=== PATIENT | male | born 1935 | race Caucasian/White ===

== ENCOUNTER 2016-12-15 20:34 | Inpatient (IN) | payer OTHER, BC ==
[~2016-12-15] VITALS: Ht 170.2 cm; Wt 97.0 kg
[~2016-12-15 20:34] MED LIST: BICA50TA6 PO; HYDR1OIN11 TOP; LISI-725 PO; LPR25 PO; NVLNI SC; SIMV20TA5 PO; [UNRECOGNIZED DRUG - CODE] TOP
--- NOTE | 2016-12-15 21:33 | DIAGNOSTIC IMAGING REPORT ---
CHEST ONE VIEW PORTABLE HISTORY: Atypical chest pain. Short of breath. COMPARISON: None. FINDINGS: The heart is mildly enlarged. No pleural effusions. No pneumothorax. Perihilar and bibasilar interstitial and vascular thickening. This favors mild pulmonary edema. Calcified granuloma within the right midlung zone. Poststernotomy changes. Multiple electronic devices are overlying the chest. IMPRESSION: Cardiomegaly with mild delayed interstitial pulmonary edema. Electronically signed by: Zoltan Hdz M.D. 12/15/2016 9:32 PM Dictated Date/Time: 12/15/2016 9:31 PM
[2016-12-15 21:45] LABS: BASO % 0.3 %; BASO ABS # 0.03 K/uL (0-0.2); EOS % 3.5 %; IG% 0.4 %; LYMPH ABS # 1.97 K/uL (1.2-3.4); MEAN CORPUSCULAR HEMOGLOBIN 28.4 pg (25-34); MEAN CORPUSCULAR HGB CONC 30.9 g/dl (32-36); MEAN PLATELET VOLUME 8.7 fL (7.4-10.4); MONO % 7.2 %; NEUT % 66.6 %; PLATELET COUNT 310 K/uL (130-400); WHITE BLOOD COUNT 8.95 K/uL (4.8-10.8)
[2016-12-15 22:01] LABS: PARTIAL THROMBOPLASTIN RATIO 1.5; PROTHROMBIN TIME (PATIENT) 70.8 SECONDS (9.0-12.0)
[2016-12-15 22:03] LABS: ALT/SGPT 29 U/L (12-78); BLOOD UREA NITROGEN 64 mg/dl (7-18); BUN/CREATININE RATIO 30.5 (10-20); CALCIUM 7.8 mg/dl (8.5-10.1); CARBON DIOXIDE 24 mmol/L (21-32); CHLORIDE 109 mmol/L (98-107); GLUCOSE 177 mg/dl (70-99); INR 6.1 (0.9-1.1); SODIUM 144 mmol/L (136-145)
[2016-12-15 22:08] LABS: ALB/GLOB RATIO 0.8 (0.9-2); ALKALINE PHOSPHATASE 72 U/L (45-117); AST/SGOT 20 U/L (15-37); CKMB/CK RATIO 4.9 (0-3.0)
[2016-12-15 22:10] LABS: COMPLETE YES; OVALOCYTES 1+; POLYCHROMASIA 1+; SCHISTOCYTES 1+
[2016-12-15] MEDS ORDERED: ASPI81TA28 PO (22:11)
[2016-12-15] MEDS ORDERED: ACET325T96 PO (22:11)
[2016-12-15] MEDS ORDERED: INSU3INJ3 SC (22:11)
[2016-12-15] MEDS ORDERED: FERR325T5 PO (22:11)
[2016-12-15] MEDS ORDERED: WARF6TAB PO (22:11)
[2016-12-15] MEDS ORDERED: ATOR10TA88 PO (22:11)
[2016-12-15] MEDS ORDERED: FRS/40 PO (22:11)
[2016-12-15] MEDS ORDERED: NVLGI/PEN SC (22:11)
[2016-12-15] MEDS ORDERED: MULT-506 PO (22:11)
[2016-12-15] MEDS ORDERED: CLOP1TAB15 PO (22:11)
[2016-12-15] MEDS ORDERED: IPRASOL4 INH (22:11)
[2016-12-15] MEDS ORDERED: CARV6.252 PO (22:11)
[2016-12-16] VITALS (22 sets, daily range): BP systolic 98–152; BP diastolic 50–82; PULSE 61–88; TEMP 36.2–36.9; O2SAT 83–99; Ht 170.2 cm; Wt 97.0 kg
[2016-12-16] MEDS ORDERED: ACETAMINOPHEN IV 100 ML IV PRN
[2016-12-16] MEDS ORDERED: DEXTROSE 50% 50 ML SYR IV PRN
[2016-12-16] MEDS ORDERED: GLUCOSE 40% GEL 15 GM TUBE PO PRN
[2016-12-16] MEDS ORDERED: GLUCOSE 10 TABS/TUBE PO PRN
[2016-12-16] MEDS ORDERED: ONDANSETRON INJ 2 MG/ML 2 ML VIAL IV PRN
[2016-12-16] MEDS ORDERED: GLUCAGON FOR INJ 1 MG VIAL SQ PRN
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
[2016-12-16 00:36] LABS: HEMATOCRIT 25.4 % (42-52)
[2016-12-16] MEDS ORDERED: PHYTONADIONE INJ 10 MG in SODIUM CHLORIDE 0.9% 50ML 50 ML IV ONE (01:00)
[2016-12-16] MEDS ORDERED: PANTOprazole INJ 80 MG in DEXTROSE 5% 100ML IV SCH (01:00)
[2016-12-16] MEDS: PANTOprazole INJ 40 MG in DEXTROSE 5% 100ML IV SCH ×5 (01:08→19:57)
[2016-12-16 01:10] LABS: CKMB/CK RATIO 4.2 (0-3.0)
[2016-12-16] MEDS: INSULIN DETEMIR FLEXPEN/FLEX TOUCH 100 UNITS/ML 3ML SC SCH ×2 (01:15→21:22)
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
[2016-12-16] MEDS: INSULIN ASPART 100 UNITS/ML 3 ML PEN SC SCH ×4 (07:00→21:21)
[2016-12-16 09:15] LABS: PARTIAL THROMBOPLASTIN RATIO 1.2; PROTHROMBIN TIME (PATIENT) 22.5 SECONDS (9.0-12.0)
[2016-12-16 09:22] LABS: HEMATOCRIT 26.8 % (42-52); MEAN CELL VOLUME 88.7 fL (80-100); MEAN CORPUSCULAR HEMOGLOBIN 28.1 pg (25-34); MEAN CORPUSCULAR HGB CONC 31.7 g/dl (32-36); MEAN PLATELET VOLUME 8.4 fL (7.4-10.4); PLATELET COUNT 253 K/uL (130-400); RED BLOOD COUNT 3.02 M/uL (4.7-6.1); WHITE BLOOD COUNT 9.45 K/uL (4.8-10.8)
[2016-12-16 09:31] LABS: BASO % 0.5 %; BASO ABS # 0.05 K/uL (0-0.2); COMPLETE YES; EOS % 4.4 %; IG% 0.3 %; LYMPH % 21.2 %; MONO % 6.2 %; NEUT % 67.4 %; POLYCHROMASIA 1+
[2016-12-16 09:36] LABS: BUN/CREATININE RATIO 28.2 (10-20); CREATININE 2.1 mg/dl (0.60-1.40); MAGNESIUM 2.2 mg/dl (1.8-2.4); POTASSIUM 4.8 mmol/L (3.5-5.1)
[2016-12-16 09:45] LABS: CKMB/CK RATIO 5.4 (0-3.0)
[2016-12-16] MEDS ORDERED: CARVEDILOL 3.125 MG TAB PO STA (09:58)
--- NOTE | 2016-12-16 10:51 | Nephrology Consultation ---
Nephrology Consultation Date & Providers Date of Consultation: Dec 16, 2016. Primary Care Provider: Callum Roblero D.O. Referring Provider: Reason for Consultation Evaluation management for chronic kidney disease and anemia. History of Present Illness Jonnie Is a 81-year-old gentlemen with past medical history significant for stage 4 chronic kidney disease, hypertension, diabetes, coronary artery disease , congestive heart failure with low ejection fraction admitted to the hospital with chest pain. nephrologic consult was requested to manage at chronic kidney disease and anemia. Electronic medical records including labs and imaging are reviewed in detail during patient's visit. Jonnie has history of coronary artery disease and previously had a CABG 20 years ago, recently had acute [place] and stent in left main and circumflex at almost 2 weeks ago. yesterday he was admitted to the hospital after he experienced sudden chest pain and shortness of breath. On admission EKG showed T inversion laterally ED and mild elevation in troponin. was given nitroglycerin and his chest pain resolved. Chest x-ray showed mild pulmonary condition. Currently he is otherwise asymptomatic and denies any further episode of shortness of breath, palpitation or chest pain. His ejection fraction is 15-20 percent, chronically on Lasix 40 twice a day which has been on hold. On admission he was also found to be significantly anemic his hemoglobin was 7.1, he was given 2 units of blood transfusion and hemoglobin now improved to 8.5. During his recent hospitalization in [facility] he had an episode of GI bleeding requiring blood transfusion. He has them AFib, has been on Coumadin, INR on admission was above 6 and Coumadin has been on hold, was given vitamin K. Has history of via chronic kidney disease size, he follows with a senior asp net developer in [facility], baseline creatinine reported to be 2.2-2.3, on admission creatinine was 2.1. No urinalysis or renal ultrasound available. Current estimated GFR around 29.. He denies any voiding symptoms, dysuria, hematuria or flank pain. Has history of prostate cancer currently on Casodex. His a ex- smoker, quit smoking more than 35 years ago, no family history of chronic kidney disease or end-stage renal disease. Allergies Coded Allergies: Iodine (Verified Allergy, Intermediate, "I GET HOT.", 01/14/15) Inpatient Medications Current Inpatient Medications Medications (Trade) Dose Ordered Sig/Rick Route Start Time Stop Time Status Last Admin Dose Admin Insulin Detemir (Levemir Flexpen/ FlexTouch) 10 unit HS SC 12/16/16 01:15 01/15/17 01:14 Albuterol/ Ipratropium (Duoneb) 3 ml QID PRN INH 12/16/16 00:00 01/15/17 00:00 Ondansetron HCl (Zofran Inj) 4 mg Q6H PRN IV 12/16/16 00:00 01/15/17 00:00 Insulin Aspart (novoLOG ASPART) SLIDING SCALE If C... ACHS SC 12/16/16 07:00 01/15/17 06:59 Glucose (Glucose 40% Gel) UD PRN PO 12/16/16 00:00 01/15/17 00:00 Glucose (Glucose Chew Tab) 1 tabs UD PRN PO 12/16/16 00:00 01/15/17 00:00 Dextrose (Dextrose 50% 50ML Syringe) 50 ml UD PRN IV 12/16/16 00:00 01/15/17 00:00 Glucagon (Glucagon Inj) 1 mg UD PRN SQ 12/16/16 00:00 01/15/17 00:00 Acetaminophen 100 ml @ 400 mls/hr Q8H PRN IV 12/16/16 00:00 01/15/17 00:00 Pantoprazole Sodium 40 mg/ Dextrose 100 ml @ 20 mls/hr Q5H IV 12/16/16 01:15 01/15/17 01:14 12/16/16 05:36 20 MLS/HR Carvedilol (Coreg Tab) 6.25 mg BID PO 12/16/16 21:00 01/15/17 20:59 Atorvastatin Calcium (Lipitor Tab) 80 mg QAM PO 12/17/16 09:00 01/16/17 08:59 Clopidogrel Bisulfate (plAVix TAB) 75 mg QAM PO 12/17/16 09:00 01/16/17 08:59 Family History Patient reports no known family medical history. Social History Smoking Status: Former Smoker Smokeless Tobacco Use: No Drug Use: none Marital Status: Housing Status: lives with family Occupation: retired Review of Systems A complete review of systems was performed. Pertinent positives are noted above. All other systems are negative. Physical Exam Date Time Temp Pulse Resp B/P (MAP) Pulse Ox O2 Delivery O2 Flow Rate FiO2 12/16/16 08:00 Room Air 12/16/16 07:53 36.8 75 18 120/64 (82) 96 12/16/16 05:30 36.2 62 20 106/50 95 2.0 12/16/16 04:30 36.3 70 18 127/60 98 2.0 12/16/16 04:00 99 Nasal Cannula 2.0 12/16/16 04:00 36.3 67 18 127/56 98 2.0 12/16/16 03:44 36.3 68 18 127/56 99 2.0 12/16/16 02:30 36.6 72 18 119/68 99 2.0 12/16/16 01:30 36.6 68 18 110/63 98 2.0 12/16/16 01:00 36.6 70 16 110/63 95 2.0 12/16/16 00:46 36.5 72 16 108/50 99 2.0 12/16/16 00:13 36.5 74 18 133/68 93 Nasal Cannula 2.0 12/15/16 23:42 36.5 72 18 108/50 99 12/15/16 23:15 72 18 108/50 99 Nasal Cannula 2.0 12/15/16 22:00 63 20 110/56 98 Room Air 12/15/16 21:19 97 Nasal Cannula 2.0 12/15/16 21:19 97 Nasal Cannula 2.0 12/15/16 20:48 77 12/15/16 20:41 88 Room Air 12/15/16 20:41 96 Nasal Cannula 2.0 12/15/16 20:41 36.5 79 20 118/49 88 Room Air GENERAL: Elderly male, AAA x 3, pleasant, healthy-appearing, in mild distress. HEENT: Atraumatic, normocephalic. NECK: Supple, no JVD, no carotid bruit appreciated. ENT: No sinus tenderness MOUTH and THROAT: Moist oral mucosa, no oral ulcer or pharyngeal erythema RESPIRATORY: Normal breathing efforts, rales and occasional wheezes bilaterally. CARDIOVASCULAR: S1, S2 normal, rate rhythm regular. ABDOMEN: Soft, nontender, positive bowel sound. MUSCULOSKELETAL: No CVA tenderness. No joint swelling, erythema or tenderness. Normal range of motion. SKIN: No skin rash EXTREMITY: No lower extremity edema NEURO: No gross focal neurological deficit, speech fluent. PSYCHIATRY: Normal mood and judgment Laboratory Results Last 24 Hours Test 12/15/16 21:20 12/16/16 00:29 12/16/16 01:10 12/16/16 06:46 White Blood Count 8.95 K/uL Red Blood Count 2.50 M/uL Hemoglobin 7.1 g/dL 7.4 g/dL Hematocrit 23.0 % 25.4 % Mean Corpuscular Volume 92.0 fL Mean Corpuscular Hemoglobin 28.4 pg Mean Corpuscular Hemoglobin Concent 30.9 g/dl Platelet Count 310 K/uL Mean Platelet Volume 8.7 fL Neutrophils (%) (Auto) 66.6 % Lymphocytes (%) (Auto) 22.0 % Monocytes (%) (Auto) 7.2 % Eosinophils (%) (Auto) 3.5 % Basophils (%) (Auto) 0.3 % Neutrophils # (Auto) 5.96 K/uL Lymphocytes # (Auto) 1.97 K/uL Monocytes # (Auto) 0.64 K/uL Eosinophils # (Auto) 0.31 K/uL Basophils # (Auto) 0.03 K/uL RDW Standard Deviation 52.9 fL RDW Coefficient of Variation 16.1 % Immature Granulocyte % (Auto) 0.4 % Immature Granulocyte # (Auto) 0.04 K/uL Polychromasia 1+ Ovalocytes 1+ Schistocytes 1+ Prothrombin Time 70.8 SECONDS Prothromb Time International Ratio 6.1 Activated Partial Thromboplast Time 38.7 SECONDS Partial Thromboplastin Ratio 1.5 Sodium Level 144 mmol/L Potassium Level 4.0 mmol/L Chloride Level 109 mmol/L Carbon Dioxide Level 24 mmol/L Anion Gap 11.0 mmol/L Blood Urea Nitrogen 64 mg/dl Creatinine 2.10 mg/dl Est Creatinine Clear Calc Drug Dose 32.5 ml/min Estimated GFR () 33.7 Estimated GFR (Non- 29.1 BUN/Creatinine Ratio 30.5 Random Glucose 177 mg/dl Calcium Level 7.8 mg/dl Total Bilirubin 0.3 mg/dl Direct Bilirubin < 0.1 mg/dl Aspartate Amino Transf (AST/SGOT) 20 U/L Alanine Aminotransferase (ALT/SGPT) 29 U/L Alkaline Phosphatase 72 U/L Total Creatine Kinase 35 U/L 38 U/L Creatine Kinase MB 1.7 ng/ml 1.6 ng/ml Creatine Kinase MB Ratio 4.9 4.2 Troponin I 0.042 ng/ml 0.136 ng/ml Total Protein 6.5 gm/dl Albumin 2.9 gm/dl Globulin 3.6 gm/dl Albumin/Globulin Ratio 0.8 Lipase 226 U/L Bedside Glucose 125 mg/dl 152 mg/dl Test 12/16/16 08:52 White Blood Count 9.45 K/uL Red Blood Count 3.02 M/uL Hemoglobin 8.5 g/dL Hematocrit 26.8 % Mean Corpuscular Volume 88.7 fL Mean Corpuscular Hemoglobin 28.1 pg Mean Corpuscular Hemoglobin Concent 31.7 g/dl Platelet Count 253 K/uL Mean Platelet Volume 8.4 fL Neutrophils (%) (Auto) 67.4 % Lymphocytes (%) (Auto) 21.2 % Monocytes (%) (Auto) 6.2 % Eosinophils (%) (Auto) 4.4 % Basophils (%) (Auto) 0.5 % Neutrophils # (Auto) 6.36 K/uL Lymphocytes # (Auto) 2.00 K/uL Monocytes # (Auto) 0.59 K/uL Eosinophils # (Auto) 0.42 K/uL Basophils # (Auto) 0.05 K/uL RDW Standard Deviation 54.9 fL RDW Coefficient of Variation 17.1 % Immature Granulocyte % (Auto) 0.3 % Immature Granulocyte # (Auto) 0.03 K/uL Polychromasia 1+ Prothrombin Time 22.5 SECONDS Prothromb Time International Ratio 2.0 Activated Partial Thromboplast Time 32.2 SECONDS Partial Thromboplastin Ratio 1.2 Sodium Level 145 mmol/L Potassium Level 4.8 mmol/L Chloride Level 111 mmol/L Carbon Dioxide Level 29 mmol/L Anion Gap 5.0 mmol/L Blood Urea Nitrogen 59 mg/dl Creatinine 2.10 mg/dl Est Creatinine Clear Calc Drug Dose 31.4 ml/min Estimated GFR () 33.7 Estimated GFR (Non- 29.1 BUN/Creatinine Ratio 28.2 Random Glucose 163 mg/dl Magnesium Level 2.2 mg/dl Total Bilirubin 0.6 mg/dl Direct Bilirubin 0.2 mg/dl Aspartate Amino Transf (AST/SGOT) 19 U/L Alanine Aminotransferase (ALT/SGPT) 29 U/L Alkaline Phosphatase 71 U/L Total Creatine Kinase 37 U/L Creatine Kinase MB 2.0 ng/ml Creatine Kinase MB Ratio 5.4 Troponin I 0.184 ng/ml Total Protein 6.2 gm/dl Albumin 2.9 gm/dl Impression (1) Chronic renal disease, stage IV (2) Anemia (3) Elevated INR (4) CHF (congestive heart failure) (5) Hypertension Jonnie Is a 81-year-old gentlemen with them history of stage 4 chronic kidney disease, hypertension, coronary artery disease, congestive heart failure with systolic dysfunction admitted to the hospital with chest pain. Was recently found to have anemia with GI bleeding requiring blood transfusion. On admission hemoglobin was 7.1, received 2 units of blood transfusion and hemoglobin improved to 8.5. His INR was elevated at 6, Coumadin on hold and received vitamin K. troponin was just mildly elevated probably secondary to demand ischemia in the setting of anemia. chest pain currently totally resolved and patient is otherwise feeling fine as hemoglobin improved to 8.5 Has stage 4 chronic kidney disease, baseline creatinine seems to be some at 2.2- 2.3, unclear etiology but could be secondary to have microvascular disease or cardiorenal syndrome type 2. he follows with senior asp net developer in [place]. His renal functions currently at baseline, 2.1 and estimated GFR 29. Recommendations --considering patient's significant history of coronary artery disease, CHF, low ejection fraction, suggest keeping hemoglobin above 9 --will give 1 dose of Epogen 73744 units --resume Lasix 40 milligram twice a day --Avoid nephrotoxins medications, avoid IV fluid --may need GI workup if no recent EGD or colonoscopy --monitor renal function with daily renal panel however, patient's renal function seems to be at his baseline --After discharge he will follow with his senior asp net developer for further need for Epogen or Venofer. Thank you for allowing me to participate in your patient's care. It was a pleasure to see Jonnie. This chart was completed utilizing [employer] Speech and voice recognition software. Grammatical errors, random word insertions, pronoun errors and incomplete sentences are occasional consequences of this system. Any questions or concerns about the content, text or information contained within the body of this dictation should be addressed directly to the physician for clarification.
[2016-12-16] MEDS ORDERED: EPOETIN ALFA 10,000 UNITS/ML VIAL SQ SCH (11:00)
[2016-12-16 13:10] LABS: CALCIUM 8.3 mg/dl (8.5-10.1)
[2016-12-16 13:48] LABS: FERRITIN 50.9 ng/ml (8.0-388.0)
--- NOTE | 2016-12-16 14:08 | Gastrointestinal Consultation ---
Gastrointestinal Consultation Date of Consultation: Dec 16, 2016 Attending Physician: Dr. Sharma Consulting Physician: Dr. Painter Reason for Consultation: Anemia History of Present Illness Patient is a 81 year old male who presented to the [facility] on 12/15 with complaints of CP and SOB. He was recently admitted to [facility], and underwent cardiac cath with stents x2. Post-cath he developed A-fib, and was placed on Coumadin therapy, in addition to ASA and Plavix therapy. Prior to his discharge he reportedly was anemic, and had a "GI Bleed". The patient states that he underwent an EGD and Colonoscopy while hospitalized, however, when records were requested, there was no report of these tests having been performed at that time. Upon arrival to our ER he was noted to have an H/H of 7.1/23 and his INR >6. He was admitted to the [address] [place] [address] ICU and was transfused 2u PRBC. He was started on a Protonix gtt, and had his INR reversed with Vitamin K. He has not had any overt GI bleeding since his arrival. He does admit to black stools, however, he attributes this to his Iron therapy. At the time that I saw him, he denied any chest pain, abdominal pain, hematemesis, melena or hematochezia. He states that he feels better following his blood transfusion. He does continue to have some SOB and JEAN-BAPTISTE. He denies any further complaints. Past Medical/Surgical History Medical Problems: (1) Anemia Status: Acute (2) Chest pain Status: Acute (3) Elevated INR Status: Acute (4) GI bleed Status: Acute (5) Renal insufficiency Status: Acute (6) SOB (shortness of breath) Status: Acute Past Medical History: 1) CAD 2) Chronic Kidney Disease (Stage IV) 3) HTN 4) DM 5) LVEF 15-20% 6) Left sided heart failure 7) Anemia 8) Prostate CA Past Surgical History: 1) CABG 2) Cardiac Cath with stents x2 3) EGD 4) Colonoscopy Family History Patient reports no known family medical history. Social History Smoking Status: Former Smoker Drug Use: none Marital Status: Housing Status: lives with family Occupation Status: retired Allergies Coded Allergies: Iodine (Verified Allergy, Intermediate, "I GET HOT.", 01/14/15) Current Medications Home Meds and Scripts Medications Dose Route/Sig Max Daily Dose Days Date Category Dose Instructions Tylenol (Acetaminophen) 325 Mg Tab 650 Mg PO Q6H PRN 12/15/16 Reported Duoneb (Ipratropium-Albuterol) 3 Ml Nebu 1 Treatment INH QID PRN 12/15/16 Reported Lipitor (Atorvastatin Calcium) 10 Mg Tab 10 Mg PO QPM 12/15/16 Reported Coumadin (Warfarin Sodium) 6 Mg Tab 6 Mg PO QPM 12/15/16 Reported TAKE 6 MG EVERY DAY OR OTHERWISE DIRECTED TO TAKE BY ANTICOAGULATION CLINIC/MD Multivitamin (Multivitamins) Tab 1 Tab PO QAM 12/15/16 Reported Levemir Flextouch (Insulin Detemir) 100 Unit/Ml Inj 50 Units SC HS 12/15/16 Reported Novolog Flexpen (Insulin Aspart) 100 Units/Ml Inj 10 Units SC TIDM 12/15/16 Reported Lasix (Furosemide) 40 Mg Tab 40 Mg PO BID 12/15/16 Reported Ferrous Sulfate 325 Mg Tab 325 Mg PO BID 12/15/16 Reported Plavix (Clopidogrel Bisulfate) 75 Mg Tab 75 Mg PO QAM 12/15/16 Reported Coreg (Carvedilol) 6.25 Mg Tab 6.25 Mg PO BID 12/15/16 Reported Aspirin Ec (Aspirin) 81 Mg Tab 81 Mg PO QAM 12/15/16 Reported Casodex (Bicalutamide) 50 Mg Tab 50 Mg PO QAM 01/14/15 Reported Review of Systems Constitutional: No fever, No chills, No weight loss ENT: No sore throat Respiratory: + shortness of breath, + dyspnea on exertion, No cough, No wheezing Cardiac: No chest pain, No edema Abdomen: No nausea, No vomiting, No diarrhea, No constipation, No dysphagia, No odynophagia, No jaundice Male : No dysuria, No hematuria Psych: No depression symptoms Heme: No abnormal bleeding/bruising Endo: + fatigue Skin: No rash, No itch Physical Exam Date Time Temp Pulse Resp B/P (MAP) Pulse Ox O2 Delivery O2 Flow Rate FiO2 12/16/16 12:00 Room Air 12/16/16 11:44 36.5 88 16 128/63 (84) 97 12/16/16 08:00 Room Air 12/16/16 07:53 36.8 75 18 120/64 (82) 96 12/16/16 05:30 36.2 62 20 106/50 95 2.0 12/16/16 04:30 36.3 70 18 127/60 98 2.0 12/16/16 04:00 99 Nasal Cannula 2.0 12/16/16 04:00 36.3 67 18 127/56 98 2.0 12/16/16 03:44 36.3 68 18 127/56 99 2.0 12/16/16 02:30 36.6 72 18 119/68 99 2.0 12/16/16 01:30 36.6 68 18 110/63 98 2.0 12/16/16 01:00 36.6 70 16 110/63 95 2.0 12/16/16 00:46 36.5 72 16 108/50 99 2.0 12/16/16 00:13 36.5 74 18 133/68 93 Nasal Cannula 2.0 12/15/16 23:42 36.5 72 18 108/50 99 12/15/16 23:15 72 18 108/50 99 Nasal Cannula 2.0 12/15/16 22:00 63 20 110/56 98 Room Air 12/15/16 21:19 97 Nasal Cannula 2.0 12/15/16 21:19 97 Nasal Cannula 2.0 12/15/16 20:48 77 12/15/16 20:41 88 Room Air 12/15/16 20:41 96 Nasal Cannula 2.0 12/15/16 20:41 36.5 79 20 118/49 88 Room Air General Appearance: + pertinent finding (Chronic ill-apperaing, NAD) Eyes: PERRL, EOMI ENT: hearing grossly normal Neck: supple, no adenopathy Respiratory/Chest: + decreased breath sounds (at bilateral bases) Cardiovascular: regular rate, rhythm Abdomen: normal bowel sounds, non tender, soft Extremities: no pedal edema Neurologic/Psych: alert, oriented x 3 Skin: no jaundice Laboratory Results Last 24 Hours Test 12/15/16 21:20 12/16/16 00:29 12/16/16 01:10 12/16/16 06:46 White Blood Count 8.95 K/uL Red Blood Count 2.50 M/uL Hemoglobin 7.1 g/dL 7.4 g/dL Hematocrit 23.0 % 25.4 % Mean Corpuscular Volume 92.0 fL Mean Corpuscular Hemoglobin 28.4 pg Mean Corpuscular Hemoglobin Concent 30.9 g/dl Platelet Count 310 K/uL Mean Platelet Volume 8.7 fL Neutrophils (%) (Auto) 66.6 % Lymphocytes (%) (Auto) 22.0 % Monocytes (%) (Auto) 7.2 % Eosinophils (%) (Auto) 3.5 % Basophils (%) (Auto) 0.3 % Neutrophils # (Auto) 5.96 K/uL Lymphocytes # (Auto) 1.97 K/uL Monocytes # (Auto) 0.64 K/uL Eosinophils # (Auto) 0.31 K/uL Basophils # (Auto) 0.03 K/uL RDW Standard Deviation 52.9 fL RDW Coefficient of Variation 16.1 % Immature Granulocyte % (Auto) 0.4 % Immature Granulocyte # (Auto) 0.04 K/uL Polychromasia 1+ Ovalocytes 1+ Schistocytes 1+ Prothrombin Time 70.8 SECONDS Prothromb Time International Ratio 6.1 Activated Partial Thromboplast Time 38.7 SECONDS Partial Thromboplastin Ratio 1.5 Sodium Level 144 mmol/L Potassium Level 4.0 mmol/L Chloride Level 109 mmol/L Carbon Dioxide Level 24 mmol/L Anion Gap 11.0 mmol/L Blood Urea Nitrogen 64 mg/dl Creatinine 2.10 mg/dl Est Creatinine Clear Calc Drug Dose 32.5 ml/min Estimated GFR () 33.7 Estimated GFR (Non- 29.1 BUN/Creatinine Ratio 30.5 Random Glucose 177 mg/dl Calcium Level 7.8 mg/dl Total Bilirubin 0.3 mg/dl Direct Bilirubin < 0.1 mg/dl Aspartate Amino Transf (AST/SGOT) 20 U/L Alanine Aminotransferase (ALT/SGPT) 29 U/L Alkaline Phosphatase 72 U/L Total Creatine Kinase 35 U/L 38 U/L Creatine Kinase MB 1.7 ng/ml 1.6 ng/ml Creatine Kinase MB Ratio 4.9 4.2 Troponin I 0.042 ng/ml 0.136 ng/ml Total Protein 6.5 gm/dl Albumin 2.9 gm/dl Globulin 3.6 gm/dl Albumin/Globulin Ratio 0.8 Lipase 226 U/L Bedside Glucose 125 mg/dl 152 mg/dl Test 12/16/16 08:52 12/16/16 11:44 White Blood Count 9.45 K/uL Red Blood Count 3.02 M/uL Hemoglobin 8.5 g/dL Hematocrit 26.8 % Mean Corpuscular Volume 88.7 fL Mean Corpuscular Hemoglobin 28.1 pg Mean Corpuscular Hemoglobin Concent 31.7 g/dl Platelet Count 253 K/uL Mean Platelet Volume 8.4 fL Neutrophils (%) (Auto) 67.4 % Lymphocytes (%) (Auto) 21.2 % Monocytes (%) (Auto) 6.2 % Eosinophils (%) (Auto) 4.4 % Basophils (%) (Auto) 0.5 % Neutrophils # (Auto) 6.36 K/uL Lymphocytes # (Auto) 2.00 K/uL Monocytes # (Auto) 0.59 K/uL Eosinophils # (Auto) 0.42 K/uL Basophils # (Auto) 0.05 K/uL RDW Standard Deviation 54.9 fL RDW Coefficient of Variation 17.1 % Immature Granulocyte % (Auto) 0.3 % Immature Granulocyte # (Auto) 0.03 K/uL Polychromasia 1+ Prothrombin Time 22.5 SECONDS Prothromb Time International Ratio 2.0 Activated Partial Thromboplast Time 32.2 SECONDS Partial Thromboplastin Ratio 1.2 Sodium Level 145 mmol/L Potassium Level 4.8 mmol/L Chloride Level 111 mmol/L Carbon Dioxide Level 29 mmol/L Anion Gap 5.0 mmol/L Blood Urea Nitrogen 59 mg/dl Creatinine 2.10 mg/dl Est Creatinine Clear Calc Drug Dose 31.4 ml/min Estimated GFR () 33.7 Estimated GFR (Non- 29.1 BUN/Creatinine Ratio 28.2 Random Glucose 163 mg/dl Calcium Level 8.3 mg/dl Magnesium Level 2.2 mg/dl Iron Level 50 mcg/dl Total Iron Binding Capacity 286 mcg/dl Transferrin 229 mg/dl Transferrin % Saturation 16 % Ferritin 50.9 ng/ml Total Bilirubin 0.6 mg/dl Direct Bilirubin 0.2 mg/dl Aspartate Amino Transf (AST/SGOT) 19 U/L Alanine Aminotransferase (ALT/SGPT) 29 U/L Alkaline Phosphatase 71 U/L Total Creatine Kinase 37 U/L Creatine Kinase MB 2.0 ng/ml Creatine Kinase MB Ratio 5.4 Troponin I 0.184 ng/ml Total Protein 6.2 gm/dl Albumin 2.9 gm/dl Bedside Glucose 229 mg/dl Impression Patient is a 81 year old male with multiple medical comorbidities who presented to the ER with CP, SOB and was noted to be anemic with supratherapeutic INR. Plan 1) Continue Protonix gtt at 8mg/hr 2) Obtain old records from [facility], as patient is adamant that he had EGD and Colonoscopy within the past 2-3 weeks. He does not wish to undergo these tests again at this time. 3) Transfuse as needed to maintain H/H around 10/30 secondary to CAD and recent [place] 4) If no record of recent EGD and Colonoscopy, I would recommend he undergo these tests, as he will need anticoagulation secondary to recent diagnosis of A- fib and Antiplatelet therapy secondary to recent cardiac cath with stent placement.
[2016-12-16 16:58] LABS: CKMB/CK RATIO 3.8 (0-3.0)
--- NOTE | 2016-12-16 18:50 | Family Medicine Progress Note ---
Progress Note Date of Service Dec 16, 2016. Subjective Pt evaluation today including: conversation w/ patient, physical exam, chart review, lab review Voiding: no voiding problems Patient was seen at the bedside. He was comfortably lying down on his bed. He denies any chest pain or SOB. He states that he is better than yesterday. Denies any complaints today. No acute event overnight. On tele he was sinus rhythm with heart rate mostly on 70s and 80s. Denies any GI bleeding. Constitutional: No fever Respiratory: + cough, + dyspnea on exertion, No shortness of breath, No dyspnea at rest Cardiovascular: No chest pain, No edema Abdomen: No pain, No nausea, No vomiting, No diarrhea, No GI bleeding Musculoskeletal: No muscle pain Skin: No rash, No bleeding Medications Current Inpatient Medications Medications (Trade) Dose Ordered Sig/Rick Route Start Time Stop Time Status Last Admin Dose Admin Insulin Detemir (Levemir Flexpen/ FlexTouch) 10 unit HS SC 12/16/16 01:15 01/15/17 01:14 Albuterol/ Ipratropium (Duoneb) 3 ml QID PRN INH 12/16/16 00:00 01/15/17 00:00 Ondansetron HCl (Zofran Inj) 4 mg Q6H PRN IV 12/16/16 00:00 01/15/17 00:00 Insulin Aspart (novoLOG ASPART) SLIDING SCALE If C... ACHS SC 12/16/16 07:00 01/15/17 06:59 12/16/16 17:00 8 UNITS Glucose (Glucose 40% Gel) UD PRN PO 12/16/16 00:00 01/15/17 00:00 Glucose (Glucose Chew Tab) 1 tabs UD PRN PO 12/16/16 00:00 01/15/17 00:00 Dextrose (Dextrose 50% 50ML Syringe) 50 ml UD PRN IV 12/16/16 00:00 01/15/17 00:00 Glucagon (Glucagon Inj) 1 mg UD PRN SQ 12/16/16 00:00 01/15/17 00:00 Acetaminophen 100 ml @ 400 mls/hr Q8H PRN IV 12/16/16 00:00 01/15/17 00:00 Pantoprazole Sodium 40 mg/ Dextrose 100 ml @ 20 mls/hr Q5H IV 12/16/16 01:15 01/15/17 01:14 12/16/16 16:03 20 MLS/HR Carvedilol (Coreg Tab) 6.25 mg BID PO 12/16/16 21:00 01/15/17 20:59 Atorvastatin Calcium (Lipitor Tab) 80 mg QAM PO 12/17/16 09:00 01/16/17 08:59 Clopidogrel Bisulfate (plAVix TAB) 75 mg QAM PO 12/17/16 09:00 01/16/17 08:59 Furosemide (Lasix Tab) 40 mg BID17 PO 12/16/16 21:00 01/15/17 20:59 Objective Vital Signs Date Time Temp Pulse Resp B/P (MAP) Pulse Ox O2 Delivery O2 Flow Rate FiO2 12/16/16 16:03 36.5 61 22 121/61 (81) 96 Nasal Cannula 3.0 12/16/16 16:00 Room Air 12/16/16 12:00 Room Air 12/16/16 11:44 36.5 88 16 128/63 (84) 97 12/16/16 08:00 Room Air 12/16/16 07:53 36.8 75 18 120/64 (82) 96 12/16/16 05:30 36.2 62 20 106/50 95 2.0 12/16/16 04:30 36.3 70 18 127/60 98 2.0 12/16/16 04:00 99 Nasal Cannula 2.0 12/16/16 04:00 36.3 67 18 127/56 98 2.0 12/16/16 03:44 36.3 68 18 127/56 99 2.0 12/16/16 02:30 36.6 72 18 119/68 99 2.0 12/16/16 01:30 36.6 68 18 110/63 98 2.0 12/16/16 01:00 36.6 70 16 110/63 95 2.0 12/16/16 00:46 36.5 72 16 108/50 99 2.0 12/16/16 00:13 36.5 74 18 133/68 93 Nasal Cannula 2.0 12/15/16 23:42 36.5 72 18 108/50 99 12/15/16 23:15 72 18 108/50 99 Nasal Cannula 2.0 12/15/16 22:00 63 20 110/56 98 Room Air 12/15/16 21:19 97 Nasal Cannula 2.0 12/15/16 21:19 97 Nasal Cannula 2.0 12/15/16 20:48 77 12/15/16 20:41 88 Room Air 12/15/16 20:41 96 Nasal Cannula 2.0 12/15/16 20:41 36.5 79 20 118/49 88 Room Air Physical Exam General Appearance: WD/WN, no apparent distress Neck: supple, trachea midline Respiratory/Chest: chest non-tender, no accessory muscle use, + decreased breath sounds, + rales, + wheezing Cardiovascular: regular rate, rhythm, no edema Abdomen: normal bowel sounds, non tender, soft Extremities: non-tender, no pedal edema Neurologic/Psychiatric: alert, normal mood/affect, oriented x 3 Skin: normal color, warm/dry, no rash Laboratory Results Results Past 24 Hours Test 12/15/16 21:20 12/16/16 00:29 12/16/16 01:10 12/16/16 06:46 Range/Units White Blood Count 8.95 4.8-10.8 K/uL Red Blood Count 2.50 4.7-6.1 M/uL Hemoglobin 7.1 7.4 14.0-18.0 g/dL Hematocrit 23.0 25.4 42-52 % Mean Corpuscular Volume 92.0 80-100 fL Mean Corpuscular Hemoglobin 28.4 25-34 pg Mean Corpuscular Hemoglobin Concent 30.9 32-36 g/dl Platelet Count 310 130-400 K/uL Mean Platelet Volume 8.7 7.4-10.4 fL Neutrophils (%) (Auto) 66.6 % Lymphocytes (%) (Auto) 22.0 % Monocytes (%) (Auto) 7.2 % Eosinophils (%) (Auto) 3.5 % Basophils (%) (Auto) 0.3 % Neutrophils # (Auto) 5.96 1.4-6.5 K/uL Lymphocytes # (Auto) 1.97 1.2-3.4 K/uL Monocytes # (Auto) 0.64 0.11-0.59 K/uL Eosinophils # (Auto) 0.31 0-0.5 K/uL Basophils # (Auto) 0.03 0-0.2 K/uL RDW Standard Deviation 52.9 36.4-46.3 fL RDW Coefficient of Variation 16.1 11.5-14.5 % Immature Granulocyte % (Auto) 0.4 % Immature Granulocyte # (Auto) 0.04 0.00-0.02 K/uL Polychromasia 1+ Ovalocytes 1+ Schistocytes 1+ Prothrombin Time 70.8 9.0-12.0 SECONDS Prothromb Time International Ratio 6.1 0.9-1.1 Activated Partial Thromboplast Time 38.7 21.0-31.0 SECONDS Partial Thromboplastin Ratio 1.5 Sodium Level 144 136-145 mmol/L Potassium Level 4.0 3.5-5.1 mmol/L Chloride Level 109 98-107 mmol/L Carbon Dioxide Level 24 21-32 mmol/L Anion Gap 11.0 3-11 mmol/L Blood Urea Nitrogen 64 7-18 mg/dl Creatinine 2.10 0.60-1.40 mg/dl Est Creatinine Clear Calc Drug Dose 32.5 ml/min Estimated GFR () 33.7 Estimated GFR (Non- 29.1 BUN/Creatinine Ratio 30.5 10-20 Random Glucose 177 70-99 mg/dl Calcium Level 7.8 8.5-10.1 mg/dl Total Bilirubin 0.3 0.2-1 mg/dl Direct Bilirubin < 0.1 0-0.2 mg/dl Aspartate Amino Transf (AST/SGOT) 20 15-37 U/L Alanine Aminotransferase (ALT/SGPT) 29 12-78 U/L Alkaline Phosphatase 72 45-117 U/L Total Creatine Kinase 35 38 39-308 U/L Creatine Kinase MB 1.7 1.6 0.5-3.6 ng/ml Creatine Kinase MB Ratio 4.9 4.2 0-3.0 Troponin I 0.042 0.136 0-0.045 ng/ml Total Protein 6.5 6.4-8.2 gm/dl Albumin 2.9 3.4-5.0 gm/dl Globulin 3.6 2.5-4.0 gm/dl Albumin/Globulin Ratio 0.8 0.9-2 Lipase 226 73-393 U/L Bedside Glucose 125 152 70-99 mg/dl Test 12/16/16 08:52 12/16/16 11:44 12/16/16 16:10 12/16/16 16:15 Range/Units White Blood Count 9.45 4.8-10.8 K/uL Red Blood Count 3.02 4.7-6.1 M/uL Hemoglobin 8.5 14.0-18.0 g/dL Hematocrit 26.8 42-52 % Mean Corpuscular Volume 88.7 80-100 fL Mean Corpuscular Hemoglobin 28.1 25-34 pg Mean Corpuscular Hemoglobin Concent 31.7 32-36 g/dl Platelet Count 253 130-400 K/uL Mean Platelet Volume 8.4 7.4-10.4 fL Neutrophils (%) (Auto) 67.4 % Lymphocytes (%) (Auto) 21.2 % Monocytes (%) (Auto) 6.2 % Eosinophils (%) (Auto) 4.4 % Basophils (%) (Auto) 0.5 % Neutrophils # (Auto) 6.36 1.4-6.5 K/uL Lymphocytes # (Auto) 2.00 1.2-3.4 K/uL Monocytes # (Auto) 0.59 0.11-0.59 K/uL Eosinophils # (Auto) 0.42 0-0.5 K/uL Basophils # (Auto) 0.05 0-0.2 K/uL RDW Standard Deviation 54.9 36.4-46.3 fL RDW Coefficient of Variation 17.1 11.5-14.5 % Immature Granulocyte % (Auto) 0.3 % Immature Granulocyte # (Auto) 0.03 0.00-0.02 K/uL Polychromasia 1+ Prothrombin Time 22.5 9.0-12.0 SECONDS Prothromb Time International Ratio 2.0 0.9-1.1 Activated Partial Thromboplast Time 32.2 21.0-31.0 SECONDS Partial Thromboplastin Ratio 1.2 Sodium Level 145 136-145 mmol/L Potassium Level 4.8 3.5-5.1 mmol/L Chloride Level 111 98-107 mmol/L Carbon Dioxide Level 29 21-32 mmol/L Anion Gap 5.0 3-11 mmol/L Blood Urea Nitrogen 59 7-18 mg/dl Creatinine 2.10 0.60-1.40 mg/dl Est Creatinine Clear Calc Drug Dose 31.4 ml/min Estimated GFR () 33.7 Estimated GFR (Non- 29.1 BUN/Creatinine Ratio 28.2 10-20 Random Glucose 163 70-99 mg/dl Calcium Level 8.3 8.5-10.1 mg/dl Magnesium Level 2.2 1.8-2.4 mg/dl Iron Level 50 35-175 mcg/dl Total Iron Binding Capacity 286 250-450 mcg/dl Transferrin 229 200-360 mg/dl Transferrin % Saturation 16 20-50 % Ferritin 50.9 8.0-388.0 ng/ml Total Bilirubin 0.6 0.2-1 mg/dl Direct Bilirubin 0.2 0-0.2 mg/dl Aspartate Amino Transf (AST/SGOT) 19 15-37 U/L Alanine Aminotransferase (ALT/SGPT) 29 12-78 U/L Alkaline Phosphatase 71 45-117 U/L Total Creatine Kinase 37 34 39-308 U/L Creatine Kinase MB 2.0 1.3 0.5-3.6 ng/ml Creatine Kinase MB Ratio 5.4 3.8 0-3.0 Troponin I 0.184 0.172 0-0.045 ng/ml Total Protein 6.2 6.4-8.2 gm/dl Albumin 2.9 3.4-5.0 gm/dl Bedside Glucose 229 189 70-99 mg/dl Test 12/16/16 18:31 Range/Units Assessment and Plan This is a 81-year-old male with PMHx CAD s/p CABG and 2 stent placed about 2 wks ago (left main and circumflex), HTN, DMII, systolic CHF with low EF, , PAF , COPD (on 3L oxygen at home) and stage 4 chronic kidney disease admitted to the hospital with chest pain. In ED patient was found to have low hemoglobin ( 7.1) and also required oxygen supplement. Patient was admitted to the hospital for further evaluation. Currently on 3L NC maintaining O2 sat. * Anemia (low H&H) - Could be 2/2 GI bleeding (no source is identified) vs medication (warfarin ) induced vs CKD vs anemia of chronic disease - In ED patient had supratherapeutic INR (6.1). Patient was given vitamin K and his INR improved to 2.0. This is most likely 2/2 Warfarin induced. - H&H q6h, Hgb 7.1-->7.4-->8.5 - C/w to hold Coumadin - C/w Protonix ip - Target H&H is 10/30 recommended by GI - GI is consulted and he recommended to continue with Protonix drip. Recommended to obtain record of EGD and colonoscopy that patient claims was done recently [facility]. If it was not done, Dr. Painter recommends EGD and colonoscopy. - Transfuse 1 unit of PRBC, s/p 2 unit of PRBC - Iron panel; Iron 50, TIBC 286, transferrin 229, ferritin 50.9; FOBT is pending - Given Epoetin 10,000unit per Nephrology * Coronary artery disease - s/p CABG about 20 yrs ago. 2 drug eluting stents was placed about 2 wks ago in [facility]. - Troponin was elevated most likely 2/2 demand ischemia in the setting of anemia. - Resume Plavix 75 mg per Cardiology recommendation - C/w to hold ASA and Coumadin. If his blood counts are stable will resume ASA tomorrow. - C/w carvedilol 6.25mg BID. - Continue Atorvastatin 80mg daily - Cardiology was consulted and I discussed the case with Dr. Florez. Will continue to appreciate his recommendations. * Systolic HF with low EF (15-20%) - C/w Lasix 40mg BID - Continue to monitor his I/O and weight - Monitor him in Tele * Paroxysmal Atrial fibrillation - Patient is currently on sinus rhythm - Will continue to hold Coumadin per Dr. Florez recommendation - C/w Coreg 6.25mg - Continue to monitor INR * Chronic Kidney disease (Stage 4) - His Cr is at his baseline (2.2-2.3) - Nephrology was consult and patient was seen by Dr. Dodd. She recommended resume Lasix, avoid nephrotoxins, avoid IVF, and f/u with improvement rn after d/c * Diabetics Mellitus type 2 - Levemir 10 units at bedtime but hold if sugar is less than 200. - Place on Accu-Cheks before meals and at bedtime with NovoLog coverage per scale * HLD - Continue Atorvastatin 80mg daily * Prostate Cancer - C/w to hold Casodex 50 mg * COPD - Patient is on 3L O2 at home, continue with Oxygen supplement - Continue with duoneb QID prn for wheezing/SOB * DVT prophylaxis - Chemical prophylaxis is contraindicated given low H&H and possible GI bleeding - SCDs * Code Status - Full code Reviewed: Pt Seen/Exam by Me History no rectal bleeding since being here. no chest pain. has felt short of breath Constitutional: denies: fever Gastrointestinal/Abdominal: negative: abdominal pain General Appearance: mild distress (conversational) Respiratory: lungs clear, no respiratory distress Cardiovascular: regular rate, rhythm, systolic murmur Neurologic/Psychiatric: alert, oriented x 3 Skin Characteristics: warm/dry, pallor Assessment/Plan Resident Physician Supervision Note: I was present with Dr. Griffiths in bedside. I verified the cates history and physical , reviewed labs and image studies, discussed the case with the resident and agree with the findings and care plan.
[2016-12-16] MEDS: FUROSEMIDE 40 MG TAB PO SCH (19:59)
[2016-12-16] MEDS: CARVEDILOL 6.25 MG TAB PO SCH (19:59)
--- NOTE | 2016-12-16 19:59 | Consultant Recommendations ---
Medical Laboratory Specialist Recommendations Date of Service Dec 16, 2016. Medical Laboratory Specialist Recommendations Cardiology consultation: The patient was seen and examined by me on the morning of December 16, 2016. The dictation system was not working. The full dictated consult is pending at this time. Assessment: 1. Longstanding history of coronary artery disease. Status post CABG surgery by his account in 1994. Medical records state that the surgery was performed in 2002. This is based on cardiology consultation during his November admission at [facility]. 2. Admission to [facility] November 26 - with non ST elevation myocardial infarction and pulmonary edema. Subsequent cardiac catheterization revealed patent bypass grafts. Patent left internal mammary artery graft to the distal LAD. Saphenous vein graft to LAD diagonal patent. Saphenous vein graft to 2nd obtuse marginal artery patent. Patent mid LAD stent. Proximal to mid RCA with stent with 30 percent in stent restenosis. Left main with 99 percent mid segment stenosis. First left circumflex marginal with 70 percent stenosis. Synergy ABENA 2.5 x 12 millimeter stent deployed in left circumflex marginal. Synergy ABENA 3.5 x 8 millimeter stent deployed in left main. 0 percent residual stenoses reported post intervention. TYLER 3 flow. 3. Severe left ventricular systolic dysfunction. Reported LV ejection fraction on cardiac catheterization 15-20 percent. Global hypokinesis of left ventricle. 4. Severe aortic stenosis by report. Transaortic valve gradient 38 millimeters of mercury on recent catheterization. Elevated left ventricular end diastolic pressure of 36 millimeters of mercury. Pulmonary wedge pressure 36 millimeters of mercury. Pulmonary artery pressure 70 [birth year]/1950 1 millimeters of mercury. Cardiac index 3.8 liters/minute per meter squared. 5. Reports of paroxysmal atrial fibrillation during hospitalization at [facility]. For this he was started on anticoagulation therapy with warfarin. 6. COPD and sleep apnea. Severe pulmonary hypertension as documented above. 7. History of hypertension, dyslipidemia, diabetes mellitus, cigarette smoking, and family history of premature coronary artery disease. History of chronic renal failure, sleep apnea, renal artery stenosis, renal artery stent, and prostate cancer. 8. Anemia. During his November [facility] admission received transfusion of blood. Discharge hemoglobin 9.0. 9. Chronic renal failure. Discharge creatinine 2.42. following his cardiac catheterization interventional procedure he required temporary hemodialysis. This was performed November 27-November 29. 10. Intubation and mechanical ventilation prior to undergoing cardiac catheterization at [facility]. The procedure was performed on November 27, 2016. 11. Physical debilitation following his [facility] admission. Improvement in physical status at a rehabilitation institution following discharge. Was able to go home. Steadily improving stamina and exercise tolerance since being home. 12. Severe anemia noted on this admission. Subsequent transfusion of blood given. No evidence of active GI bleeding. He does have black stools. However , he is on iron supplementation. His INR was markedly elevated on admission at 6.1. He is also on dual antiplatelet therapy with aspirin and clopidogrel. This triple antithrombotic therapy would certainly increased risk of GI bleeding. The patient states he underwent EGD and colonoscopy during his [facility] admission. He states that no bleeding source was documented. Patient' s with aortic stenosis have increased incidence of AV malformations in the colon. Suspect the patient is having bleeding from AV malformations in the small bowel or colon. 13. Prolonged episode of chest pain last evening.Resolution with supplemental oxygen given by EMS. No chest pain since then. Troponin I mildly elevated. Electrocardiogram without evidence of ST segment elevations. Lateral T inversions consistent with ischemia. Anteroseptal myocardial infarction. Suspect demand myocardial ischemia secondary to his aortic stenosis, LVH, and severe anemia. Additionally, based on his diastolic pressure and history of elevated left ventricular end diastolic pressure he would have a low coronary perfusion pressure. All of this is in the presence of underlying coronary artery disease. Do not suspect any acute issues with his stents or bypass grafts. 14. Severe COPD. He has diffuse expiratory wheezing on exam today. Decreased breath sounds in all lung jha. He is on chronic oxygen therapy. 15. Severe pulmonary hypertension. Secondary to COPD, sleep apnea, and left heart failure. Recommendations: 1. Would restart clopidogrel. This is in light of his coronary artery stents. If his hemoglobin remains stable on clopidogrel and there is no evidence of active GI bleeding would then restart aspirin. With his drug-eluting stents should be on dual antiplatelet therapy for minimum of 6 months. Ideally for 1 year. The patient is currently in sinus rhythm. His atrial fibrillation is paroxysmal. Suspect that he would be at increased risk for recurrent GI bleeding if triple antithrombotic therapy with aspirin, clopidogrel, and warfarin were reinstituted. At this time would recommend not restarting the warfarin. 2. Restart carvedilol. 3. The patient previously had been on afterload reduction therapy with an JUAN J- inhibitor. This was stopped during his recent [place] admission. 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 From a cardiac standpoint he would be beneficial for him to be on Juan J inhibitor or angiotensin receptor emily therapy. 4. Maximal atorvastatin dose for his dyslipidemia. This is indicated in light of his coronary artery disease. 5. Continue LifeVest. This was placed on the patient at [place]. 6. When he is discharged follow-up with his primary acid tank cleaner in [place]. 7. Obtain reports of echocardiogram, EGD, and colonoscopy performed at [facility] earlier this month. 8. Physical therapy consultation. The patient is at increased risk for debilitation with prolonged bed rest. 9. Resume diet.
[2016-12-16] MEDS ORDERED: NURSING DECISION MEDICATION ORDER SCH (21:00)
[2016-12-16] MEDS ORDERED: FUROSEMIDE INJ 40 MG in SYRINGE 0 ML IV SCH (21:00)
[2016-12-16] MEDS: ALBUT/IPRATROP 3MG/0.5MG NEB 3 ML VIAL INH PRN (21:42)
[2016-12-17] VITALS (8 sets, daily range): BP systolic 95–147; BP diastolic 57–76; PULSE 55–121; TEMP 36.6–37; O2SAT 91–97
[2016-12-17] MEDS: PANTOprazole INJ 40 MG in DEXTROSE 5% 100ML IV SCH ×3 (01:06→11:00)
[2016-12-17 01:17] LABS: HEMATOCRIT 27.5 % (42-52)
[2016-12-17 06:01] LABS: BASO % 0.4 %; BASO ABS # 0.05 K/uL (0-0.2); COMPLETE YES; EOS % 4.8 %; HEMATOCRIT 29.3 % (42-52); IG% 0.4 %; LYMPH % 14.2 %; LYMPH ABS # 1.58 K/uL (1.2-3.4); MEAN CELL VOLUME 89.3 fL (80-100); MEAN CORPUSCULAR HGB CONC 31.4 g/dl (32-36); MEAN PLATELET VOLUME 8.3 fL (7.4-10.4); MONO % 7.4 %; NEUT % 72.8 %; PLATELET COUNT 228 K/uL (130-400); RED BLOOD COUNT 3.28 M/uL (4.7-6.1); WHITE BLOOD COUNT 11.15 K/uL (4.8-10.8)
[2016-12-17] MEDS ORDERED: NURSING VERBAL MED ORDER ONE (06:15)
[2016-12-17] MEDS: ALBUT/IPRATROP 3MG/0.5MG NEB 3 ML VIAL INH PRN (06:17)
[2016-12-17 06:19] LABS: INR 1.3 (0.9-1.1); PARTIAL THROMBOPLASTIN RATIO 1.1; PROTHROMBIN TIME (PATIENT) 13.6 SECONDS (9.0-12.0)
[2016-12-17] MEDS ORDERED: FUROSEMIDE 40 MG/4 ML VIAL IV SCH (06:30)
[2016-12-17 06:38] LABS: BUN/CREATININE RATIO 23.8 (10-20); CALCIUM 8.3 mg/dl (8.5-10.1); CREATININE 2.2 mg/dl (0.60-1.40); MAGNESIUM 2.2 mg/dl (1.8-2.4); POTASSIUM 4.4 mmol/L (3.5-5.1)
--- NOTE | 2016-12-17 06:39 | Clinical Documentation Query ---
CLINICAL DOCUMENTATION QUERY Query #1/3 81 year old male who presents to the Emergency Room via EMS with complaints of mid-sternal chest pain and significant anemia with supratheraputic INR. In your clinical opinion is this patient being managed for: ( X ) Warfarin therapy related GI bleed treated with Vitamin K and PRBCs. ( ) Other explanation of clinical findings (Please Explain) ( ) Unable to determine (Please Define) ( ) Need to Discuss ( ) Not Agree The medical record reflects the following clinical findings, treatment, and risk factors. Clinical Indicators: As above. Hgb 7.1, Hct 23.0, INR 6.1. Reports of dark stools per patient. Treatment: 3 units of PRBC's, IV Vitamin K, Procrit, GI consult, Warfarin on hold, Risk Factors: Age, Warfarin therapy, Plavix therapy, stress of recent [place]. Query #2/3 Progress note 12/16/16 comments that this patient has + decreased breath sounds, + rales, + wheezing on lung exam. In your clinical opinion is this patient being managed for: ( ) Acute on chronic systolic (reduced EF) heart failure treated with PO and IV Lasix ( ) Other explanation of clinical findings (Please Explain) ( ) Unable to determine (Please Define) ( ) Need to Discuss ( ) Not Agree The medical record reflects the following clinical findings, treatment, and risk factors. Clinical Indicators: As above. Treatment: IV and PO Lasix, Cardiology consult, telemetry, I/O's, daily weights Risk Factors: Age, chronic systolic CHF, multiple blood transfusions. Query #3/3 In your clinical opinion is this patient being managed for: ( ) Chronic respiratory failure treated with continued O2 therapy and Nebs. ( ) Other explanation of clinical findings (Please Explain) ( ) Unable to determine (Please Define) ( ) Need to Discuss ( ) Not Agree The medical record reflects the following clinical findings, treatment, and risk factors. Clinical Indicators: RA hypoxia 88%, use of home O2 at 3L ATC. Treatment: O2, Nebs, Risk Factors: Age, COPD, CHF Please clarify and document your clinical opinion in the progress notes and discharge summary. Terms such as "probable", "suspected", "likely", "questionable", "possible", or "still to be ruled out" are acceptable. IF IN AGREEMENT, YOU MUST DOCUMENT ABOVE DIAGNOSTIC STATEMENT IN DAILY PROGRESS NOTES AND DISCHARGE SUMMARY. This document is not part of the patient's record. Thank You, Ferdinand Britt, RN [phone]
[2016-12-17] MEDS: INSULIN ASPART 100 UNITS/ML 3 ML PEN SC SCH ×2 (08:16→11:36)
[2016-12-17] MEDS: CARVEDILOL 6.25 MG TAB PO SCH (08:17)
[2016-12-17] MEDS: FUROSEMIDE 40 MG TAB PO SCH (08:18)
[2016-12-17] MEDS ORDERED: CLOPIDOGREL BISULFATE 75 MG TAB PO SCH ×2 (09:00)
[2016-12-17] MEDS ORDERED: ATORVASTATIN 40 MG TAB PO SCH (09:00)
[2016-12-17] MEDS ORDERED: IRON SUCROSE INJ 200 MG in SODIUM CHLORIDE 0.9% 100ML 100 ML IV SCH (10:00)
--- NOTE | 2016-12-17 11:16 | Discharge Instructions ---
Discharge Instructions Date of Service Dec 17, 2016. Admission Reason for Admission: Symptomatic Anemia Discharge Discharge Diagnosis / Problem: Anemia Discharge Goals Goal(s): Decrease discomfort, Increase independence, Improve disease control Activity Recommendations Activity Limitations: resume your previous activity . Instructions / Follow-Up Instructions / Follow-Up Follow up with your family physician within one week You will hold warfarin for now since you had severe anemia and your INR was high at 6. Please follow up with family doctor and heart doctor to decide on resuming warfarin. Continue taking rest of your medication as instructed. No sign of active bleeding was noted during hospitalization. You were evaluated by spooler operator automatic Dr. Florez who recommended to hold warfarin. [place] Mechanic Dr. Painter also saw you. Your blood counts stayed stable after transfusing 3 units of packed red cells and so no procedures were done to look for any source of bleeding. You did also receive IV iron infusion as ordered by repair table operator Dr. Dodd. Current Hospital Diet Patient's current hospital diet: AHA Diet (Heart Healthy), Diabetes Type 2 Diet Discharge Diet Recommended Diet: Regular Diet Pending Studies Studies pending at discharge: no Medical Emergencies . Who to Call and When: Medical Emergencies: If at any time you feel your situation is an emergency, please call 911 immediately. . Non-Emergent Contact Non-Emergency issues call your: Primary Care Provider . . "Provider Documentation" section prepared by Anjel Griffiths. . VTE Core Measure Inpt VTE Proph given/why not?: SCD's
--- NOTE | 2016-12-17 11:44 | Nephrology Progress Note ---
Nephrology Progress Note Date of Service Dec 17, 2016. Chief Complaint Evaluation management for chronic kidney disease and anemia. Subjective Jonnie was seen and examined in his room this am. Had SOB last night, now improved. Denies CP. UO decent, net slightly negative. Cr stable. BP acceptable. Review of Systems A complete review of systems was performed. Pertinent positives are noted above. All other systems are negative. Vital Signs Last 8 Hrs Date Time Temp Pulse Resp B/P (MAP) Pulse Ox O2 Delivery O2 Flow Rate FiO2 12/17/16 08:03 36.9 76 16 147/76 (99) 97 12/17/16 08:00 Room Air 12/17/16 06:17 65 24 91 Nasal Cannula 6.0 12/17/16 04:00 93 Nasal Cannula 2.0 12/17/16 03:53 36.6 79 19 113/59 (77) 94 Nasal Cannula 4.0 Last Recorded Weight Weight (Kilograms): 97.000 Physical Exam GENERAL: elderly male, AAA x 3, pleasant, healthy-appearing, not in any distress. NECK: Supple, no JVD. RESPIRATORY: Normal breathing efforts, no accessory muscle use, rales bilaterally. CARDIOVASCULAR: S1, S2 normal, rate rhythm regular. EXTREMITY: trace bilateral lower extremity edema NEURO: speech fluent. PSYCHIATRY: Normal mood and judgment Family History Patient reports no known family medical history. Social History Smokeless Tobacco Use: No Drug Use: none Marital Status: Housing Status: lives with family Occupation: retired Laboratory Results Past 24 Hours 12/16/16 18:31 12/17/16 01:05 12/17/16 05:45 Red Blood Count 3.28, Mean Corpuscular Volume 89.3, Mean Corpuscular Hemoglobin 28.0, Mean Corpuscular Hemoglobin Concent 31.4, Mean Platelet Volume 8.3, Neutrophils (%) (Auto) 72.8, Lymphocytes (%) (Auto) 14.2, Monocytes (%) (Auto) 7.4, Eosinophils (%) (Auto) 4.8, Basophils (%) (Auto) 0.4, Neutrophils # (Auto) 8.12, Lymphocytes # (Auto) 1.58, Monocytes # (Auto) 0.82, Eosinophils # (Auto) 0.54, Basophils # (Auto) 0.05 12/17/16 05:45 Test 12/16/16 11:44 12/16/16 16:10 12/16/16 16:15 12/16/16 20:36 Bedside Glucose 229 mg/dl (70-99) 189 mg/dl (70-99) 169 mg/dl (70-99) Total Creatine Kinase 34 U/L (39-308) Creatine Kinase MB 1.3 ng/ml (0.5-3.6) Creatine Kinase MB Ratio 3.8 (0-3.0) Troponin I 0.172 ng/ml (0-0.045) Test 12/17/16 05:45 12/17/16 06:51 12/17/16 11:20 White Blood Count 11.15 K/uL (4.8-10.8) Red Blood Count 3.28 M/uL (4.7-6.1) Hemoglobin 9.2 g/dL (14.0-18.0) Hematocrit 29.3 % (42-52) Mean Corpuscular Volume 89.3 fL (80-100) Mean Corpuscular Hemoglobin 28.0 pg (25-34) Mean Corpuscular Hemoglobin Concent 31.4 g/dl (32-36) Platelet Count 228 K/uL (130-400) Mean Platelet Volume 8.3 fL (7.4-10.4) Neutrophils (%) (Auto) 72.8 % Lymphocytes (%) (Auto) 14.2 % Monocytes (%) (Auto) 7.4 % Eosinophils (%) (Auto) 4.8 % Basophils (%) (Auto) 0.4 % Neutrophils # (Auto) 8.12 K/uL (1.4-6.5) Lymphocytes # (Auto) 1.58 K/uL (1.2-3.4) Monocytes # (Auto) 0.82 K/uL (0.11-0.59) Eosinophils # (Auto) 0.54 K/uL (0-0.5) Basophils # (Auto) 0.05 K/uL (0-0.2) RDW Standard Deviation 55.9 fL (36.4-46.3) RDW Coefficient of Variation 17.3 % (11.5-14.5) Immature Granulocyte % (Auto) 0.4 % Immature Granulocyte # (Auto) 0.04 K/uL (0.00-0.02) Prothrombin Time 13.6 SECONDS (9.0-12.0) Prothromb Time International Ratio 1.3 (0.9-1.1) Activated Partial Thromboplast Time 27.9 SECONDS (21.0-31.0) Partial Thromboplastin Ratio 1.1 Anion Gap 8.0 mmol/L (3-11) Est Creatinine Clear Calc Drug Dose 30.2 ml/min Estimated GFR () 31.8 Estimated GFR (Non- 27.5 BUN/Creatinine Ratio 23.8 (10-20) Calcium Level 8.3 mg/dl (8.5-10.1) Magnesium Level 2.2 mg/dl (1.8-2.4) Total Bilirubin 0.7 mg/dl (0.2-1) Direct Bilirubin 0.2 mg/dl (0-0.2) Aspartate Amino Transf (AST/SGOT) 14 U/L (15-37) Alanine Aminotransferase (ALT/SGPT) 23 U/L (12-78) Alkaline Phosphatase 66 U/L (45-117) Total Protein 6.5 gm/dl (6.4-8.2) Albumin 3.0 gm/dl (3.4-5.0) Bedside Glucose 165 mg/dl (70-99) 268 mg/dl (70-99) Allergies Coded Allergies: Iodine (Verified Allergy, Intermediate, "I GET HOT.", 01/14/15) Medications Current Inpatient Medications Medications (Trade) Dose Ordered Sig/Rick Route Start Time Stop Time Status Last Admin Dose Admin Insulin Detemir (Levemir Flexpen/ FlexTouch) 10 unit HS SC 12/16/16 01:15 01/15/17 01:14 12/16/16 21:22 10 UNIT Albuterol/ Ipratropium (Duoneb) 3 ml QID PRN INH 12/16/16 00:00 01/15/17 00:00 12/17/16 06:17 3 ML Ondansetron HCl (Zofran Inj) 4 mg Q6H PRN IV 12/16/16 00:00 01/15/17 00:00 Insulin Aspart (novoLOG ASPART) SLIDING SCALE If C... ACHS SC 12/16/16 07:00 01/15/17 06:59 12/17/16 08:16 8 UNITS Glucose (Glucose 40% Gel) UD PRN PO 12/16/16 00:00 01/15/17 00:00 Glucose (Glucose Chew Tab) 1 tabs UD PRN PO 12/16/16 00:00 01/15/17 00:00 Dextrose (Dextrose 50% 50ML Syringe) 50 ml UD PRN IV 12/16/16 00:00 01/15/17 00:00 Glucagon (Glucagon Inj) 1 mg UD PRN SQ 12/16/16 00:00 01/15/17 00:00 Acetaminophen 100 ml @ 400 mls/hr Q8H PRN IV 12/16/16 00:00 01/15/17 00:00 Pantoprazole Sodium 40 mg/ Dextrose 100 ml @ 20 mls/hr Q5H IV 12/16/16 01:15 01/15/17 01:14 12/17/16 11:00 20 MLS/HR Carvedilol (Coreg Tab) 6.25 mg BID PO 12/16/16 21:00 01/15/17 20:59 12/17/16 08:17 6.25 MG Atorvastatin Calcium (Lipitor Tab) 80 mg QAM PO 12/17/16 09:00 01/16/17 08:59 12/17/16 08:17 80 MG Clopidogrel Bisulfate (plAVix TAB) 75 mg QAM PO 12/17/16 09:00 01/16/17 08:59 12/17/16 08:16 75 MG Furosemide (Lasix Tab) 40 mg BID17 PO 12/16/16 21:00 01/15/17 20:59 12/17/16 08:18 40 MG Iron Sucrose 200 mg/Sodium Chloride 110 ml @ 420 mls/hr Q48H IV 12/17/16 10:00 12/25/16 10:16 12/17/16 10:21 420 MLS/HR Impression (1) Chronic renal disease, stage IV (2) Anemia (3) Elevated INR (4) CHF (congestive heart failure) (5) Hypertension Jonnie Is a 81-year-old gentlemen with them history of stage 4 chronic kidney disease, hypertension, coronary artery disease, congestive heart failure with systolic dysfunction admitted to the hospital with chest pain. Was recently found to have anemia with GI bleeding requiring blood transfusion. On admission hemoglobin was 7.1, received 2 units of blood transfusion and hemoglobin improved to 8.5. His INR was elevated at 6, Coumadin on hold and received vitamin K. troponin was just mildly elevated probably secondary to demand ischemia in the setting of anemia. chest pain currently totally resolved and patient is otherwise feeling fine as hemoglobin improved to 8.5 Has stage 4 chronic kidney disease, baseline creatinine seems to be some at 2.2- 2.3, unclear etiology but could be secondary to have microvascular disease or cardiorenal syndrome type 2. he follows with elevator serviceman in [place]. His renal functions currently at baseline, 2.1 and estimated GFR 29. Recommendations --start on lisinopril 10 mg /d --continue Lasix 40 milligram twice a day, aim for slight net negative, if needed increase lasix to 60 mg BID --Avoid nephrotoxins medications, avoid IV fluid --start on venofer --monitor renal function with daily renal panel however, patient's renal function seems to be at his baseline --received Epogen [id number] on 12/16/16 will follow.
--- NOTE | 2016-12-17 11:57 | Cardiology Progress Note ---
Cardiology Progress Note Date of Service Dec 17, 2016. Cardiology Progress Note Cardiology progress note December 17, 2016 the patient was seen by me this morning in his telemetry unit room. Overnight he had dyspnea. It was felt that he had had acute systolic congestive heart failure. Was treated with intravenous diuretics. Since then he has had a good diuresis. He currently denies any dyspnea. He has had no further episodes of chest pain since admission. He denies any palpitations, lightheadedness, or syncope. Good appetite. No abdominal pain or nausea. No leg pain. No cerebrovascular or peripheral vascular complaints. No fevers or chills. He has had no bowel movement since admission. Current medications; iron sucrose 200 milligrams IV Q 48 hours, atorvastatin 80 milligrams daily, clopidogrel 75 milligrams daily, carvedilol 6.25 milligrams b.i.d., furosemide 40 milligrams p.o. b.i.d., insulin, pantoprazole 40 milligrams IV q.5 hours, DuoNeb q.i.d. p.r.n.. Several p.r.n. medications. Allergies adverse drug reactions: No definite or significant adverse reactions or allergies. History of feeling hot when receiving intravenous contrast. Family history: His father of an NC at age 57. Social history: The patient is lives with his . Stopped smoking cigarettes 1999. He smoked up to 3 packs a day. Monitor history over the past 24 hours with episode sinus arrhythmia and sinus bradycardia yesterday afternoon. Rates in the upper 20s. This was transient lasting only a few seconds. Brief episode of atrial tachycardia versus atrial fibrillation overnight. This also lasted only a few seconds. Currently monitor reveals sinus rhythm. Physical exam: General appearance normal. No distress. Oral temperature this morning 36.9. Pulse 76. Blood pressure 147/76. Pulse oximetry 97 percent on supplemental nasal cannula oxygen. Head: Normal. Eyes: Pupils equal and round. Anicteric. Conjunctiva normal. No xanthelasma. Neck: No jugular venous distention. Carotids 1/2 bilaterally. Delayed upstroke. Transmitted murmur bilaterally. Lungs: Normal respiratory effort. Decreased breath sounds at the bases. Bibasilar rales. Heart: PMI not palpable. Lifts or heaves. Regular rate and rhythm. Diminished aortic valvular closing sound. 2/6 crescendo decrescendo murmur 2nd right intercostal space. 2/6 systolic murmur left lower sternal border and apex. No Diastolic murmur, rub, or gallop heard. Extremities: No cyanosis or clubbing. Trace pretibial edema bilaterally. No calf tenderness. Neurologic: Alert and oriented x3. Motor grossly intact. Psychiatric: Affect is normal. -Data today with electrocardiogram showing sinus rhythm with premature atrial beat, anterior septal NC, T-wave inversions in lead 1 and aVL. Labs with hemoglobin 9.2, hematocrit 29.3, platelet count 228. INR 1.3. Metabolic profile was sodium 143, potassium 4.4, chloride 107, carbon dioxide 28, BUN 52, creatinine 2.2, random glucose 141. Magnesium 2.2. Albumin 3.0. Peak troponin I was 0.184. Colonoscopy report from [place] from October 01, 2016 with internal hemorrhoids, diverticula, descending colonic polyps. Assessment: 1. Severe anemia on admission. Probable acute GI bleed. His INR was markedly elevated. With transfusion of packed red blood cells his hemoglobin has increased. No current signs or symptoms of GI bleeding. He is currently on clopidogrel. Warfarin and aspirin are being held. 2. Development of acute systolic congestive heart failure overnight. Received large volumes yesterday for blood transfusions. at the time of admission he was on maintenance diuretics. Currently on exam evidence of mild residual heart failure. He has bibasilar rales. His oxygen saturation is good. He complains of no dyspnea at this time. 3. Severe left ventricular systolic dysfunction. 4. Severe aortic stenosis. 5. Coronary artery disease. Status post CABG surgery. Status post recent left main and left circumflex coronary artery stents. Bypass grafts were patent. 6. Chronic kidney disease. 7. COPD. No wheezing on exam today. He had diffuse expiratory wheezing on exam yesterday. 8. Elevated troponin I on this admission. Suspect secondary to demand ischemia. Do not suspect acute graft or stent closure. The troponin elevation only mild. 9. Probable sick sinus syndrome. History of paroxysmal atrial fibrillation. Recommendations: 1. Consider restarting FAVIOLA inhibitor. This would be with the consent of Nephrology consult. 2. Continue carvedilol at current dose. 3. Continue oral diuretic. 4. If his hemoglobin remains stable and no evidence of GI bleeding restart aspirin. 5. Would be hesitant to restart warfarin. 6. Increase activity. 7. When he is discharged, follow-up with his primary feather separator in [place].
--- NOTE | 2016-12-17 12:25 | Gastroenterology Progress Note ---
Progress Note Date of Service: Dec 17, 2016 Subjective Pt evaluation today including: conversation w/ patient, physical exam, chart review, lab review Doing well today. Denies any hematemesis, melena or hematochezia. States he is not having any abdominal pain. No BM in the past 24 hours. Tolerating PO intake. Review of Systems Constitutional: No fever, No chills ENT: No sore throat Respiratory: + dyspnea on exertion, No cough, No sputum, No shortness of breath Cardiac: No chest pain, No palpitations Abdomen: No nausea, No vomiting, No diarrhea, No constipation, No dysphagia, No odynophagia Male : No dysuria, No hematuria Medications Current Inpatient Medications Medications (Trade) Dose Ordered Sig/Rick Route Start Time Stop Time Status Last Admin Dose Admin Insulin Detemir (Levemir Flexpen/ FlexTouch) 10 unit HS SC 12/16/16 01:15 01/15/17 01:14 12/16/16 21:22 10 UNIT Albuterol/ Ipratropium (Duoneb) 3 ml QID PRN INH 12/16/16 00:00 01/15/17 00:00 12/17/16 06:17 3 ML Ondansetron HCl (Zofran Inj) 4 mg Q6H PRN IV 12/16/16 00:00 01/15/17 00:00 Insulin Aspart (novoLOG ASPART) SLIDING SCALE If C... ACHS SC 12/16/16 07:00 01/15/17 06:59 12/17/16 11:36 8 UNITS Glucose (Glucose 40% Gel) UD PRN PO 12/16/16 00:00 01/15/17 00:00 Glucose (Glucose Chew Tab) 1 tabs UD PRN PO 12/16/16 00:00 01/15/17 00:00 Dextrose (Dextrose 50% 50ML Syringe) 50 ml UD PRN IV 12/16/16 00:00 01/15/17 00:00 Glucagon (Glucagon Inj) 1 mg UD PRN SQ 12/16/16 00:00 01/15/17 00:00 Acetaminophen 100 ml @ 400 mls/hr Q8H PRN IV 12/16/16 00:00 01/15/17 00:00 Pantoprazole Sodium 40 mg/ Dextrose 100 ml @ 20 mls/hr Q5H IV 12/16/16 01:15 01/15/17 01:14 12/17/16 11:00 20 MLS/HR Carvedilol (Coreg Tab) 6.25 mg BID PO 12/16/16 21:00 01/15/17 20:59 12/17/16 08:17 6.25 MG Atorvastatin Calcium (Lipitor Tab) 80 mg QAM PO 12/17/16 09:00 01/16/17 08:59 12/17/16 08:17 80 MG Clopidogrel Bisulfate (plAVix TAB) 75 mg QAM PO 12/17/16 09:00 01/16/17 08:59 12/17/16 08:16 75 MG Furosemide (Lasix Tab) 40 mg BID17 PO 12/16/16 21:00 01/15/17 20:59 12/17/16 08:18 40 MG Iron Sucrose 200 mg/Sodium Chloride 110 ml @ 420 mls/hr Q48H IV 12/17/16 10:00 12/25/16 10:16 12/17/16 10:21 420 MLS/HR Lisinopril (Zestril Tab) 10 mg QAM PO 12/17/16 12:30 01/16/17 12:29 Objective Vital Signs Date Time Temp Pulse Resp B/P (MAP) Pulse Ox O2 Delivery O2 Flow Rate FiO2 12/17/16 12:14 37.0 121 18 132/74 (93) 97 12/17/16 12:00 Room Air 12/17/16 08:03 36.9 76 16 147/76 (99) 97 12/17/16 08:00 Room Air 12/17/16 06:17 65 24 91 Nasal Cannula 6.0 12/17/16 04:00 93 Nasal Cannula 2.0 12/17/16 03:53 36.6 79 19 113/59 (77) 94 Nasal Cannula 4.0 12/16/16 23:59 93 Nasal Cannula 2.0 12/16/16 23:56 36.4 62 20 152/68 (96) 94 Nasal Cannula 4.0 12/16/16 23:05 36.4 62 20 152/68 94 4.0 12/16/16 22:15 36.3 64 22 111/66 93 5.0 12/16/16 21:43 77 22 92 Nasal Cannula 5.0 12/16/16 21:15 36.9 71 22 140/60 93 6.0 12/16/16 20:45 36.9 83 30 141/75 83 2.0 12/16/16 20:00 36.9 82 18 98/59 93 2.0 12/16/16 20:00 93 Nasal Cannula 2.0 12/16/16 19:55 36.9 69 20 119/62 (81) 97 Nasal Cannula 3.0 12/16/16 19:46 36.9 78 18 119/82 97 2.0 12/16/16 16:03 36.5 61 22 121/61 (81) 96 Nasal Cannula 3.0 12/16/16 16:00 Room Air Physical Exam General Appearance: + pertinent finding (Chronic ill appearing, NAD) Eyes: PERRL, EOMI Neck: supple, no adenopathy Respiratory/Chest: + decreased breath sounds (at bilateral bases) Cardiovascular: regular rate, rhythm Abdomen: normal bowel sounds, non tender, soft Laboratory Results Last 24 Hours Test 12/16/16 16:10 12/16/16 16:15 12/16/16 18:31 12/16/16 20:36 Total Creatine Kinase 34 U/L Creatine Kinase MB 1.3 ng/ml Creatine Kinase MB Ratio 3.8 Troponin I 0.172 ng/ml Bedside Glucose 189 mg/dl 169 mg/dl Hemoglobin 8.5 g/dL Hematocrit 28.0 % Test 12/17/16 01:05 12/17/16 05:45 12/17/16 06:51 12/17/16 11:20 Hemoglobin 8.9 g/dL 9.2 g/dL Hematocrit 27.5 % 29.3 % White Blood Count 11.15 K/uL Red Blood Count 3.28 M/uL Mean Corpuscular Volume 89.3 fL Mean Corpuscular Hemoglobin 28.0 pg Mean Corpuscular Hemoglobin Concent 31.4 g/dl Platelet Count 228 K/uL Mean Platelet Volume 8.3 fL Neutrophils (%) (Auto) 72.8 % Lymphocytes (%) (Auto) 14.2 % Monocytes (%) (Auto) 7.4 % Eosinophils (%) (Auto) 4.8 % Basophils (%) (Auto) 0.4 % Neutrophils # (Auto) 8.12 K/uL Lymphocytes # (Auto) 1.58 K/uL Monocytes # (Auto) 0.82 K/uL Eosinophils # (Auto) 0.54 K/uL Basophils # (Auto) 0.05 K/uL RDW Standard Deviation 55.9 fL RDW Coefficient of Variation 17.3 % Immature Granulocyte % (Auto) 0.4 % Immature Granulocyte # (Auto) 0.04 K/uL Prothrombin Time 13.6 SECONDS Prothromb Time International Ratio 1.3 Activated Partial Thromboplast Time 27.9 SECONDS Partial Thromboplastin Ratio 1.1 Sodium Level 143 mmol/L Potassium Level 4.4 mmol/L Chloride Level 107 mmol/L Carbon Dioxide Level 28 mmol/L Anion Gap 8.0 mmol/L Blood Urea Nitrogen 52 mg/dl Creatinine 2.20 mg/dl Est Creatinine Clear Calc Drug Dose 30.2 ml/min Estimated GFR () 31.8 Estimated GFR (Non- 27.5 BUN/Creatinine Ratio 23.8 Random Glucose 141 mg/dl Calcium Level 8.3 mg/dl Magnesium Level 2.2 mg/dl Total Bilirubin 0.7 mg/dl Direct Bilirubin 0.2 mg/dl Aspartate Amino Transf (AST/SGOT) 14 U/L Alanine Aminotransferase (ALT/SGPT) 23 U/L Alkaline Phosphatase 66 U/L Total Protein 6.5 gm/dl Albumin 3.0 gm/dl Bedside Glucose 165 mg/dl 268 mg/dl Test 12/17/16 12:00 Assessment and Plan Assessment: 81 yo CM with recent Cardiac cath with stents x2 and A-Fib on ASA, Plavix and Supratherapeutic INR on admission with anemia without overt GI bleeding. Plan: No records of EGD/Colonoscopy from recent hospitalization. Review of old records from [facility] did show acute drop in Hgb, however, no evidence of GI bleeding at that time. Off Coumadin now as per Cardiology Will not perform EGD/Colonoscopy unless patient has overt GI bleeding. Agree with continuation of Plavix as per cardiology secondary to recent stents Will follow clinical course and make further recommendations as needed.
[2016-12-17] MEDS ORDERED: LISINOPRIL 10 MG TAB PO SCH (12:30)
[2016-12-17 12:33] LABS: HEMATOCRIT 28.2 % (42-52)
[2016-12-17] MEDS ORDERED: OXGN (17:05)
--- NOTE | 2016-12-17 18:00 | Discharge Summary ---
Discharge Summary Date of Service Dec 17, 2016. (Anjel Griffiths MD) Discharge Summary Admission Date: Dec 15, 2016 at 23:27 Discharge Date: Dec 17, 2016 Discharge Disposition: Home Principal Diagnosis: Anemia (Anjel Griffiths MD) Medication Reconciliation New Medications: Home O2 Therapy (Oxygen) Gas 2 LITERS NA PRN for 30 Days, BTL Continued Medications: Acetaminophen Tab (Tylenol) 325 Mg Tab 650 MG PO Q6H PRN for Pain or Fever, TAB Aspirin (Aspirin Ec) 81 Mg Tab 81 MG PO QAM Atorvastatin (Lipitor) 10 Mg Tab 10 MG PO QPM, TAB Bicalutamide (Casodex) 50 Mg Tab 50 MG PO QAM, TAB Carvedilol (Coreg) 6.25 Mg Tab 6.25 MG PO BID, TAB Clopidogrel (Plavix) 75 Mg Tab 75 MG PO QAM, TAB Ferrous Sulfate (Ferrous Sulfate) 325 Mg Tab 325 MG PO BID Furosemide (Lasix) 40 Mg Tab 40 MG PO BID, TAB Insulin Aspart (Novolog Flexpen) 100 Units/Ml Inj 10 UNITS SC TIDM Insulin Detemir (Levemir Flextouch) 100 Unit/Ml Inj 50 UNITS SC HS Ipratropium-Albuterol (Duoneb) 3 Ml Nebu 1 TREATMENT INH QID PRN for SOB/Wheezing, INHA Multivitamin (Multivitamin) Tab 1 TAB PO QAM, TAB Discontinued Medications: Warfarin Sodium (Coumadin) 6 Mg Tab 6 MG PO QPM, TAB TAKE 6 MG EVERY DAY OR OTHERWISE DIRECTED TO TAKE BY ANTICOAGULATION CLINIC/MD Discharge Exam Review of Systems: Constitutional: No fever, No chills Respiratory: + cough, No sputum, No wheezing, No shortness of breath Cardiovascular: No chest pain, No edema Abdomen: No pain, No nausea, No vomiting, No diarrhea, No constipation, No GI bleeding Musculoskeletal: No muscle pain Genitourinary - Male: No dysuria Integumentary: No rash Physical Exam: General Appearance: WD/WN, no apparent distress Neck: supple, trachea midline Respiratory/Chest: chest non-tender, no respiratory distress, no accessory muscle use, + decreased breath sounds Cardiovascular: regular rate, rhythm, no edema Abdomen / GI: normal bowel sounds, non tender, soft Neurologic/Psychiatric: alert, normal mood/affect Skin: normal color, warm/dry, no rash (Anjel Griffiths MD) breathing well since morning no chest pain Review of Systems: Constitutional: No fever Respiratory: No shortness of breath Cardiovascular: No chest pain Abdomen: No pain Physical Exam: General Appearance: no apparent distress Respiratory/Chest: lungs clear, no respiratory distress Cardiovascular: regular rate, rhythm, + pertinent finding (life vest on) Neurologic/Psychiatric: alert, oriented x 3 Skin: warm/dry (Kortney Epperson M.D.) Hospital Course This is a 81-year-old male who presents to the hospital with complaint of midsternal chest pain, shortness of breath and nausea that began about 2 hours prior to arrival. Patient reading reading newspaper when he felt the pain. He usually wears 3 L of nasal cannula oxygen at home. Upon arrival in the ED his oxygen saturation was low, but improved with 3L NC. He was most recently admitted to [facility] from November 26- for acute respiratory failure secondary to acute CHF, was admitted to the ICU where he was intubated to facilitate cardiac catheterization. He received 2 stents ( left main and circumflex). His EF is 15-20% and was discharged on a Lifevest. Just prior to discharge, he did have a GI bleed of unknown source, and received 1 unit of PRBC, which return his hemoglobin to 9.4. It was thought that his drop in hemoglobin may been related to anemia of chronic disease and had been somewhat dilutional. He was also found to have chronic renal insufficiency with a creatinine baseline of 2.2-2.3. He was started on Coumadin for paroxysmal atrial fibrillation, his INR was 1.7 at time of discharge. In ED his INR was 6.1 and Hgb was 7.1. Warfarin, ASA and plavix were hold. He was admitted to the Tele for further workup. Patient was started on Protonix drip. Given total 3 PRBC over the course of his hospital stay. Also given vitamin K which improved his INR to 2.1. Patient's H& H monitored q6h. Cardiology, Nephrology and GI was consulted. Patient was also given Epogen [id number] per Nephrology. Patient stated that he had colonoscopy and EGD done recently in [facility]. However no record was found. GI recommended to continue with current treatment. Given that patient has no overt GI bleeding , colonoscopy and EGD is deferred for now. Cardiology recommended to resume Plavix and continue to hold Warfarin. Nephrology recommended to resume Lasix, avoid nephrotoxic drugs and IVF. Patient was observed 2 nights and there was no acute events on Tele. His H&H was stable. His SOB improved. Step 2 was performed prior to discharge. Patient was sent home on oxygen. All of his medications were resumed except Warfarin. Patient was instructed to follow with Clinical Quality Assurance Specialist and PCP in [place] after discharge. Total Time Spent: Less than 30 minutes This includes examination of the patient, discharge planning, medication reconciliation, and communication with other providers. (Anjel Griffiths MD) Resident Physician Supervision Note: I was present with Dr. Joseph in bedside. I verified the cates history and physical, reviewed labs and image studies, discussed the case with the resident and agree with the findings and care plan. Total Time Spent: Greater than 30 minutes (40) (Kortney Epperson M.D.) Discharge Instructions Please refer to the electronic Patient Visit Report (Discharge Instructions) for additional information. (Anjel Griffiths MD) Additional Copies To Pato Llamas M.D.; Franklyn Verdin M.D.
== END 2016-12-17 19:02 | disposition home health service (06) | DRG 811 ==
LOC: EDBD 20:34 → C.EDA 20:35 → C.2T 23:27 → ENRESERV 23:32
PROVIDERS: ADMIT Hospitalist; ATTEND Family Medicine
DX: D64.9 Anemia, unspecified (principal); I50.23 Acute on chronic systolic (congestive) heart failure; K92.2 Gastrointestinal hemorrhage, unspecified; N18.4 Chronic kidney disease, stage 4 (severe); I50.22 Chronic systolic (congestive) heart failure; I13.0 Hypertensive heart and chronic kidney disease with heart failure and stage 1 through stage 4 chronic kidney disease, or unspecified chronic kidney disease; R79.1 Abnormal coagulation profile; J44.9 Chronic obstructive pulmonary disease, unspecified; I25.10 Atherosclerotic heart disease of native coronary artery without angina pectoris; I48.0 Paroxysmal atrial fibrillation; E11.9 Type 2 diabetes mellitus without complications; Z87.891 Personal history of nicotine dependence; Z95.5 Presence of coronary angioplasty implant and graft; Z79.02 Long term (current) use of antithrombotics/antiplatelets; Z79.82 Long term (current) use of aspirin; Z79.4 Long term (current) use of insulin; Z79.01 Long term (current) use of anticoagulants; C61 Malignant neoplasm of prostate; E78.5 Hyperlipidemia, unspecified; I25.2 Old myocardial infarction

== ENCOUNTER 2018-09-07 17:07 | Inpatient (IN) ==
[2018-09-07] MEDS ORDERED: LEVOFLOXACIN/D5W 750 MG/150 ML BAG IV STA (17:47)
[2018-09-07] MEDS ORDERED: methylPREDNISolone 125 MG/2 ML VIAL IV STA (17:48)
[2018-09-07] MEDS ORDERED: ALBUTEROL 0.083% NEBU SOLN 3 ML VIAL NEB STA (17:48)
[2018-09-07] MEDS ORDERED: SODIUM CHLORIDE 0.9% 500 ML IV SCH (18:00)
[2018-09-07 18:19] LABS: Basophils # (auto) 0.05 K/uL (0-0.2); Basophils % (auto) 0.5 %; Eosinophils # (auto) 0.68 K/uL (0-0.5); Eosinophils % (auto) 7.4 %; Hematocrit (blood only) 34.2 % (42-52); Hemoglobin 10.9 g/dL (14.0-18.0); Immature Granulocytes # (auto) 0.06 K/uL (0.00-0.02); Immature Granulocytes % (auto) 0.7 %; Lymphocytes # (auto) 2.17 K/uL (1.2-3.4); Lymphocytes % (auto) 23.7 %; Mean Corpuscular Hgb Conc 31.9 g/dL (32-36); Mean Corpuscular Volume 91.9 fL (80-100); Mean Platelet Volume 8.7 fL (7.4-10.4); Monocytes # (auto) 0.85 K/uL (0.11-0.59); Monocytes % (auto) 9.3 %; Neutrophils # (auto) 5.33 K/uL (1.4-6.5); Neutrophils % (auto) 58.4 %; Nucleated RBC # (auto) 0.02 K/uL (0-0); Nucleated RBC % (auto) 0.2 %; Platelet Count 170 K/uL (130-400); RDW Coefficient of Variation 15.3 % (11.5-14.5); RDW Standard Deviation 51.5 fL (36.4-46.3); Red Blood Count 3.72 M/uL (4.7-6.1); White Blood Count 9.14 K/uL (4.8-10.8)
--- NOTE | 2018-09-07 18:26 | XRay Report ---
XR chest 1V portable CLINICAL HISTORY: Dyspnea COMPARISON STUDY: Chest radiograph December 15, 2016. FINDINGS: There are median sternotomy wires and mediastinal surgical clips. Mild cardiomegaly is note d. Calcified right midlung nodule is noted. There is no pneumothorax or pleural effusion. There is no evidence for pulmonary edema. Mild right lower lung opacity favors atelectasis. IMPRESSION: 1. Mild cardiomegaly. No evidence for pulmonary edema. 2. Mild right lower lung opacity which favors atelectasis. Electronically signed by: Zach Allred M.D. 09/07/2018 6:25 PM
[2018-09-07 18:30] LABS: Alanine Aminotransferase 21 U/L (12-78); Albumin Level 3.5 gm/dl (3.4-5.0); Aspartate Aminotransferase 24 U/L (15-37); BUN Creatinine Ratio 18.1 (10-20); Blood Urea Nitrogen 41 mg/dl (7-18); Calcium 8.4 mg/dl (8.5-10.1); Carbon Dioxide 26 mmol/L (21-32); Chloride 108 mmol/L (98-107); Creatinine Clr Calc Pharmacy 29.4 ml/min; Est GFR (African American) 30.1; Est GFR (Non-African American) 25.9; Glucose 314 mg/dl (70-99); Potassium 5.1 mmol/L (3.5-5.1); Sodium 140 mmol/L (136-145)
[2018-09-07 18:32] LABS: Albumin Globulin Ratio 0.9 (0.9-2); Bilirubin,Total 0.3 mg/dl (0.2-1); Total Protein 7.5 gm/dl (6.4-8.2)
[2018-09-07 18:40] LABS: Alkaline Phosphatase 236 U/L (45-117); Beta-Hydroxybutyrate 0.62 mg/dl (0.2-2.81); INR 1.1 (0.9-1.1); Prothrombin Time 10.9 Seconds (9.0-12.0); Troponin I < 0.015 ng/ml (0-0.045)
[2018-09-07 18:52] LABS: Influenza A virus by PCR Neg for Influ A (Neg); Influenza B virus by PCR Neg for Influ B (Neg)
[2018-09-07] MEDS ORDERED: ALUMINUM/MAGNESIUM SUSP 30 ML UDC PO PRN (21:16)
[2018-09-07] MEDS ORDERED: ONDANSETRON INJ 2 MG/ML 2 ML VIAL IV PRN (21:16)
[2018-09-07] MEDS ORDERED: NITROGLYCERIN SL 0.4 MG/TAB TAB SL PRN (21:16)
[2018-09-07] MEDS ORDERED: ALBUT/IPRATROP 3MG/0.5MG NEB 3 ML VIAL INH PRN (21:16)
[2018-09-07] MEDS ORDERED: ACETAMINOPHEN 325 MG TAB PO PRN (21:16)
[2018-09-07] MEDS ORDERED: PHARMACY GLYCEMIC MGMT CONSULT PRN (21:35)
[2018-09-07] MEDS ORDERED: GLUCAGON FOR INJ 1 MG VIAL SQ PRN (22:00)
[2018-09-07] MEDS ORDERED: GLUCOSE 10 TABS/TUBE PO PRN (22:00)
[2018-09-07] MEDS ORDERED: GLUCOSE 40% GEL 15 GM TUBE PO PRN (22:00)
[2018-09-07] MEDS ORDERED: DEXTROSE 50% 50 ML SYRINGE IV PRN (22:00)
[2018-09-07] MEDS ORDERED: CARBOHYDRATES FOR HYPOGLYCEMIA PO PRN (22:00)
[2018-09-07] MEDS ORDERED: INSULIN GLARGINE SOLOSTAR 100 UNITS/ML 3 ML PEN SC SCH (22:00)
[2018-09-07] MEDS: cefTRIAXone SODIUM 1,000 MG in DEXTROSE 5% 50 ML IV SCH (22:02)
[2018-09-07] MEDS: FUROSEMIDE 40 MG TAB PO SCH (22:03)
[2018-09-07] MEDS: CARVEDILOL 6.25 MG TAB PO SCH (22:03)
[2018-09-07] MEDS: APIXABAN 2.5 MG TAB PO SCH (22:04)
[2018-09-07] MEDS: INSULIN ASPART 100 UNITS/ML 3 ML PEN SC SCH (22:24)
--- NOTE | 2018-09-07 22:25 | Emergency Department Note ---
Entered by Red Dixon acting as a scribe for History of Present Illness General Chief complaint: Respiratory Problems Stated complaint: POSSIBLY HAS PNEUMONIA Source: patient Limitations: no limitations History of Present Illness Provider complaint: SOB/COUGH Onset (ago): day(s) (3) Location: chest (COUGH/SOB) Pain Consistency: + other (persistent) Maximum Pain Intensity: 0 Quality: + other (Cough/SOB) Associated symptoms: no chest pain Treatments prior to arrival: none The patient is an 83 year old male who presents to the Emergency Room with complaints of persistent cough and shortness of breath for the past 3 days. The patient states that his symptoms began Thursday morning, 3 days ago, when he lost his appetite. Later Thursday evening he developed a significant cough. The cough is producing a yellow mucous. The patient does feel unusually short of breath as well. He denies any chest pain, nausea, vomiting, diarrhea, or fevers. He has a history of COPD and asthma and wears oxygen at night. The patient also has a history of myocardial infarction. No other exacerbating or remitting factors. Home Medications Home Medications Medication Instructions Recorded Confirmed Type apixaban [Eliquis] 2.5 mg PO BID 09/07/18 09/07/18 History bicalutamide [Casodex] 50 mg PO DAILY 09/07/18 09/07/18 History carvedilol [Coreg] 6.25 mg PO BID 09/07/18 09/07/18 History clopidogrel [Plavix] 75 mg PO DAILY 09/07/18 09/07/18 History ferrous sulfate 325 mg PO DAILY 09/07/18 09/07/18 History furosemide [Lasix] 40 mg PO BID 09/07/18 09/07/18 History insulin aspart U-100 [Novolog 14 unit SUBCUT DAILYBD 09/07/18 09/07/18 History Flexpen U-100 Insulin] insulin aspart U-100 [Novolog 16 unit SUBCUT QAM 09/07/18 09/07/18 History Flexpen U-100 Insulin] insulin aspart U-100 [Novolog 21 units SUBCUT DAILYBL 09/07/18 09/07/18 History Flexpen U-100 Insulin] insulin degludec [Tresiba 54 unit SUBCUT QPM 09/07/18 09/07/18 History FlexTouch U-100] ipratropium-albuterol 3 ml INHALATION Q6 PRN 09/07/18 09/07/18 History lisinopril [Zestril] 5 mg PO DAILY 09/07/18 09/07/18 History multivitamin 1 tab PO QAM 09/07/18 09/07/18 History rosuvastatin [Crestor] 5 mg PO DAILY 09/07/18 09/07/18 History testosterone [AndroGel] 0 packet TRANSDERMAL UD 09/07/18 09/07/18 History Allergies Allergy/AdvReac Type Severity Reaction Status Date / Time iodine Allergy Intermediate "I GET Verified 09/07/18 19:46 HOT." Past Med/Surg History Medical History COPD (chronic obstructive pulmonary disease) (Chronic) CHF (congestive heart failure) Chronic renal disease, stage IV Hypertension Social History Preferred Language: Maltese Communication Ability: Impaired 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 and A total of 10 systems reviewed and were otherwise negative Physical Exam Vital Signs Vital Signs - 24 hr 09/07/18 17:16 09/07/18 17:38 09/07/18 19:19 Temperature 36.7 C Temperature Source Oral Sepsis Recent Fever Within 48 Hours No Sepsis New/Unexplained Change in Mental Status No Sepsis Action Taken by Nursing No Action Required Pulse Rate 73 Pulse Rate [Apical] 68 Respiratory Rate 18 26 H Respiratory Effort / Characteristics Labored Respiratory Depth Normal Respiratory Pattern Regular Blood Pressure 106/72 Blood Pressure [Left Arm] 186/63 H Blood Pressure Mean 83 Blood Pressure Mean [Left Arm] 104 Blood Pressure Position Sitting Pulse Oximetry 92 93 88 L Oxygen Delivery Method Room Air Room Air Room Air 09/07/18 19:22 09/07/18 20:35 09/07/18 22:16 Temperature Temperature Source Sepsis Recent Fever Within 48 Hours Sepsis New/Unexplained Change in Mental Status Sepsis Action Taken by Nursing Pulse Rate 68 Pulse Rate [Apical] Respiratory Rate Respiratory Effort / Characteristics Spontaneous Accessory Muscle Use Short of Breath SOB on Exertion Respiratory Depth Normal Respiratory Pattern Blood Pressure Blood Pressure [Left Arm] Blood Pressure Mean Blood Pressure Mean [Left Arm] Blood Pressure Position Pulse Oximetry 88 L Oxygen Delivery Method Room Air Nasal Cannula GENERAL: Sitting up in bed, alert, disheveled appearing with a persistent cough, non-toxic EYE EXAM: normal conjunctiva. OROPHARYNX: no exudate, no erythema, lips, buccal mucosa, and tongue normal and mucous membranes are moist NECK: supple, no nuchal rigidity, no adenopathy, non-tender LUNGS: Diffuse wheezing bilaterally. Normal chest wall mechanics HEART: no murmurs, S1 normal and S2 normal ABDOMEN: abdomen soft, non-tender, normo-active bowel, sounds, no masses, no rebound or guarding. BACK: Back is symmetrical on inspection and there is no deformity, no midline tenderness, no CVA tenderness. SKIN: no rashes and no bruising UPPER EXTREMITIES: upper extremities are grossly normal. LOWER EXTREMITIES: No pitting edema. Calves equal bilaterally. NEURO EXAM: Normal sensorium, cranial nerves II-XII grossly intact, normal speech, no gross weakness of arms, no gross weakness of legs. Course ED COURSE: Vital signs were reviewed and showed hypertension and hypoxia. The patients medical record was reviewed The above diagnostic studies were performed and reviewed. ED treatments and interventions as stated above. 1739: The patient was evaluated in room D3A. A complete history and physical examination was performed. 1958: I reviewed the patient's [facility] He will evaluate the patient for further management. 2010: Upon reevaluation, the patient is resting in bed. I discussed my findings with the patient and he understands and agrees with the treatment plan. Based on the patients age, coexisting illnesses, exam and lab findings the decision to treat as an inpatient was made. The patient remained stable while under my care. The patient will be evaluated for further management. Administered Medications Albuterol (Duoneb) 3 ml INH Q6 PRN PRN Reason: Shortness Of Breath Or Wheezing Stop: 10/07/18 21:15 Last Admin: 09/07/18 22:19 Dose: 3 ml Documented by: [id number] Apixaban (Eliquis) 2.5 mg PO BID ROWENA Stop: 10/07/18 21:15 Last Admin: 09/07/18 22:04 Dose: 2.5 mg Documented by: [id number] Carvedilol (Coreg) 6.25 mg PO BID ROWENA Stop: 10/07/18 21:15 Last Admin: 09/07/18 22:03 Dose: 6.25 mg Documented by: [id number] Furosemide (Lasix) 40 mg PO BID17 ROWENA Stop: 10/07/18 21:15 Last Admin: 09/07/18 22:03 Dose: 40 mg Documented by: [id number] Ceftriaxone Sodium 1,000 mg/ (Dextrose) 50 mls @ 100 mls/hr IV Q24H [facility]; Protocol Stop: 09/14/18 21:59 Last Admin: 09/07/18 22:02 Dose: 100 mls/hr Documented by: [id number] Discontinued Medications Albuterol (Ventolin 0.083% 2.5mg/3ml) 2.5 mg NEB NOW STA Stop: 09/07/18 17:49 Last Admin: 09/07/18 18:09 Dose: 2.5 mg Documented by: [id number] Levofloxacin/Dextrose (Levaquin/D5w) 750 mg in 150 mls @ 100 mls/hr IV NOW STA Stop: 09/07/18 19:16 Last Infusion: 09/07/18 19:51 Dose: 0 mls/hr Documented by: [id number] Admin: 09/07/18 18:09 Dose: 100 mls/hr Documented by: [id number] Sodium Chloride (Nss) 500 mls @ 999 mls/hr IV .Q31M ROWENA Stop: 09/07/18 18:30 Last Infusion: 09/07/18 18:48 Dose: 0 mls/hr Documented by: [id number] Admin: 09/07/18 18:17 Dose: 999 mls/hr Documented by: [id number] Methylprednisolone (Solumedrol) 125 mg IV NOW STA Stop: 09/07/18 17:49 Last Admin: 09/07/18 18:09 Dose: 125 mg Documented by: [id number] Medical Decision Making Differential Diagnosis Differential diagnosis: Etiologies such as infections, reactive airway disease, COPD, pneumonia, pleural effusion, pulmonary edema, ARDS, pneumothorax, CHF, cardiac ischemia, cardiac tamponade, dysrhythmia, anemia, pulmonary embolism, musculoskeletal, gastrointestinal process, as well as others were entertained. Medical Records Attestation: I reviewed the patient's medical records. Home Medications Current Medication List: was personally reviewed by me Laboratory Data Attestation: I reviewed the patient's lab results. Result diagrams: 09/07/18 18:00 09/07/18 18:00 Lab Results 09/07/18 09/07/18 09/07/18 Range/Units 18:00 18:00 18:00 WBC 9.14 (4.8-10.8) K/uL RBC 3.72 L (4.7-6.1) M/uL Hgb 10.9 L (14.0-18.0) g/dL Hct 34.2 L (42-52) % MCV 91.9 (80-100) fL MCH 29.3 (25-34) pg MCHC 31.9 L (32-36) g/dL RDW Std Deviation 51.5 H (36.4-46.3) fL RDW Coeff of Hermelindo 15.3 H (11.5-14.5) % Plt Count 170 (130-400) K/uL MPV 8.7 (7.4-10.4) fL Immature Gran % (Auto) 0.7 % Neut % (Auto) 58.4 % Lymph % (Auto) 23.7 % Billings % (Auto) 9.3 % Eos % (Auto) 7.4 % Baso % (Auto) 0.5 % Immature Gran # (Auto) 0.06 H (0.00-0.02) K/uL Neut # (Auto) 5.33 (1.4-6.5) K/uL Lymph # (Auto) 2.17 (1.2-3.4) K/uL Billings # (Auto) 0.85 H (0.11-0.59) K/uL Eos # (Auto) 0.68 H (0-0.5) K/uL Baso # (Auto) 0.05 (0-0.2) K/uL Absolute Nucleated RBC 0.02 H (0-0) K/uL Nucleated RBC % (auto) 0.2 % PT 10.9 (9.0-12.0) Seconds INR 1.1 (0.9-1.1) APTT 28.0 (21.0-31.0) Seconds PTT Ratio 1.0 Sodium 140 (136-145) mmol/L Potassium 5.1 (3.5-5.1) mmol/L Chloride 108 H (98-107) mmol/L Carbon Dioxide 26 (21-32) mmol/L Anion Gap 6.0 (3-11) BUN 41 H (7-18) mg/dl Creatinine 2.28 H (0.6-1.4) mg/dl Est Cr Clr Drug Dosing 29.4 ml/min Est GFR ( Amer) 30.1 Est GFR (Non-Af Amer) 25.9 BUN/Creatinine Ratio 18.1 (10-20) Glucose 314 H (70-99) mg/dl POC Glucose (70-99) Calcium 8.4 L (8.5-10.1) mg/dl Total Bilirubin 0.3 (0.2-1) mg/dl AST 24 (15-37) U/L ALT 21 (12-78) U/L Alkaline Phosphatase 236 H (45-117) U/L Troponin I < 0.015 (0-0.045) ng/ml Total Protein 7.5 (6.4-8.2) gm/dl Albumin 3.5 (3.4-5.0) gm/dl Globulin 4.0 (2.5-4.0) gm/dl Albumin/Globulin Ratio 0.9 (0.9-2) Beta-Hydroxybutyric Acd 0.62 (0.2-2.81) mg/dl Influenza Type A (PCR) (Neg) Influenza Type B (PCR) (Neg) 09/07/18 09/07/18 Range/Units 18:00 21:09 WBC (4.8-10.8) K/uL RBC (4.7-6.1) M/uL Hgb (14.0-18.0) g/dL Hct (42-52) % MCV (80-100) fL MCH (25-34) pg MCHC (32-36) g/dL RDW Std Deviation (36.4-46.3) fL RDW Coeff of Hermelindo (11.5-14.5) % Plt Count (130-400) K/uL MPV (7.4-10.4) fL Immature Gran % (Auto) % Neut % (Auto) % Lymph % (Auto) % Billings % (Auto) % Eos % (Auto) % Baso % (Auto) % Immature Gran # (Auto) (0.00-0.02) K/uL Neut # (Auto) (1.4-6.5) K/uL Lymph # (Auto) (1.2-3.4) K/uL Billings # (Auto) (0.11-0.59) K/uL Eos # (Auto) (0-0.5) K/uL Baso # (Auto) (0-0.2) K/uL Absolute Nucleated RBC (0-0) K/uL Nucleated RBC % (auto) % PT (9.0-12.0) Seconds INR (0.9-1.1) APTT (21.0-31.0) Seconds PTT Ratio Sodium (136-145) mmol/L Potassium (3.5-5.1) mmol/L Chloride (98-107) mmol/L Carbon Dioxide (21-32) mmol/L Anion Gap (3-11) BUN (7-18) mg/dl Creatinine (0.6-1.4) mg/dl Est Cr Clr Drug Dosing ml/min Est GFR ( Amer) Est GFR (Non-Af Amer) BUN/Creatinine Ratio (10-20) Glucose (70-99) mg/dl POC Glucose 264 H (70-99) Calcium (8.5-10.1) mg/dl Total Bilirubin (0.2-1) mg/dl AST (15-37) U/L ALT (12-78) U/L Alkaline Phosphatase (45-117) U/L Troponin I (0-0.045) ng/ml Total Protein (6.4-8.2) gm/dl Albumin (3.4-5.0) gm/dl Globulin (2.5-4.0) gm/dl Albumin/Globulin Ratio (0.9-2) Beta-Hydroxybutyric Acd (0.2-2.81) mg/dl Influenza Type A (PCR) Neg for Influ A (Neg) Influenza Type B (PCR) Neg for Influ B (Neg) Imaging Data Attestation: I personally reviewed and interpreted this imaging study as follows: Radiologist's Impression: XR chest 1V portable CLINICAL HISTORY: Dyspnea COMPARISON STUDY: Chest radiograph December 15, 2016. FINDINGS: There are median sternotomy wires and mediastinal surgical clips. Mild cardiomegaly is noted. Calcified right midlung nodule is noted. There is no pneumothorax or pleural effusion. There is no evidence for pulmonary edema. Mild right lower lung opacity favors atelectasis. IMPRESSION: 1. Mild cardiomegaly. No evidence for pulmonary edema. 2. Mild right lower lung opacity which favors atelectasis. Electronically signed by: Zach Allred M.D. 09/07/2018 6:25 PM ECG Data Attestation: I personally reviewed and interpreted this ECG as follows: Indication: SOB/dyspnea Rate (beats per minute): 70 Rhythm: other (undetermined - poor baseline) Findings: + other (LAD) and + LBBB; no PVC Blood Pressure Blood Pressure Findings: Elevated blood pressure MDM Narrative Patient is an 83-year-old male who presents the ER for cough with a productive sputum which is been present since this past Thursday. Upon presentation patient was found to be hypertensive tachypneic and slightly hypoxic. Labs show no significant leukocytosis or anemia. The BMP with a creatinine of 2.2 which consistent with previous. LFTs and troponin was unremarkable. Influenza was negative. Chest x-ray was unremarkable. Patient was given a neb treatment along with IV fluids and Levaquin. He was updated bedside. Due to the hypoxia and chest x-ray questioning pneumonia patient was updated bedside and admitted to the hospital. Impression & Plan Pneumonia, Hypoxic Discharge Plan Visit Data *Final* Discharge Date/Time: 09/07/18 20:27 Chief Complaint: Respiratory Problems Stated Complaint: POSSIBLY HAS PNEUMONIA ED Provider: Terry Cruz Discharge Problem: Pneumonia, Hypoxic Patient Disposition: Admitted As Inpatient Discharge Instructions Interventions: ED Discharge Assessment Last Done: 09/07/18 20:27 The scribe's documentation has been prepared under my direction and personally reviewed by me in its entirety. I confirm that the note above accurately reflects all work, treatment, procedures, and medical decision making performed by me.
[2018-09-07] MEDS: DOXYCYCLINE HYCLATE 100 MG CAP PO SCH (22:27)
--- NOTE | 2018-09-07 23:00 | History and Physical Report ---
DATE OF ADMISSION: 09/07/2018 CHIEF COMPLAINT: Shortness of breath. HISTORY OF PRESENT ILLNESS: This is an 83-year-old male with a past medical history significant for uncontrolled diabetes, hyperlipidemia, COPD, obesity, nocturnal hypoxia use oxygen at nighttime, hypertension, chronic kidney disease stage IV, chronic systolic CHF, aortic valve stenosis, CAD, anemia of chronic kidney disease, presents with shortness of breath. The patient says since the last 3 days getting short of breath with cough with yellowish phlegm. No chest pain, no fever or chills. It is getting progressively worse is not getting better, walking a few distance is making him short of breath. Denies orthopnea, says his CHF is under control. Blood sugars are mostly under control as per patient. Denies any headache, no blurred vision, no earache, no runny nose, no sore throat, no difficulty swallowing. Appetite is okay. No nausea, no abdominal pain. Normal bowel and bladder movements. No hematuria, no burning micturition. No melena or hematochezia. Lives with his . The patient was somewhat hypoxic on room air in the ER, requiring oxygen. Currently resting comfortably after receiving steroids, antibiotics and breathing treatments. ALLERGIES: DIPHENHYDRAMINE AND IODINE. PAST MEDICAL HISTORY: As mentioned above. Coronary artery disease status post stents. PAST SURGICAL HISTORY: No surgical history. MEDICATIONS: The patient is on NovoLog Flexpen 6 units prior to breakfast, 25 units prior to lunch and 14 units prior to dinner, insulin degludec 54 units under skin daily, Crestor 5 mg p.o. daily, DuoNebs every 6 hours p.r.n., Lasix 40 mg p.o. b.i.d., Eliquis 2.5 mg p.o. b.i.d., Plavix 75 mg p.o. daily, respiratory, Casodex 50 mg daily, Coreg 6.25 mg b.i.d., lisinopril 5 mg p.o. daily, ferrous sulfate 325 mg p.o. daily, multivitamins with minerals 1 tablet daily, oxygen 2 L as directed. FAMILY HISTORY: No family history on file. SOCIAL HISTORY: . Lives with his . Smokes 3 packs a day. Alcohol rare. No drug use. REVIEW OF SYMPTOMS: As per HPI. Rest of the review of systems negative. PHYSICAL EXAMINATION: GENERAL: The patient is obese, not in acute distress. VITAL SIGNS: Temperature 36.7, pulse 68, respiratory rate 26, blood pressure 186/65, oxygen 80% on room air. HEENT: No pallor, no icterus. Pupils equal, round and react to light. NECK: No JVD, no neck masses, no carotid bruits. CARDIOVASCULAR: S1, S2 heard, regular rate and rhythm, no murmur, no gallop. RESPIRATORY SYSTEM: Normal AP diameter. No accessory muscle use. Mild occasional wheezing, no crackles. ABDOMEN: Soft, bowel sounds present. Nontender. No distention. CENTRAL NERVOUS SYSTEM: Cranial nerves II-XII grossly intact. Nonfocal. EXTREMITIES: Bilateral lower extremity there is edema +1 present. No erythema seen. LABORATORIES: WBC 9.1, hemoglobin 10.9, hematocrit 34.2, platelets 170. PT 10.9, INR 1.1, APTT 28. Sodium 140, potassium 5.1, chloride 108, bicarbonate 26, BUN 41, creatinine 2.2, serum glucose 314, calcium 8.4, total bilirubin 0.3, AST 24, ALT 21, alkaline phosphatase 236. Troponin I less than 0.015 Influenza A and B, PCR negative. Chest x-ray: Mild cardiomegaly, no evidence of pulmonary edema, mild right lower lung opacity, which favors atelectasis. EKG: Shows normal sinus rhythm with rate of 70, left bundle branch block. ASSESSMENT AND PLAN: This is an 83-year-old male who presents with shortness of breath possibly from chronic obstructive pulmonary disease exacerbation. 1. Shortness of breath. Most likely chronic obstructive pulmonary disease exacerbation with possible bronchitis. The patient received IV Solu-Medrol, nebs and IV Levaquin in the Emergency Room. We will continue with nebs around the clock, Rocephin, and doxycycline and oxygen. Monitor the response. May need 2-step prior to discharge. 2. History of systolic congestive heart failure, last admission in 2017 mentioned an ejection fraction around 20%-25%. On Lasix 40 b.i.d. and lisinopril. On chest x-ray, no congestion. The left bundle branch block seems to be new. We will follow with an echocardiogram to see if the patient is candidate for any implantable cardioverter-defibrillator placement. The patient follows with cardiology at [facility]. 3. Diabetes. Continue his home insulin degludec. Placed him on insulin sliding scale.As starting prednisone will consult glycemic pharmacy to help with insulin regimen. Follow hemoglobin A1c levels. 4. History of coronary artery disease status post stent. Continue with Crestor, Plavix, Coreg. 5. History of paroxysmal atrial fibrillation, on Eliquis and coreg. 6. History of anemia of chronic disease on iron supplements. Hemoglobin is 10.9. 7. Obesity. On nocturnal oxygen. 8. Deep venous thrombosis prophylaxis, on Eliquis. DISPOSITION: Closely monitor in the med/tele. Level I full code. PT and OT prior to discharge. Social Service to help with discharge planning. REJI
[2018-09-08 01:45] LABS: Appearance Urine Clear (Clear); Bacteria Urine Automated Negative (Negative); Bilirubin Urine Negative (Negative); Blood Urine Negative (Negative); Color Urine Yellow; Glucose Urine UA 2+ (Negative); Ketones Urine Negative (Negative); Leukocyte Esterase Urine Negative (Negative); Nitrite Urine Negative (Negative); Protein Urine Trace (Negative); RBC Urine Automated 0-4 /hpf (0-4); Specific Gravity Urine 1.018 (1.000-1.030); Urobilinogen Urine Negative (Negative); WBC Urine Automated 0 /hpf (0-5)
[2018-09-08] MEDS ORDERED: INSULIN ASPART 100 UNITS/ML 3 ML PEN SC SCH (02:00)
[2018-09-08 05:57] LABS: Basophils # (auto) 0.03 K/uL (0-0.2); Basophils % (auto) 0.3 %; Eosinophils # (auto) 0.06 K/uL (0-0.5); Eosinophils % (auto) 0.5 %; Hematocrit (blood only) 33.3 % (42-52); Hemoglobin 10.8 g/dL (14.0-18.0); Immature Granulocytes % (auto) 0.9 %; Lymphocytes # (auto) 1.44 K/uL (1.2-3.4); Lymphocytes % (auto) 12.8 %; Mean Corpuscular Hgb Conc 32.4 g/dL (32-36); Mean Platelet Volume 9.2 fL (7.4-10.4); Monocytes # (auto) 0.19 K/uL (0.11-0.59); Monocytes % (auto) 1.7 %; Neutrophils # (auto) 9.39 K/uL (1.4-6.5); Neutrophils % (auto) 83.8 %; Platelet Count 175 K/uL (130-400); RDW Coefficient of Variation 15.1 % (11.5-14.5); RDW Standard Deviation 50.8 fL (36.4-46.3); Red Blood Count 3.66 M/uL (4.7-6.1); White Blood Count 11.21 K/uL (4.8-10.8)
[2018-09-08 06:31] LABS: BUN Creatinine Ratio 20.4 (10-20); Calcium 8.4 mg/dl (8.5-10.1); Creatinine Clr Calc Pharmacy 29.8 ml/min; Est GFR (African American) 30.6; Est GFR (Non-African American) 26.4; Estimated Average Glucose 157 mg/dl; Hemoglobin A1C 7.1 % (4.5-5.6); Magnesium 2.3 mg/dl (1.8-2.4); Potassium 5.1 mmol/L (3.5-5.1)
[2018-09-08] MEDS: ALBUT/IPRATROP 3MG/0.5MG NEB 3 ML VIAL NEB SCH ×4 (07:09→18:54)
[2018-09-08] MEDS ORDERED: PERFLUTREN LIPID MICROSPHERE (DEFINITY) IV ONE (07:40)
[2018-09-08] MEDS: ROSUVASTATIN CALCIUM 5 MG TAB PO SCH (08:15)
[2018-09-08] MEDS: CLOPIDOGREL BISULFATE 75 MG TAB PO SCH (08:15)
[2018-09-08] MEDS: LISINOPRIL 5 MG TAB PO SCH (08:15)
[2018-09-08] MEDS: BICALUTAMIDE 50 MG TAB PO SCH (08:15)
[2018-09-08] MEDS: APIXABAN 2.5 MG TAB PO SCH ×2 (08:15→20:40)
[2018-09-08] MEDS: CARVEDILOL 6.25 MG TAB PO SCH ×2 (08:15→20:40)
[2018-09-08] MEDS: MULTIVITAMIN TAB PO SCH (08:16)
[2018-09-08] MEDS: predniSONE 20 MG TAB PO SCH (08:16)
[2018-09-08] MEDS: FUROSEMIDE 40 MG TAB PO SCH ×2 (08:16→16:56)
[2018-09-08] MEDS: DOXYCYCLINE HYCLATE 100 MG CAP PO SCH ×2 (08:16→20:39)
[2018-09-08] MEDS: INSULIN ASPART 100 UNITS/ML 3 ML PEN SC SCH ×6 (08:24→23:55)
[2018-09-08] MEDS ORDERED: INSULIN GLARGINE SOLOSTAR 100 UNITS/ML 3 ML PEN SC SCH ×2 (09:00→21:00)
[2018-09-08] MEDS: FERROUS SULFATE 325 MG TAB PO SCH (12:17)
--- NOTE | 2018-09-08 14:24 | Pharmacy Report ---
Glycemic Control Consultation - Date of Service September 08, 2018 - Scope Scope: Glycemic Pharmacist consulted by Dr Lynn on 09/07/18 for glycemic control and to write orders per [facility] inpatient glycemic control protocol - Objective Weight: 104.1 kg Accuchecks BSG (last 24hrs): 09/07/18 09/07/18 09/08/18 18:00 21:09 02:04 Glucose 314 H POC Glucose 264 H 307 H 09/08/18 09/08/18 09/08/18 05:18 07:48 11:17 Glucose 244 H POC Glucose 222 H 302 H Laboratory Data (last 24hrs): 09/07/18 09/08/18 18:00 05:18 Potassium 5.1 5.1 Carbon Dioxide 26 21 Anion Gap 6.0 8.0 Creatinine 2.28 H 2.25 H Est Cr Clr Drug Dosing 29.4 29.8 Beta-Hydroxybutyric Acd 0.62 HbA1c: Hemoglobin A1c 7.1 % (4.5-5.6) H 09/08/18 05:18 - Recent Pertinent Medications Outpatient Anti-diabetic Regimen: * Tresiba 54 units SC qPM, * Novolog 16 units qAM, 21 units at lunch, 14 units at dinner * A1c = 7.1 % on 09/08/18 The patient is currently receiving: * Basal insulin: Lantus 40 units x 1 given last night. * Correctional Insulin: Novolog Correction per scale ACHS Goal Range: Low 120 mg/dL - High 150 mg/dL Correction Factor: 15 mg/dL/unit * Prandial insulin: Per carb ratio of 1 unit per 5 grams CHO consumed Risk Factors for Insulin Resistance: * Steroids: Prednisone 40 mg daily * Infection: Bronchitis * Diet: Type 2 Diabetes - Assessment & Plan Assessment & Plan: ASSESSMENT: * 83 y/o M with diabetes managed with long acting Tresiba insulin and Novolog. He is currently admitted with COPD exacerbation with bronchitis treated with IV antibiotic. * Pharmacy is consulted to manage insulin for in-patient glycemic control. * Patient received one dose of Lantus 40 units last night and was put on Novolog with CF = 20 and CR = 7. BSG check overnight = 307 then fasting BSG = 244 this AM. * CF and CR was tightened this morning to 15 and 5 respectively, but BSG continued to be high at 302 at lunch. Therefore they were further tightened to 10 and 4 respectively at dinner today. * Patient is ordered Prenisone 40 mg daily and received a dose of Solu-medrol 125 mg IV x 1 dose yesterday in the ED which can elevate BSGs. * Renal function remains poor with Scr = 2.25 and Crcl = 29.8, which means he is probably also not clearing the insulin doses very well. * Lantus dose for tonight is ordered based on a scale. PLAN FOR INPATIENT GLYCEMIC CONTROL * Basal insulin: Lantus based on scale * For BSG less than 140= Lantus 35 units, BSG 140-180= Lantus 40 units, BSG greater than 180= Lantus 45 units * Bolus insulin * NovoLog per scale ACHS or Q6hrs while NPO * Goal Range: Low 120 mg/dL - High 150 mg/dL * Correction Factor: 10 mg/dL/unit * Nutritional / Prandial insulin per carb ratio of 1 unit per 4 grams CHO consumed * Please note that the plan above was derived based on current level of insulin resistance and hospital stress. These recommendations are appropriate for inpatient admission only. Plan of care upon discharge will need to be reassessed to avoid potential outpatient hypo/hyperglycemia. Thank you.
--- NOTE | 2018-09-08 18:45 | Hospitalist Progress Note ---
Date of Service September 08, 2018 Assessment & Plan (1) COPD (chronic obstructive pulmonary disease): This is an 83-year-old male who presents with shortness of breath secondary to chronic obstructive pulmonary disease exacerbation. Admission There are median sternotomy wires and mediastinal surgical clips. Mild cardiomegaly is noted. Calcified right midlung nodule is noted. There is no pneumothorax or pleural effusion. There is no evidence for pulmonary edema. Mild right lower lung opacity favors atelectasis. IMPRESSION: 1. Mild cardiomegaly. No evidence for pulmonary edema. 2. Mild right lower lung opacity which favors atelectasis. chronic obstructive pulmonary disease exacerbation -Shortness of breath is improved with scheduled nebulizer treatments, continue nebulizers -reports oxygen supplementation at baseline -continue prednisone -continue respiratory antibiotics of ceftriaxone and doxycycline for now History of coronary artery disease status with stent Chronic systolic congestive heart failure -not in CHF exacerbation -as per a November 2016 [facility] records patient was documented in the past for a [facility] Hospital stay in Nov 2016 when he had cardiac catheterization with 2 stents (left main and circumflex) and His EF is 20 to 25% -Echocardiogram on this admission with EF 45 to 50%; akinesis of the mid to distal inferoseptum and distal inferior wall and apical segments -no chest pain -continue home dose Lasix 40 b.i.d. and lisinopril. -Continue with Crestor, Plavix, Coreg. -The patient follows with cardiology at [place] History of paroxysmal atrial fibrillation on Eliquis and coreg. heart rate is controlled Diabetes Mellitus Type 2 on intermediate use of insulin on long acting insulin and insulin sliding scale active consult with pharmacy glycemic control History of anemia of chronic disease on iron supplements. Hemoglobin stable Deep venous thrombosis prophylaxis, on Eliquis Subjective Patient does not appear to be in respiratory distress. He is breathing on nasal cannula oxygen. He reports using oxygen at home. reports his breathing has improved while in the hospital. denied chest pain or abdominal pain Physical Exam Vital Signs (Past 24 Hours): Last Vital Signs Temp 36.5 C 09/08/18 16:21 Pulse 61 09/08/18 16:21 Resp 20 09/08/18 16:21 BP 128/64 09/08/18 16:21 Pulse Ox 92 09/08/18 16:21 Constitutional: WD/WN, vitals as above Eyes: PERRL, conjunctivae normal, anicteric sclerae EOM intact bilaterally ENMT: external ear and nose normal, oropharynx normal Neck: trachea midline, no thyromegaly Respiratory: normal respiratory effort, lungs clear to auscultation Cardiovascular: Rate/Rhythm: regular rhythm and + bradycardic Gastrointestinal (Abdomen): normal bowel sounds, soft, nontender, no hepatosplenomegaly Musculoskeletal: Head/Neck/Chest: normocephalic and head atraumatic Neurologic: PERRL, EOMI, accommodation nl, no face palsy, no dysarthria CN's II-XI intact bilaterally Psychiatric: A+Ox3, euthymic affect
[2018-09-08] MEDS: cefTRIAXone SODIUM 1,000 MG in DEXTROSE 5% 50 ML IV SCH (21:26)
[2018-09-09] MEDS: INSULIN ASPART 100 UNITS/ML 3 ML PEN SC SCH ×3 (04:15→13:11)
[2018-09-09 06:43] LABS: Basophils # (auto) 0.01 K/uL (0-0.2); Basophils % (auto) 0.1 %; Eosinophils # (auto) 0.02 K/uL (0-0.5); Eosinophils % (auto) 0.1 %; Hematocrit (blood only) 32.9 % (42-52); Hemoglobin 10.6 g/dL (14.0-18.0); Immature Granulocytes # (auto) 0.22 K/uL (0.00-0.02); Immature Granulocytes % (auto) 1.3 %; Lymphocytes # (auto) 2.03 K/uL (1.2-3.4); Lymphocytes % (auto) 11.7 %; Mean Corpuscular Hgb Conc 32.2 g/dL (32-36); Mean Corpuscular Volume 90.4 fL (80-100); Mean Platelet Volume 8.9 fL (7.4-10.4); Monocytes # (auto) 1.13 K/uL (0.11-0.59); Monocytes % (auto) 6.5 %; Neutrophils # (auto) 13.93 K/uL (1.4-6.5); Neutrophils % (auto) 80.3 %; Platelet Count 159 K/uL (130-400); RDW Coefficient of Variation 15.4 % (11.5-14.5); RDW Standard Deviation 50.5 fL (36.4-46.3); Red Blood Count 3.64 M/uL (4.7-6.1); White Blood Count 17.34 K/uL (4.8-10.8)
[2018-09-09 07:18] LABS: BUN Creatinine Ratio 25.4 (10-20); Calcium 8.5 mg/dl (8.5-10.1); Creatinine Clr Calc Pharmacy 27.5 ml/min; Est GFR (Non-African American) 24.1; Potassium 4.9 mmol/L (3.5-5.1)
[2018-09-09] MEDS: ALBUT/IPRATROP 3MG/0.5MG NEB 3 ML VIAL NEB SCH ×3 (07:18→15:13)
[2018-09-09] MEDS: LISINOPRIL 5 MG TAB PO SCH (08:17)
[2018-09-09] MEDS: CLOPIDOGREL BISULFATE 75 MG TAB PO SCH (08:20)
[2018-09-09] MEDS: DOXYCYCLINE HYCLATE 100 MG CAP PO SCH (08:20)
[2018-09-09] MEDS: predniSONE 20 MG TAB PO SCH (08:20)
[2018-09-09] MEDS: BICALUTAMIDE 50 MG TAB PO SCH (08:21)
[2018-09-09] MEDS: ROSUVASTATIN CALCIUM 5 MG TAB PO SCH (08:21)
[2018-09-09] MEDS: FUROSEMIDE 40 MG TAB PO SCH (08:21)
[2018-09-09] MEDS: MULTIVITAMIN TAB PO SCH (08:22)
[2018-09-09] MEDS: CARVEDILOL 6.25 MG TAB PO SCH (08:22)
[2018-09-09] MEDS: APIXABAN 2.5 MG TAB PO SCH (08:23)
[2018-09-09] MEDS ORDERED: INSULIN GLARGINE SOLOSTAR 100 UNITS/ML 3 ML PEN SC SCH (09:00)
[2018-09-09] MEDS: FERROUS SULFATE 325 MG TAB PO SCH (13:14)
--- NOTE | 2018-09-09 14:07 | Pharmacy Report ---
Pharmacy Glycemic Short Note 2 - Date of Service September 09, 2018 - Glycemic Short BSG Results (Last 24 hours): 09/08/18 09/08/18 09/08/18 15:54 20:28 23:53 Glucose POC Glucose 218 H 233 H 152 H 09/09/18 09/09/18 09/09/18 04:14 06:30 07:35 Glucose 131 H POC Glucose 122 H 140 H 09/09/18 11:39 Glucose POC Glucose 160 H ASSESSMENT: 3-21: * Patient received total of 161 units of insulin yesterday, of which 75 units was basal insulin * BSGs trending down yesterday after further tightening CF/CR - higher BSGs likely related to solumedrol dose given in ER 09/07 pm * Fasting BSG this am appropriate at 131 mg/dL - will continue with Lantus 35 units this am, patient also continues on prednisone 40 mg daily * Anticipate BSGs to be trending down further today as insulin needs will likely decrease - likely needed more insulin yesterday due to solumedrol dose * Lunchtime BSG much improved today at 160 mg/dL - will continue same CF/CR for now * Will provide a scale for this evening based upon BSG for Lantus dosing / unsure what needs are at this time since transitioning to prednisone * Of note, Scr also trending up today - will monitor 3-: * 83 y/o M with diabetes managed with long acting Tresiba insulin and Novolog. He is currently admitted with COPD exacerbation with bronchitis treated with IV antibiotic. * Pharmacy is consulted to manage insulin for in-patient glycemic control. * Patient received one dose of Lantus 40 units last night and was put on Novolog with CF = 20 and CR = 7. BSG check overnight = 307 then fasting BSG = 244 this AM. * CF and CR was tightened this morning to 15 and 5 respectively, but BSG continued to be high at 302 at lunch. Therefore they were further tightened to 10 and 4 respectively at dinner today. * Patient is ordered Prenisone 40 mg daily and received a dose of Solu-medrol 125 mg IV x 1 dose yesterday in the ED which can elevate BSGs. * Renal function remains poor with Scr = 2.25 and Crcl = 29.8, which means he is probably also not clearing the insulin doses very well. * Lantus dose for tonight is ordered based on a scale. PLAN FOR INPATIENT GLYCEMIC CONTROL: * Hold outpatient oral diabetes medications * Basal insulin * Lantus 35 this am, then scale starting tonight -For BSG less than 100 - give 25 units -For BSG 100-139 - give 30 units -For BSG 140-179 - give 35 units -For BSG 180 or greater - give 40 units * Bolus insulin - no change * NovoLog per scale ACHS or Q6hrs while NPO * Goal Range: Low 120 mg/dL - High 150 mg/dL * Correction Factor: 10 mg/dL/unit * Nutritional / Prandial insulin per carb ratio of 1 unit per 4 grams CHO consumed
--- NOTE | 2018-09-09 15:58 | Hospitalist Progress Note ---
Date of Service September 09, 2018 Assessment & Plan (1) COPD (chronic obstructive pulmonary disease): This is an 83-year-old male who presents with shortness of breath secondary to chronic obstructive pulmonary disease exacerbation. Admission There are median sternotomy wires and mediastinal surgical clips. Mild cardiomegaly is noted. Calcified right midlung nodule is noted. There is no pneumothorax or pleural effusion. There is no evidence for pulmonary edema. Mild right lower lung opacity favors atelectasis. IMPRESSION: 1. Mild cardiomegaly. No evidence for pulmonary edema. 2. Mild right lower lung opacity which favors atelectasis. chronic obstructive pulmonary disease exacerbation during this hospital stay patient received nebulizer treatments and was transitioned from solumedrol to prednisone he had IV ceftriaxone and IV doxycycline from admission to 09/09/18 on 09/09/18 Patient had 2 step test today and respiratory therapist advised 2 liter/min oxygen with ambulation and no supplemental oxygen needed at rest. Patient to be discharged with portable home oxygen to be used as 2 liters/min with ambulation Patient will be discharged on 4 more days of Doxycycline to be taken as 100 mg BID. Patient will be discharged on 4 more days of Prednisone of 40 mg daily History of coronary artery disease status with stent Chronic systolic congestive heart failure -not in CHF exacerbation -as per a November 2016 [facility] records patient was [facility] the [facility] when he had cardiac catheterization with 2 stents (left main and circumflex) and His EF is 20 to 25% -Echocardiogram on this admission with EF 45 to 50%; akinesis of the mid to distal inferoseptum and distal inferior wall and apical segments -no chest pain -continue home dose Lasix 40 b.i.d. and lisinopril. -Continue with Crestor, Plavix, Coreg. -The patient follows with cardiology at [place] History of paroxysmal atrial fibrillation on Eliquis and coreg. heart rate is controlled Diabetes Mellitus Type 2 on fci use of insulin on long acting insulin and insulin sliding scale active consult with pharmacy glycemic control while inpatient patient may resume home dosing of insulin on discharge Chronic Kidney disease stage IV Patient has outpatient follow up with nephrology clinic History of anemia of chronic disease on iron supplements. Hemoglobin stable Deep venous thrombosis prophylaxis, on Eliquis Discharge Diagnosis chronic obstructive pulmonary disease exacerbation, Chronic systolic congestive heart failure, History of coronary artery disease status with stent, History of paroxysmal atrial fibrillation and on anticoagulation with eliquis, Chronic Kidney Disease stage IV, Diabetes Mellitus Type 2 on fci use of insulin Discharge Instructions Patient to be discharged with portable home oxygen to be used as 2 liters/min with ambulation Patient will be discharged on 4 more days of Doxycycline to be taken as 100 mg BID. Patient will be discharged on 4 more days of Prednisone of 40 mg daily 09/13/2018 3:10 PM Provider Grace Skaggs MD Department Nephrology [facility] 09/14/2018 11:20 AM Provider Roberto Mclaughlin [facility] 11/17/2018 9:00 AM Provider [facility], [facility] 11/22/2018 9:00 AM Provider Roberto Mclaughlin [facility] Subjective Patient had 2 step test today and respiratory therapist advised 2 liter/min oxygen with ambulation and no supplemental oxygen needed at rest. Patient breathing on room air while sitting up in chair. Reports breathing much improved. Denies chest pain or pain elsewhere. He appears comfortable. Portable oxygen tank has been delivered at bedside. He is ready to be discharged Physical Exam Vital Signs (Past 24 Hours): Last Vital Signs Temp 36.4 C L 09/09/18 11:29 Pulse 62 09/09/18 15:13 Resp 18 09/09/18 15:13 BP 134/75 09/09/18 11:29 Pulse Ox 91 09/09/18 15:13 Constitutional: WD/WN, vitals as above Eyes: PERRL, conjunctivae normal, anicteric sclerae EOM intact bilaterally ENMT: external ear and nose normal, oropharynx normal Neck: trachea midline, no thyromegaly Respiratory: normal respiratory effort, lungs clear to auscultation Cardiovascular: Rate/Rhythm: regular rhythm and + bradycardic Gastrointestinal (Abdomen): normal bowel sounds, soft, nontender, no hepatosplenomegaly Musculoskeletal: Head/Neck/Chest: normocephalic and head atraumatic Neurologic: PERRL, EOMI, accommodation nl, no face palsy, no dysarthria CN's II-XI intact bilaterally Psychiatric: A+Ox3, euthymic affect
--- NOTE | 2018-09-09 16:03 | Discharge Summary ---
Date of Service September 09, 2018 Admission HPI Per Admitting Provider DATE OF ADMISSION: 09/07/2018 CHIEF COMPLAINT: Shortness of breath. HISTORY OF PRESENT ILLNESS: This is an 83-year-old male with a past medical history significant for uncontrolled diabetes, hyperlipidemia, COPD, obesity, nocturnal hypoxia use oxygen at nighttime, hypertension, chronic kidney disease stage IV, chronic systolic CHF, aortic valve stenosis, CAD, anemia of chronic kidney disease, presents with shortness of breath. The patient says since the last 3 days getting short of breath with cough with yellowish phlegm. No chest pain, no fever or chills. It is getting progressively worse is not getting better, walking a few distance is making him short of breath. Denies orthopnea, says his CHF is under control. Blood sugars are mostly under control as per patient. Denies any headache, no blurred vision, no earache, no runny nose, no sore throat, no difficulty swallowing. Appetite is okay. No nausea, no abdominal pain. Normal bowel and bladder movements. No hematuria, no burning micturition. No melena or hematochezia. Lives with his . The patient was somewhat hypoxic on room air in the ER, requiring oxygen. Currently resting comfortably after receiving steroids, antibiotics and breathing treatments. ALLERGIES: DIPHENHYDRAMINE AND IODINE. PAST MEDICAL HISTORY: As mentioned above. Coronary artery disease status post stents. PAST SURGICAL HISTORY: No surgical history. MEDICATIONS: The patient is on NovoLog Flexpen 6 units prior to breakfast, 25 units prior to lunch and 14 units prior to dinner, insulin degludec 54 units under skin daily, Crestor 5 mg p.o. daily, DuoNebs every 6 hours p.r.n., Lasix 40 mg p.o. b.i.d., Eliquis 2.5 mg p.o. b.i.d., Plavix 75 mg p.o. daily, respiratory, Casodex 50 mg daily, Coreg 6.25 mg b.i.d., lisinopril 5 mg p.o. daily, ferrous sulfate 325 mg p.o. daily, multivitamins with minerals 1 tablet daily, oxygen 2 L as directed. FAMILY HISTORY: No family history on file. SOCIAL HISTORY: . Lives with his . Smokes 3 packs a day. Alcohol rare. No drug use. REVIEW OF SYMPTOMS: As per HPI. Rest of the review of systems negative. Admission Exam Per Admitting Provider PHYSICAL EXAMINATION: GENERAL: The patient is obese, not in acute distress. VITAL SIGNS: Temperature 36.7, pulse 68, respiratory rate 26, blood pressure 186/65, oxygen 80% on room air. HEENT: No pallor, no icterus. Pupils equal, round and react to light. NECK: No JVD, no neck masses, no carotid bruits. CARDIOVASCULAR: S1, S2 heard, regular rate and rhythm, no murmur, no gallop. RESPIRATORY SYSTEM: Normal AP diameter. No accessory muscle use. Mild occasional wheezing, no crackles. ABDOMEN: Soft, bowel sounds present. Nontender. No distention. CENTRAL NERVOUS SYSTEM: Cranial nerves II-XII grossly intact. Nonfocal. EXTREMITIES: Bilateral lower extremity there is edema +1 present. No erythema seen. Principal Diagnosis chronic obstructive pulmonary disease exacerbation, Chronic systolic congestive heart failure, History of coronary artery disease status with stent, History of paroxysmal atrial fibrillation and on anticoagulation with eliquis, Chronic Kidney Disease stage IV, Diabetes Mellitus Type 2 on shelter use of insulin Discharge Exam Constitutional WD/WN, vitals as above Eyes PERRL, conjunctivae normal, anicteric sclerae EOM intact bilaterally ENMT external ear and nose normal, oropharynx normal Neck trachea midline, no thyromegaly Respiratory normal respiratory effort, lungs clear to auscultation Cardiovascular Rate/Rhythm: regular rhythm and + bradycardic Gastrointestinal (Abdomen) normal bowel sounds, soft, nontender, no hepatosplenomegaly Musculoskeletal Head/Neck/Chest: normocephalic and head atraumatic Neurologic PERRL, EOMI, accommodation nl, no face palsy, no dysarthria CN's II-XI intact bilaterally Psychiatric A+Ox3, euthymic affect Discharge Data Allergies Allergy/AdvReac Type Severity Reaction Status Date / Time iodine Allergy Intermediate "I GET Verified 09/07/18 19:46 HOT." Consultations 09/07/18 20:02 ED Decision to Admit Stat 09/07/18 21:16 Consult Case Management - Discharge Planning Routine Hospital Course (1) COPD (chronic obstructive pulmonary disease): This is an 83-year-old male who presents with shortness of breath secondary to chronic obstructive pulmonary disease exacerbation. Admission There are median sternotomy wires and mediastinal surgical clips. Mild cardiomegaly is noted. Calcified right midlung nodule is noted. There is no pneumothorax or pleural effusion. There is no evidence for pulmonary edema. Mild right lower lung opacity favors atelectasis. IMPRESSION: 1. Mild cardiomegaly. No evidence for pulmonary edema. 2. Mild right lower lung opacity which favors atelectasis. chronic obstructive pulmonary disease exacerbation during this hospital stay patient received nebulizer treatments and was transitioned from solumedrol to prednisone he had IV ceftriaxone and IV doxycycline from admission to 09/09/18 on 09/09/18 Patient had 2 step test today and respiratory therapist advised 2 liter/min oxygen with ambulation and no supplemental oxygen needed at rest. Patient to be discharged with portable home oxygen to be used as 2 liters/min with ambulation Patient will be discharged on 4 more days of Doxycycline to be taken as 100 mg BID. Patient will be discharged on 4 more days of Prednisone of 40 mg daily History of coronary artery disease status with stent Chronic systolic congestive heart failure -not in CHF exacerbation -as per a November 2016 [facility] records patient was documented in the past for a [facility] Hospital stay in Nov 2016 when he had cardiac catheterization with 2 stents (left main and circumflex) and His EF is 20 to 25% -Echocardiogram on this admission with EF 45 to 50%; akinesis of the mid to distal inferoseptum and distal inferior wall and apical segments -no chest pain -continue home dose Lasix 40 b.i.d. and lisinopril. -Continue with Crestor, Plavix, Coreg. -The patient follows with cardiology at [place] History of paroxysmal atrial fibrillation on Eliquis and coreg. heart rate is controlled Diabetes Mellitus Type 2 on shelter use of insulin on long acting insulin and insulin sliding scale active consult with pharmacy glycemic control while inpatient patient may resume home dosing of insulin on discharge Chronic Kidney disease stage IV Patient has outpatient follow up with nephrology clinic History of anemia of chronic disease on iron supplements. Hemoglobin stable Deep venous thrombosis prophylaxis, on Eliquis Discharge Diagnosis chronic obstructive pulmonary disease exacerbation, Chronic systolic congestive heart failure, History of coronary artery disease status with stent, History of paroxysmal atrial fibrillation and on anticoagulation with eliquis, Chronic Kidney Disease stage IV, Diabetes Mellitus Type 2 on shelter use of insulin Discharge Instructions Patient to be discharged with portable home oxygen to be used as 2 liters/min with ambulation Patient will be discharged on 4 more days of Doxycycline to be taken as 100 mg BID. Patient will be discharged on 4 more days of Prednisone of 40 mg daily 09/13/2018 3:10 PM Provider Grace Skaggs MD Department Nephrology [facility] 09/14/2018 11:20 AM Provider Roberto Mclaughlin DO [facility] 11/17/2018 9:00 AM Provider [facility], [facility] 11/22/2018 9:00 AM Provider Roberto Mclaughlin [facility] Total Time Total Time Spent Total Time Spent (In Minutes): 40 minutes Total Time Includes: Examination of the Patient, Discharge Planning and Medication Reconciliation Discharge Plan Discharge Items Patient Disposition: Home - Self-Care Reason For Visit: SOB Discharge Diagnosis: chronic obstructive pulmonary disease exacerbation, Chronic systolic congestive heart failure, History of coronary artery disease status with stent, History of paroxysmal atrial fibrillation and on anticoagulation with eliquis, Chronic Kidney Disease stage IV, 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 [Primary Care Provider] - Diet: Carb Consistent or DM2 Addtl Provider Instructions: Patient to be discharged with portable home oxygen to be used as 2 liters/min with ambulation Patient will be discharged on 4 more days of Doxycycline to be taken as 100 mg BID. Patient will be discharged on 4 more days of Prednisone of 40 mg daily 09/13/2018 3:10 PM Provider Grace Skaggs MD Department Nephrology [facility] 09/14/2018 11:20 AM Provider Roberto Mclaughlin [facility] 11/17/2018 9:00 AM Provider [facility], [facility] 11/22/2018 9:00 AM Provider Roberto Mclaughlin [facility] Prescriptions: New doxycycline hyclate 100 mg Capsule 100 mg PO BID 4 Days Qty: 8 RF: 0 prednisone 20 mg Tablet 40 mg PO DAILY 4 Days Qty: 8 RF: 0 Continued furosemide [Lasix] 40 mg tablet 40 mg PO BID RF: 0 bicalutamide [Casodex] 50 mg tablet 50 mg PO DAILY RF: 0 carvedilol [Coreg] 6.25 mg tablet 6.25 mg PO BID RF: 0 ipratropium-albuterol 0.5 mg-3 mg(2.5 mg base)/3 mL Solution For Nebulization 3 ml INHALATION Q6 PRN (Reason: Shortness Of Breath Or Wheezing) RF: 0 clopidogrel [Plavix] 75 mg tablet 75 mg PO DAILY RF: 0 Novolog Flexpen U-100 Insulin 100 unit/mL (3 mL) insulin pen 16 unit subcut QAM RF: 0 Novolog Flexpen U-100 Insulin 100 unit/mL (3 mL) insulin pen 21 units subcut DAILYBL RF: 0 Novolog Flexpen U-100 Insulin 100 unit/mL (3 mL) insulin pen 14 unit subcut DAILYBD RF: 0 rosuvastatin [Crestor] 5 mg tablet 5 mg PO DAILY RF: 0 Eliquis 2.5 mg tablet 2.5 mg PO BID RF: 0 Tresiba FlexTouch U-100 100 unit/mL (3 mL) insulin pen 54 unit subcut QPM RF: 0 lisinopril [Zestril] 5 mg tablet 5 mg PO DAILY RF: 0 multivitamin Tablet 1 tab PO QAM RF: 0 testosterone [AndroGel] 1 % (25 mg/2.5gram) Gel In Packet TRANSDERMAL UD RF: 0 ferrous sulfate 325 mg (65 mg iron) Tablet 325 mg PO DAILY RF: 0 Stand-Alone Forms: [facility] Discharge Orders: Discharge Order (Routine); Ordered 09/09/18 Ordered By: Rey Viveros Admission Data Admit Date/Time: 09/07/18 20:06 Attending Provider: Rey Viveros Admit Provider: Lon Lynn Primary Care Provider: Roberto Mclaughlin Other Providers: Lon Lynn Service: Telemetry Medical Other Interventions: Discharge Summary Assessment (RN) Last Done: 09/09/18 15:54
== END 2018-09-09 17:15 | disposition home or self-care (01) | DRG 191 ==
LOC: ED 17:07 → SUATTDRO 20:06 → 2N 20:06

== ENCOUNTER 2019-03-13 14:07 | Inpatient (IN) ==
[2019-03-13] MEDS ORDERED: POLYETHYLENE (MIRALAX) 17 GM PACK PO PRN (14:27)
[2019-03-13] MEDS ORDERED: ACETAMINOPHEN 325 MG TAB PO PRN (14:27)
[2019-03-13] MEDS ORDERED: GLUCOSE 40% GEL 15 GM TUBE PO PRN (14:39)
[2019-03-13] MEDS ORDERED: GLUCAGON FOR INJ 1 MG VIAL SQ PRN (14:39)
[2019-03-13] MEDS ORDERED: DEXTROSE 50% 50 ML SYRINGE IV PRN (14:39)
[2019-03-13] MEDS ORDERED: GLUCOSE 10 TABS/TUBE PO PRN (14:39)
[2019-03-13] MEDS ORDERED: CARBOHYDRATES FOR HYPOGLYCEMIA PO PRN (14:39)
[2019-03-13] MEDS ORDERED: SODIUM CHLORIDE 0.9% 250 ML IV PRN (18:24)
[2019-03-13 18:36] LABS: Basophils # (auto) 0.02 K/uL (0-0.2); Basophils % (auto) 0.3 %; Eosinophils # (auto) 0.12 K/uL (0-0.5); Eosinophils % (auto) 1.7 %; Hematocrit (blood only) 25.6 % (42-52); Immature Granulocytes # (auto) 0.12 K/uL (0.00-0.02); Immature Granulocytes % (auto) 1.7 %; Lymphocytes # (auto) 1.72 K/uL (1.2-3.4); Lymphocytes % (auto) 23.9 %; Mean Corpuscular Hemoglobin 28.1 pg (25-34); Mean Corpuscular Hgb Conc 31.3 g/dL (32-36); Mean Corpuscular Volume 89.8 fL (80-100); Mean Platelet Volume 8.9 fL (7.4-10.4); Monocytes # (auto) 0.55 K/uL (0.11-0.59); Monocytes % (auto) 7.6 %; Neutrophils # (auto) 4.66 K/uL (1.4-6.5); Neutrophils % (auto) 64.8 %; Nucleated RBC # (auto) 0.16 K/uL (0-0); Nucleated RBC % (auto) 2.2 %; Platelet Count 113 K/uL (130-400); RDW Coefficient of Variation 18.2 % (11.5-14.5); RDW Standard Deviation 58.5 fL (36.4-46.3); Red Blood Count 2.85 M/uL (4.7-6.1); Reticulocyte % 3.6 % (0.5-2.0); White Blood Count 7.19 K/uL (4.8-10.8)
[2019-03-13] MEDS ORDERED: PATIENT'S HEIGHT AND/OR WEIGHT NEEDED SCH (18:45)
--- NOTE | 2019-03-13 18:46 | History & Physical Report ---
Date of Service March 13, 2019 Assessment & Plan (1) Anemia: This is an 83-year-old male who has known significant past medical history of CAD, aortic stenosis status post TAVR, chronic systolic heart failure with EF 40 to 45%, paroxysmal atrial fibrillation history of watchman procedure 11/2018, CKD stage IV, T2DM, HTN, HLD, COPD oxygen dependent, ADALI, anemia of chronic disease who presents to [facility] ED secondary to worsening anemia presenting at OSH. Refer to HPI for extensive history on previous 2 hospitalizations this past month Presented to [facility] due to drop in hemoglobin noted on outpatient lab 03/09 at 7.0 and symptomatic hypoglycemia this morning with blood sugar in the 30s, Hgb noted to be 6.7 received 1 unit PRBC and transferred for continuation of care Initial lab work up significant for hemoglobin and hematocrit 8.0 and 25.6, WBC 7.19, platelet count 113, potassium 5.2, BUN 56, creatinine 2.13, glucose 162, alk phos 498, LDH 465, albumin 2.6, reticulocyte elevated 3.6% Patient had chest x-ray done at outside facility which was within normal limits as well as urinalysis without concern for infection Patient without respiratory or urinary complaints therefore we will not repeat these at this time admit to PCU pt with elevated retic count and LDH order peripheral smear and haptoglobin for a.m. Hemoccult all stools pt recently with EGD/Colonoscopy w/o significant source of anemia He is not iron deficient concern for hemolysis given TAVR If heme + consider re-consulting GI await further hemolysis work up follow H/H (2) CHF (congestive heart failure): Patient is euvolemic on exam Daily standing weight Strict I's and O's Heart healthy, low-sodium diet Continue Coreg, Lasix, Aldactone Monitor renal function Last echocardiogram 02/2019 was unchanged from prior study in 08/2018 with mildly reduced LV systolic EF 45 to 50%, akinesis of the mid to distal inferior septum, distal inferior wall and apical segment. Bioprosthetic aortic valve noted. (3) PAF (paroxysmal atrial fibrillation): Rate and rhythm controlled on Coreg and amiodarone He is S/P watchman device procedure 11/2018 [facility] Previously on Eliquis but has not been discontinued secondary to anemia Continue ASA for now Monitor (4) Presence of Watchman left atrial appendage closure device: (5) Diabetes mellitus, type 2: A1C 6.2 02/20/19 may be a bit aggressive given age and co morbidities Pt insulin dependent would keep A1C above 7 to prevent hypoglycemia pt with hypoglycemic episode this a.m. BSG in 30s Place on Lantus/novolog per protocol, reduce insulin and titrate accordingly (6) Status post transcatheter aortic valve replacement (TAVR) using bioprosthesis: s/p TAVR 2/2 Aortic stenosis 12/01/18 at [facility] [employer] (7) CAD (coronary artery disease): currently denies CP/SOB continue ASA, statin, coreg (8) Chronic renal disease, stage IV: baseline Cr 2.0-2.2 bun/cr 56/2.13 today Monitor BMP K is 5.2 today. He is not on any potassium supplementation or alexander/arb low K diet (9) Hypertension: Blood pressure stable continue Coreg, Aldactone (10) Hyperlipidemia: continue statin (11) ADALI (obstructive sleep apnea): CPAP at bedtime (12) COPD (chronic obstructive pulmonary disease): No acute exacerbation Patient is not on any inhaled steroid Encourage incentive spirometry DuoNeb treatment as needed (13) Prostate cancer: Continue Casodex (14) DVT prophylaxis: SCD/TEDS no chemical prophylaxis given anemia History of Present Illness Chief Complaint: Transfer from OSH due to anemia Primary Care Provider: Roberto Mclaughlin DO This is an 83-year-old male who has known significant past medical history of CAD, aortic stenosis status post TAVR, chronic systolic heart failure with EF 40 to 45%, paroxysmal atrial fibrillation history of watchman procedure 11/2018, CKD stage IV, T2DM, HTN, HLD, COPD oxygen dependent, ADALI, anemia of chronic disease who presents to [facility] ED secondary to worsening anemia presenting at OSH. Of significance patient initially hospitalized 02/19-02/24 secondary to weakness and anemia. Presenting hemoglobin was 5.9 and required transfusion of 4 units PRBC maintaining an hgb around 9. He was seen and evaluated by GI at that time which recommended outpatient EGD and colonoscopy, aspirin was restarted. He further was evaluated by hematology in the peripheral smear. Anemia work-up revealed ferritin 1870, iron 59, TIBC 172. Peripheral smear remarkable for normocytic anemia and thrombocytopenia. Myelodysplasia could not be definitely be excluded. Platelet counts remained between 50 and 80. During hospitalization had episode of A. fib with RVR. Had watchman procedure left atrial appendage closure device in November 2018 at [facility]. Eliquis and Plavix discontinued in light of GI bleeding. ASA was restarted due to watchman device per cardiology (supposed to be on asa and Plavix x 1 yr due to watchman device but in light of GIB Plavix d/c). He was placed in IV amiodarone and transitioned to oral amiodarone for rhythm control. Pt discharged on 02/24 and unfortunately was re-hospitalized 02/25/19 to 03/01/2019 secondary to shortness of breath. Dx with acute on chronic S-CHF. Recent ech ocardiogram 02/2019 unchanged from prior study in 08/2018 with mildly reduced LV systolic EF 45 to 50%., akinesis of the mid to distal inferior septum, distal inferior wall, apical segment. A bio prosthetic aortic valve noted. Received IV diuresis initially; however discontinued due to increased renal fxn. Dx with UTI tx with ceftriaxone and transitioned to Keflex. Hgb remained stable during readmission, 8.5 at discharge. On 03/03 he had outpatient EGD/Colonoscopy. Colonoscopy significant for 4 polyps which were removed, diverticulosis and nonbleeding internal hemorrhoids. EGD revealed normal esophagus, nonbleeding erosive gastropathy. Biopsies pending. Recommendations were for capsule endoscopy. He now presents to OSH due to pt have episode of hypoglycemia this morning with BSG in 30s. Staff also informed patient of hgb drawn 03/09 to be 7.0. Due to decrease in hgb, hypoglycemia and SOB pt recommended to seek ED. At [facility] patient was noted to have H&H of 6.7 and 22.1, platelet count 150 otherwise CBC relatively unremarkable. His glucose was 269 on arrival. BUN and creatinine elevated at 50 and 2.21, calcium 6.8, sodium 141, potassium 5.2, chloride 102, alk phos 475. His troponin was WNL and EKG revealed normal sinus rhythm. Urinalysis unremarkable. He received 1 unit PRBC. It was recommended patient be transferred to [facility] secondary to patient preference as well as worsened anemia requiring transfusion. He was scheduled for capsule endoscopy as outpatient tomorrow. Currently patient is sitting up in bed and states, "I feel really good." He offers no acute concerns or complaints at this time. He denies any fever, chills, sweats, lightheadedness, dizziness, syncope, chest pain, shortness breath at rest, palpitations, hemoptysis, nausea, vomiting, diarrhea, dysuria, increased urgency or frequency with urination, melena, hematochezia. He denies any significant weight gain and/or loss. Denies peripheral edema. His appetite has been normal. States he had significantly low blood sugar this morning in the 30s secondary to being n.p.o. or capsule endoscopy this to be tomorrow. "I need to figure out why my blood counts are so low so my son stopped being so worried." Patient lives at home with his spouse and 2 children. He ambulate without assist device. Allergies Allergy/AdvReac Type Severity Reaction Status Date / Time iodine Allergy Intermediate "I GET Verified 03/01/19 15:03 HOT." Home Medications Home Medications Medication Instructions Recorded Confirmed Type Novolog Flexpen U-100 Insulin 17 unit SUBCUT DAILYBD 09/07/18 03/13/19 History Novolog Flexpen U-100 Insulin 20 unit SUBCUT QDB 09/07/18 03/13/19 History Novolog Flexpen U-100 Insulin 24 units SUBCUT DAILYBL 09/07/18 03/13/19 History bicalutamide [Casodex] 50 mg PO DAILY 09/07/18 03/13/19 History carvedilol [Coreg] 6.25 mg PO BID 09/07/18 03/13/19 History furosemide [Lasix] 80 mg PO DAILYBB 09/07/18 03/13/19 History ipratropium-albuterol 3 ml INHALATION Q6 PRN 09/07/18 03/13/19 History multivitamin 1 tab PO QAM 09/07/18 03/13/19 History rosuvastatin [Crestor] 5 mg PO DAILY 09/07/18 03/13/19 History Tresiba FlexTouch U-100 40 unit SUBCUT HS 02/24/19 03/13/19 History ferrous sulfate 325 mg PO DAILY 02/24/19 03/13/19 History amiodarone 200 mg PO BID 02/25/19 03/13/19 History aspirin [Aspir-Low] 81 mg PO QAM 03/01/19 03/13/19 History spironolactone 12.5 mg PO DAILY 30 Days #15 tab 03/01/19 03/13/19 Rx Past Med/Surg History Medical History CAD (coronary artery disease) (Chronic) On home oxygen therapy (Chronic) WEARS 2L NC CONT. Hyperlipidemia (Chronic) Hx of glaucoma (Chronic) Anemia (Chronic) Prostate cancer (Chronic) Diabetes mellitus, type 2 (Chronic) GI bleed (Chronic) ADALI (obstructive sleep apnea) (Chronic) PAF (paroxysmal atrial fibrillation) (Chronic) Shingles (Resolved) Presence of Watchman left atrial appendage closure device (Chronic) LBBB (left bundle branch block) (Chronic) Ischemic cardiomyopathy (Chronic) NSVT (nonsustained ventricular tachycardia) (Chronic) COPD (chronic obstructive pulmonary disease) (Chronic) CHF (congestive heart failure) (Chronic) Chronic renal disease, stage IV (Chronic) Hypertension (Chronic) Surgical History Status post transcatheter aortic valve replacement (TAVR) using bioprosthesis (Chronic) History of heart artery stent (Chronic) TOTAL 3 STENTS PLACED (LAST STENT PLACED 2 YEARS AGO) History of coronary artery bypass graft (Chronic) FOLLOWED BY DR. SHEA 3 VESSELS ([place])1996 History of tooth extraction (Chronic) History of colonoscopy (Chronic) History of prostatectomy Family History Father Family history of diabetes mellitus Social History Preferred Language: Albanian Communication Ability: Effective Strategic Communications Specialist Required: No Beliefs That Will Affect Care: None Current Living Situation: Spouse and Family Current Living Situation Comment: and 2 sons Other Information That Helps Us Care for You: No Feels Safe at Home: Yes Safety Concerns: Feels Safe At This Time Smoking Status: Former smoker Tobacco Type: cigarettes ; Do You Dip or Chew Tobacco: No ; Second Hand Exposure: No ; Tobacco Cessation Education Requested by Patient: No Hx Alcohol Use: No Hx Substance Use: No Review of Systems Review of Systems: All systems reviewed & are unremarkable except as noted in HPI & below Physical Exam Physical Exam: Constitutional: WD/WN, elderly, obese, M, vitals as above, NAD, sitting up in bed, pleasant, conversing easily but does get dyspenic with conversation Head: Normocephalic, Atraumatic Eyes: PERRL, conjunctivae normal, anicteric sclerae ENMT: external ear and nose normal, oropharynx normal Neck: trachea midline, no thyromegaly normal visual inspection Respiratory: normal respiratory effort, lungs clear to auscultation, no wheeze, rales, rhonchi. Normal insp/exp effort, no accessory muscle use Cardiovascular: RRR, 2/6 LUIS noted RUSB, trace pretibial edema, no erythema, warmth, negative homans sign, Vessels: no JVD or carotid bruit Chest: normal inspection of chest Abdomen: normal bowel sounds, soft, nontender, no hepatosplenomegaly Musculoskeletal: no cyanosis or clubbing, extremities motor strength 5/5 Skin: no rashes, warm normal turgor Neurologic: PERRL, EOMI, accommodation nl, no face palsy, no dysarthria CN's II-XI intact bilaterally and moves all extremities Psychiatric: A+Ox3, euthymic affect Lymphatic: no cervical or axillary lymphadenopathy : deferred Results & Data Vital Signs (Past 12 Hours) BP 169/64, pulse 60, respirations 16, temp 36.4, O2 91% on room air Laboratory Results Short CBC 03/13/19 Range/Units 18:21 WBC 7.19 (4.8-10.8) K/uL Hgb 8.0 L (14.0-18.0) g/dL Hct 25.6 L (42-52) % Plt Count 113 L (130-400) K/uL BMP 03/13/19 18:21 Sodium 140 Potassium 5.2 H Chloride 107 Carbon Dioxide 24 BUN 56 H Creatinine 2.13 H Glucose 162 H Calcium 7.6 L Liver Function 03/13/19 Range/Units 18:21 Total Bilirubin 0.7 (0.2-1) mg/dl AST 40 H (15-37) U/L ALT 65 (12-78) U/L Alkaline Phosphatase 498 H (45-117) U/L Albumin 2.6 L (3.4-5.0) gm/dl Code Status & VTE Plan Code Status Full Code Discussed with patient at bedside VTE Prophylaxis Plan VTE Prophylaxis will be ordered: Yes Reason for no VTE drug order: Contraindicated Supervising Physician Co-Signing Physician Notes HISTORY: Record reviewed. Patient interviewed and examined in his room around 20:00. Care coordinated with Bree Scanlon PA-C. Please refer to her documentation for patient's history. Briefly, 83-year-old male with history of ischemic heart disease, systolic CHF, aortic stenosis status post TAVR, atrial fibrillation status post Watchman procedure, DM, and other problems as noted. Hospitalized on 02/19/2019. Hemoglobin was 5.9 at that time. No overt GI bleeding. Patient received 4 units of packed RBCs. Hemoglobin 8.5 on day of discharge (02/26/2019). EGD performed on 03/03/2019 demonstrated nonbleeding gastropathy. Colonoscopy performed on 03/03/2019 demonstrated for polyps in the ascending colon measuring 6 mm. Patient was scheduled for a small bowel evaluation via capsule endoscopy. He was NPO for the procedure. This morning he had symptomatic hypoglycemia with a blood sugar of 33. He went to the ED at [facility] for evaluation. There he was found to have a hemoglobin of 6.7. Received 2 units of packed RBCs and arrangements were made for transfer to [facility] for further evaluation and treatment. EXAM: General- no distress Lungs- clear to auscultation; no respiratory distress Cardiovascular- RRR; III/ systolic murmur at base; no gallop; no JVD; trace pretibial edema Abdomen- + bowel sounds, soft, nontender Extremities- no cyanosis; no calf tenderness Neuro- alert, oriented Skin- warm & dry DATA: Hemoglobin 8.0, white count 7190, platelet count 113,000. Sodium 140, potassium 5.2, chloride 107, CO2 24, BUN 56, creatinine 2.13, random glucose 162. Total bilirubin 0.7, AST 40, ALT 65, alkaline phosphatase 498, LDH 465. Other lab studies as noted. ASSESSMENT AND PLAN: Severe normocytic anemia. Patient noted dark stools on one occasion in the recent past, but no hematochezia. EGD and colonoscopy on 03/03/2019 did not reveal source of bleeding. Capsule endoscopy pending. Anemia may be secondary to GI blood loss from AVMs or other pathology. Consider hemolytic anemia secondary to TAVR. LDH is elevated. Check haptoglobin and peripheral smear. Serum potassium 5.2. Patient is taking spironolactone 12.5 mg daily. Continue to follow potassium. Please refer to MACEY Scanlon's documentation for discussion of other issues. (1) CHF (congestive heart failure) Heart failure chronicity: unspecified Heart failure type: unspecified Qualified Code(s): I50.9 - Heart failure, unspecified
[2019-03-13 18:52] LABS: Albumin Level 2.6 gm/dl (3.4-5.0); BUN Creatinine Ratio 26.3 (10-20); Calcium 7.6 mg/dl (8.5-10.1); Creatinine Clr Calc Pharmacy 29.3 ml/min; Est GFR (African American) 32.6; Est GFR (Non-African American) 28.2; Magnesium 2.2 mg/dl (1.8-2.4); Potassium 5.2 mmol/L (3.5-5.1)
[2019-03-13 18:55] LABS: Albumin Globulin Ratio 0.6 (0.9-2); Bilirubin,Total 0.7 mg/dl (0.2-1); Globulin 4.7 gm/dl (2.5-4.0); Total Protein 7.3 gm/dl (6.4-8.2)
[2019-03-13 18:57] LABS: RBC Morphology Unremarkable
[2019-03-13] MEDS ORDERED: ALBUT/IPRATROP 3MG/0.5MG NEB 3 ML VIAL NEB PRN (19:11)
[2019-03-13] MEDS: INSULIN GLARGINE SOLOSTAR 100 UNITS/ML 3 ML PEN SC SCH (20:46)
[2019-03-13] MEDS: INSULIN ASPART 100 UNITS/ML 3 ML PEN SC SCH (20:47)
[2019-03-13] MEDS: CARVEDILOL 6.25 MG TAB PO SCH (20:48)
[2019-03-13] MEDS: AMIODARONE 200 MG TAB PO SCH (20:48)
[2019-03-13] MEDS ORDERED: ZOLPIDEM TARTRATE 5 MG TAB PO STA (22:55)
[2019-03-14] MEDS: FUROSEMIDE 40 MG TAB PO SCH (05:49)
[2019-03-14 07:16] LABS: Basophils # (auto) 0.02 K/uL (0-0.2); Basophils % (auto) 0.3 %; Eosinophils # (auto) 0.16 K/uL (0-0.5); Eosinophils % (auto) 2.3 %; Hematocrit (blood only) 24.2 % (42-52); Hemoglobin 7.7 g/dL (14.0-18.0); Immature Granulocytes % (auto) 1.5 %; Lymphocytes # (auto) 1.68 K/uL (1.2-3.4); Lymphocytes % (auto) 24.6 %; Mean Corpuscular Hemoglobin 28.5 pg (25-34); Mean Corpuscular Hgb Conc 31.8 g/dL (32-36); Mean Corpuscular Volume 89.6 fL (80-100); Monocytes # (auto) 0.61 K/uL (0.11-0.59); Monocytes % (auto) 8.9 %; Neutrophils # (auto) 4.27 K/uL (1.4-6.5); Neutrophils % (auto) 62.4 %; Nucleated RBC # (auto) 0.14 K/uL (0-0); Nucleated RBC % (auto) 2.1 %; Platelet Count 105 K/uL (130-400); RDW Coefficient of Variation 18.9 % (11.5-14.5); RDW Standard Deviation 60.1 fL (36.4-46.3); White Blood Count 6.84 K/uL (4.8-10.8)
[2019-03-14 07:43] LABS: Spherocytes Occasional
--- NOTE | 2019-03-14 07:49 | XRay Report ---
SINGLE VIEW CHEST CLINICAL HISTORY: CHF. FINDINGS: An AP, portable, upright chest radiograph is compared to study dated 03/13/2019. The examina tion is degraded by portable technique and patient rotation. The patient is status post midline villegas otomy. The heart is enlarged noting atherosclerotic calcification of the thoracic aorta. There is mil d pulmonary vascular congestion. There are calcified hilar nodes. Bibasilar atelectasis is observed. There are scattered calcified granulomas. No airspace consolidation or large pleural effusion is iden tified. No pneumothorax is seen. The skeletal structures are osteopenic. The bony thorax is grossly i ntact. IMPRESSION: Cardiomegaly with mild pulmonary vascular congestion. Electronically signed by: Hal Weems M.D. 03/14/2019 7:48 AM
[2019-03-14 08:16] LABS: Albumin Level 2.5 gm/dl (3.4-5.0); BUN Creatinine Ratio 23.9 (10-20); Calcium 7.4 mg/dl (8.5-10.1); Creatinine Clr Calc Pharmacy 29.8 ml/min; Est GFR (African American) 33.2; Est GFR (Non-African American) 28.7; Potassium 4.7 mmol/L (3.5-5.1)
[2019-03-14] MEDS: INSULIN ASPART 100 UNITS/ML 3 ML PEN SC SCH ×4 (08:18→20:56)
[2019-03-14 08:19] LABS: Albumin Globulin Ratio 0.6 (0.9-2); Bilirubin,Total 0.5 mg/dl (0.2-1); Globulin 4.3 gm/dl (2.5-4.0); Total Protein 6.8 gm/dl (6.4-8.2)
[2019-03-14 09:21] LABS: Estimated Average Glucose 157 mg/dl; Hemoglobin A1C 7.1 % (4.5-5.6)
[2019-03-14] MEDS: CARVEDILOL 6.25 MG TAB PO SCH ×2 (09:46→20:57)
[2019-03-14] MEDS: SPIRONOLACTONE 25 MG TAB PO SCH (09:47)
[2019-03-14] MEDS: FERROUS SULFATE 325 MG TAB PO SCH (09:48)
[2019-03-14] MEDS: ASPIRIN 81 MG ECTAB PO SCH (09:49)
[2019-03-14] MEDS: ROSUVASTATIN CALCIUM 5 MG TAB PO SCH (09:49)
[2019-03-14] MEDS: MULTIVITAMIN TAB PO SCH (09:49)
[2019-03-14] MEDS: BICALUTAMIDE 50 MG TAB PO SCH (09:51)
[2019-03-14] MEDS: AMIODARONE 200 MG TAB PO SCH ×2 (09:53→20:58)
[2019-03-14] MEDS ORDERED: SODIUM CHLORIDE 0.9% 250 ML IV PRN (10:31)
--- NOTE | 2019-03-14 17:46 | Hospitalist Progress Note ---
Date of Service March 14, 2019 Assessment & Plan (1) Anemia: This is an 83-year-old male who has known significant past medical history of CAD, aortic stenosis status post TAVR, chronic systolic heart failure with EF 40 to 45%, paroxysmal atrial fibrillation history of watchman procedure 11/2018, CKD stage IV, T2DM, HTN, HLD, COPD oxygen dependent, ADALI, anemia of chronic disease who presents to [facility] ED secondary to worsening anemia presenting at OSH. Likely secondary to chronic GI blood loss Recent negative EGD and colonoscopy with removal of few polyps but without any acute bleeding He is going to have capsule endoscopy as an outpatient for further evaluation Presented to [facility] due to drop in hemoglobin noted on outpatient lab 03/09 at 7.0 and symptomatic hypoglycemia this morning with blood sugar in the 30s, Hgb noted to be 6.7 Received 1 unit PRBC and transferred for continuation of care Hemoglobin 7.7 this morning on 03/14 No evidence of GI bleeding which seems to be chronic We will give another unit of blood transfusion Discussed with the family members Likely discharge tomorrow provided no acute blood loss from the GI tract (2) CHF (congestive heart failure): Patient is euvolemic on exam Daily standing weight Strict I's and O's Heart healthy, low-sodium diet Continue Coreg, Lasix, Aldactone Last echocardiogram 02/2019 was unchanged from prior study in 08/2018 with mildly reduced LV systolic EF 45 to 50%, akinesis of the mid to distal inferior septum, distal inferior wall and apical segment. Bioprosthetic aortic valve noted. Denies any cardiac symptoms (3) PAF (paroxysmal atrial fibrillation): Rate and rhythm controlled on Coreg and amiodarone He is S/P watchman device procedure 11/2018 [facility] Previously on Eliquis but has not been discontinued secondary to anemia Continue ASA for now Strongly advised to keep appointment with his lead software test engineer (4) Presence of Watchman left atrial appendage closure device: (5) Diabetes mellitus, type 2: A1C 6.2 02/20/19 may be a bit aggressive given age and co morbidities Pt insulin dependent would keep A1C above 7 to prevent hypoglycemia pt with hypoglycemic episode this a.m. BSG in [address] on Lantus/novolog per protocol, reduce insulin and titrate accordingly (6) Status post transcatheter aortic valve replacement (TAVR) using bioprosthesis: s/p TAVR 2/2 Aortic stenosis 12/01/18 at [place] Evaluated by lead software test engineer during his recent past 2 admissions in the hospital Remains stable (7) CAD (coronary artery disease): currently denies CP/SOB continue ASA, statin, coreg (8) Chronic renal disease, stage IV: baseline Cr 2.0-2.2 bun/cr 56/2.13 today Monitor BMP K is 5.2 today. He is not on any potassium supplementation or alexander/arb low K diet (9) Hypertension: Blood pressure stable continue Coreg, Aldactone (10) Hyperlipidemia: continue statin (11) ADALI (obstructive sleep apnea): CPAP at bedtime (12) COPD (chronic obstructive pulmonary disease): No acute exacerbation Patient is not on any inhaled steroid Encourage incentive spirometry DuoNeb treatment as needed (13) Prostate cancer: Continue Casodex (14) DVT prophylaxis: SCD/TEDS no chemical prophylaxis given anemia Has had a long discussion with the family members including the , [id number] and the son Answered all of their questions If he has been feeling a lot better tomorrow will be discharged home He will reschedule for capsular endoscopy as an outpatient and PCP appointment Was advised to have a follow-up with lead software test engineer within 2 to 3 weeks Subjective 03/14 Patient was seen and examined in telemetry unit He was transferred [facility] following 1 unit of blood transfusion because of low hemoglobin <7 He did not have any symptoms and he does not have any symptoms as of today He denies any chest pain and/or palpitation, any abdominal pain, nausea and/or vomiting Review of Systems Review of Systems: All systems reviewed and are unremarkable except as noted below Constitutional: + weakness Respiratory: + dyspnea on exertion; no dyspnea Cardiovascular: no chest pain Neurologic: Alert, awake and oriented x3. Generally weak Physical Exam Physical Exam: No apparent distress at rest lying in bed comfortably Constitutional: well developed and well nourished; no acute distress and not ill appearing Eyes: PERRL, conjunctivae normal, anicteric sclerae ENMT: external ear and nose normal, oropharynx normal Neck: trachea midline, no thyromegaly Respiratory: normal respiratory effort and + respiratory distress (Minimal respiratory distress at rest but the patient denies) Auscultation: lungs clear to auscultation bilaterally Cardiovascular: Rate/Rhythm: regular rate and regular rhythm Heart Sounds: + murmur (2/6 over precordium) Gastrointestinal (Abdomen): Inspection/Auscultation: abdomen normal to inspection and normal bowel sounds Percussion/Palpation: abdomen soft Musculoskeletal: No acute arthritis in any of the joints Neurologic: moves all extremities; no focal motor deficits Generally weak and lethargic Lymphatic: no cervical or axillary lymphadenopathy Results & Data Vital Signs (Past 12 Hours) Vital Signs Temp Pulse Pulse Pulse Resp BP BP 03/14/19 16:58 58 L 03/14/19 16:12 36.5 C 56 L 18 151/68 H 03/14/19 13:25 36.6 C 51 L 16 144/75 H 03/14/19 12:24 36.5 C 52 L 16 122/70 03/14/19 11:54 36.4 C L 58 L 18 106/65 03/14/19 11:39 36.5 C 55 L 18 112/49 L 03/14/19 11:19 36.8 C 56 L 18 116/67 03/14/19 11:06 36.5 C 58 L 19 128/70 03/14/19 08:37 36.7 C 66 18 156/67 H 03/14/19 07:14 36.7 C 57 L 18 133/73 Pulse Ox 03/14/19 16:58 03/14/19 16:12 96 03/14/19 13:25 97 03/14/19 12:24 96 03/14/19 11:54 97 03/14/19 11:39 97 03/14/19 11:19 95 03/14/19 11:06 90 03/14/19 08:37 92 03/14/19 07:14 92 Laboratory Results Short CBC 03/13/19 03/14/19 Range/Units 18:21 06:52 WBC 7.19 6.84 (4.8-10.8) K/uL Hgb 8.0 L 7.7 L (14.0-18.0) g/dL Hct 25.6 L 24.2 L (42-52) % Plt Count 113 L 105 L (130-400) K/uL BMP 03/13/19 03/14/19 18:21 06:52 Sodium 140 140 Potassium 5.2 H 4.7 Chloride 107 109 H Carbon Dioxide 24 22 BUN 56 H 50 H Creatinine 2.13 H 2.10 H Glucose 162 H 126 H Calcium 7.6 L 7.4 L Liver Function 03/13/19 03/14/19 Range/Units 18:21 06:52 Total Bilirubin 0.7 0.5 (0.2-1) mg/dl AST 40 H 38 H (15-37) U/L ALT 65 55 (12-78) U/L Alkaline Phosphatase 498 H 477 H (45-117) U/L Albumin 2.6 L 2.5 L (3.4-5.0) gm/dl Medications Administered Current Inpatient Medications Acetaminophen (Tylenol) 650 mg PO Q4H PRN PRN Reason: Pain or Fever Stop: 04/12/19 14:26 Albuterol (Duoneb) 3 ml NEB Q4R PRN PRN Reason: Shortness Of Breath/wheezing Stop: 04/12/19 22:59 Amiodarone HCl (Cordarone) 200 mg PO BID [facility] Stop: 04/12/19 20:59 Last Admin: 03/14/19 09:53 Dose: 200 mg Documented by: Aspirin (Ecotrin Ectab) 81 mg PO QAM [facility] Stop: 04/13/19 08:59 Last Admin: 03/14/19 09:49 Dose: 81 mg Documented by: Bicalutamide (Casodex) 50 mg PO DAILY [facility] Stop: 04/13/19 08:59 Last Admin: 03/14/19 09:51 Dose: 50 mg Documented by: Carvedilol (Coreg) 6.25 mg PO BID [facility] Stop: 04/12/19 20:59 Last Admin: 03/14/19 09:46 Dose: 6.25 mg Documented by: Dextrose (Dextrose 50%) 25 - 50 ml IV UD PRN; Protocol PRN Reason: Hypoglycemia Protocol Stop: 04/12/19 14:38 Ferrous Sulfate (Feosol) 325 mg PO DAILY [facility] Stop: 04/13/19 08:59 Last Admin: 03/14/19 09:48 Dose: 325 mg Documented by: Furosemide (Lasix) 80 mg PO DAILYBB [facility] Stop: 04/13/19 06:29 Last Admin: 03/14/19 05:49 Dose: 80 mg Documented by: Glucagon (Glucagen) 1 mg SQ UD PRN; Protocol PRN Reason: Hypoglycemia Protocol Stop: 04/12/19 14:38 Glucose (Dex4 Glucose) 4 - 8 tabs PO UD PRN; Protocol PRN Reason: Hypoglycemia Protocol Stop: 04/12/19 14:38 Glucose (Glucose 40%) 15 - 30 gm PO UD PRN; Protocol PRN Reason: Hypoglycemia Protocol Stop: 04/12/19 14:38 Sodium Chloride (Nss) 250 mls @ 15 mls/hr IV .[id number] PRN PRN Reason: For Transfusion Stop: 04/12/19 18:23 Sodium Chloride (Nss) 250 mls @ 15 mls/hr IV .[id number] PRN PRN Reason: For Transfusion Stop: 04/13/19 10:30 Insulin Aspart (Novolog Flexpen) 0 units SC ACHS [facility] Stop: 04/12/19 20:59 Last Admin: 03/14/19 17:37 Dose: 3 units Documented by: Insulin Glargine (Lantus Solostar Pen) 0 - 25 units SC HS [facility] Stop: 04/12/19 20:59 Last Admin: 03/13/19 20:46 Dose: 25 units Documented by: Miscellaneous (Carbohydrates For Hypoglycemia) 15 - 30 gm PO UD PRN PRN Reason: Hypoglycemia Treatment Stop: 04/12/19 14:38 Multivitamins (Multivitamin Tab) 1 tab PO QAM [facility] Stop: 04/13/19 08:59 Last Admin: 03/14/19 09:49 Dose: 1 tab Documented by: Polyethylene Glycol (Miralax Powder Packet) 17 gm PO DAILY PRN PRN Reason: Constipation Stop: 04/12/19 14:26 Rosuvastatin Calcium (Crestor) 5 mg PO DAILY [facility] Stop: 04/13/19 08:59 Last Admin: 03/14/19 09:49 Dose: 5 mg Documented by: Spironolactone (Aldactone) 12.5 mg PO DAILY [facility] Stop: 04/13/19 08:59 Last Admin: 03/14/19 09:47 Dose: 12.5 mg Documented by: (1) CHF (congestive heart failure) Heart failure chronicity: unspecified Heart failure type: unspecified Qualified Code(s): I50.9 - Heart failure, unspecified
[2019-03-14] MEDS: INSULIN GLARGINE SOLOSTAR 100 UNITS/ML 3 ML PEN SC SCH (20:55)
[2019-03-15 00:12] VITALS: O2SAT 95
[2019-03-15] MEDS: FUROSEMIDE 40 MG TAB PO SCH (05:34)
[2019-03-15 06:30] LABS: Hemoglobin 8.7 g/dL (14.0-18.0); Mean Corpuscular Hemoglobin 29.1 pg (25-34); Mean Corpuscular Hgb Conc 32.2 g/dL (32-36); Mean Corpuscular Volume 90.3 fL (80-100); Nucleated RBC # (auto) 0.12 K/uL (0-0); Nucleated RBC % (auto) 1.8 %; RDW Standard Deviation 58.1 fL (36.4-46.3); Red Blood Count 2.99 M/uL (4.7-6.1); White Blood Count 6.28 K/uL (4.8-10.8)
[2019-03-15 07:06] LABS: Mean Platelet Volume 9.2 fL (7.4-10.4); Platelet Count 95 K/uL (130-400)
[2019-03-15 07:07] LABS: BUN Creatinine Ratio 21.7 (10-20); Calcium 7.7 mg/dl (8.5-10.1); Creatinine Clr Calc Pharmacy 32.6 ml/min; Est GFR (African American) 37.2; Est GFR (Non-African American) 32.1; Magnesium 2.2 mg/dl (1.8-2.4); Potassium 4.5 mmol/L (3.5-5.1)
[2019-03-15 07:54] LABS: Anisocytosis Present; Basophils # (auto) 0.02 K/uL (0-0.2); Basophils % (auto) 0.3 %; Eosinophils # (auto) 0.22 K/uL (0-0.5); Eosinophils % (auto) 3.5 %; Immature Granulocytes # (auto) 0.06 K/uL (0.00-0.02); Lymphocytes # (auto) 1.67 K/uL (1.2-3.4); Lymphocytes % (auto) 26.6 %; Monocytes # (auto) 0.53 K/uL (0.11-0.59); Monocytes % (auto) 8.4 %; Neutrophils # (auto) 3.78 K/uL (1.4-6.5); Neutrophils % (auto) 60.2 %
[2019-03-15] MEDS: SPIRONOLACTONE 25 MG TAB PO SCH (08:10)
[2019-03-15] MEDS: BICALUTAMIDE 50 MG TAB PO SCH (08:10)
[2019-03-15] MEDS: FERROUS SULFATE 325 MG TAB PO SCH (08:10)
[2019-03-15] MEDS: ASPIRIN 81 MG ECTAB PO SCH (08:10)
[2019-03-15] MEDS: MULTIVITAMIN TAB PO SCH (08:10)
[2019-03-15] MEDS: ROSUVASTATIN CALCIUM 5 MG TAB PO SCH (08:10)
[2019-03-15] MEDS: INSULIN ASPART 100 UNITS/ML 3 ML PEN SC SCH ×2 (08:11→12:15)
[2019-03-15 08:12] VITALS: PULSE 68; TEMP 98.1
[2019-03-15] MEDS: CARVEDILOL 6.25 MG TAB PO SCH (08:14)
[2019-03-15] MEDS: AMIODARONE 200 MG TAB PO SCH (08:14)
--- NOTE | 2019-03-15 11:35 | Hospitalist Progress Note ---
Date of Service March 15, 2019 Assessment & Plan (1) Anemia: This is an 83-year-old male who has known significant past medical history of CAD, aortic stenosis status post TAVR, chronic systolic heart failure with EF 40 to 45%, paroxysmal atrial fibrillation history of watchman procedure 11/2018, CKD stage IV, T2DM, HTN, HLD, COPD oxygen dependent, ADALI, anemia of chronic disease who presents to [facility] ED secondary to worsening anemia presenting at OSH. Likely secondary to chronic GI blood loss Recent negative EGD and colonoscopy with removal of few polyps but without any acute bleeding He is going to have capsule endoscopy as an outpatient for further evaluation Presented to [facility] due to drop in hemoglobin noted on outpatient lab 03/09 at 7.0 and symptomatic hypoglycemia this morning with blood sugar in the 30s, Hgb noted to be 6.7 Received 1 unit PRBC and transferred for continuation of care Hemoglobin 7.7 this morning on 03/14 No evidence of GI bleeding which seems to be chronic We will give another unit of blood transfusion Discussed with the family members Likely discharge tomorrow provided no acute blood loss from the GI tract Hemoglobin is 8.7 today following a total of 2 units of blood transfusion during this episode 1 unit in [place] and 1 unit in this hospital Denies any symptoms wants to get out of the Discharge home today (2) CHF (congestive heart failure): Patient is euvolemic on exam Daily standing weight Strict I's and O's Heart healthy, low-sodium diet Continue Coreg, Lasix, Aldactone Last echocardiogram 02/2019 was unchanged from prior study in 08/2018 with mildly reduced LV systolic EF 45 to 50%, akinesis of the mid to distal inferior septum, distal inferior wall and apical segment. Bioprosthetic aortic valve noted. Denies any cardiac symptoms We will continue with diuretics as advised (3) PAF (paroxysmal atrial fibrillation): Rate and rhythm controlled on Coreg and amiodarone He is S/P watchman device procedure 11/2018 [facility] Previously on Eliquis but has not been discontinued secondary to anemia Continue ASA for now Strongly advised to keep appointment with his core java software engineer (4) Presence of Watchman left atrial appendage closure device: (5) Diabetes mellitus, type 2: A1C 6.2 02/20/19 may be a bit aggressive given age and co morbidities Pt insulin dependent would keep A1C above 7 to prevent hypoglycemia pt with hypoglycemic episode this a.m. BSG in [address] on Lantus/novolog per protocol, reduce insulin and titrate accordingly (6) Status post transcatheter aortic valve replacement (TAVR) using bioprosthesis: s/p TAVR 2/2 Aortic stenosis 12/01/18 at [place] Evaluated by core java software engineer during his recent past 2 admissions in the hospital Remains stable (7) CAD (coronary artery disease): currently denies CP/SOB continue ASA, statin, coreg (8) Chronic renal disease, stage IV: baseline Cr 2.0-2.2 bun/cr 56/2.13 today Monitor BMP K is 5.2 today. He is not on any potassium supplementation or alexander/arb low K diet (9) Hypertension: Blood pressure stable continue Coreg, Aldactone (10) Hyperlipidemia: continue statin (11) ADALI (obstructive sleep apnea): CPAP at bedtime (12) COPD (chronic obstructive pulmonary disease): No acute exacerbation Patient is not on any inhaled steroid Encourage incentive spirometry DuoNeb treatment as needed (13) Prostate cancer: Continue Casodex (14) DVT prophylaxis: SCD/TEDS no chemical prophylaxis given anemia Has had a long discussion with the family members including the , [id number] and the son Answered all of their questions If he has been feeling a lot better tomorrow will be discharged home He will reschedule for capsular endoscopy as an outpatient and PCP appointment Was advised to have a follow-up with core java software engineer within 2 to 3 weeks Discharge home today Subjective 03/14 Patient was seen and examined in telemetry unit He was transferred from [facility] following 1 unit of blood transfusion because of low hemoglobin <7 He did not have any symptoms and he does not have any symptoms as of today He denies any chest pain and/or palpitation, any abdominal pain, nausea and/or vomiting 03/15 Patient was seen and examined in the telemetry unit He denies any symptoms whatsoever and wants to get out of the hospital as soon as possible His hemoglobin has been a stabilized Denies any chest pain and/or palpitation, any abdominal pain nausea or vomiting, any shortness of breath on ambulation Review of Systems Review of Systems: All systems reviewed and are unremarkable except as noted below Constitutional: + weakness Respiratory: + dyspnea on exertion; no dyspnea Cardiovascular: no chest pain and no palpitations Gastrointestinal: no abdominal pain, no bloating, no nausea and no vomiting Neurologic: Alert, awake and oriented x3. Generally weak Physical Exam Physical Exam: No apparent distress at rest and sitting on a chair Constitutional: well developed and well nourished; no acute distress and not ill appearing Eyes: PERRL, conjunctivae normal, anicteric sclerae ENMT: external ear and nose normal, oropharynx normal Neck: trachea midline, no thyromegaly Respiratory: normal respiratory effort and + respiratory distress (Minimal respiratory distress at rest but the patient denies) Auscultation: lungs clear to auscultation bilaterally Cardiovascular: Rate/Rhythm: regular rate and regular rhythm Heart Sounds: + murmur (2/6 over precordium) Gastrointestinal (Abdomen): Inspection/Auscultation: abdomen normal to inspection and normal bowel sounds Percussion/Palpation: abdomen soft Musculoskeletal: Extremities: strength 5/5 throughout Neurologic: moves all extremities; no focal motor deficits Psychiatric: A+Ox3, euthymic affect Lymphatic: no cervical or axillary lymphadenopathy Results & Data Vital Signs (Past 12 Hours) Vital Signs Temp Pulse Pulse Resp BP BP Pulse Ox 03/15/19 08:09 36.7 C 68 16 115/70 95 03/15/19 03:31 36.9 C 80 16 129/69 95 03/15/19 00:11 36.9 C 55 L 16 121/55 L 95 Laboratory Results Short CBC 03/15/19 Range/Units 06:10 WBC 6.28 (4.8-10.8) K/uL Hgb 8.7 L (14.0-18.0) g/dL Hct 27.0 L (42-52) % Plt Count 95 L (130-400) K/uL BMP 03/15/19 06:10 Sodium 141 Potassium 4.5 Chloride 110 H Carbon Dioxide 23 BUN 41 H Creatinine 1.91 H Glucose 87 Calcium 7.7 L Medications Administered Current Inpatient Medications Acetaminophen (Tylenol) 650 mg PO Q4H PRN PRN Reason: Pain or Fever Stop: 04/12/19 14:26 Last Admin: 03/14/19 21:06 Dose: 650 mg Documented by: Albuterol (Duoneb) 3 ml NEB Q4R PRN PRN Reason: Shortness Of Breath/wheezing Stop: 04/12/19 22:59 Amiodarone HCl (Cordarone) 200 mg PO BID [facility] Stop: 04/12/19 20:59 Last Admin: 03/15/19 08:14 Dose: 200 mg Documented by: Aspirin (Ecotrin Ectab) 81 mg PO QAM [facility] Stop: 04/13/19 08:59 Last Admin: 03/15/19 08:10 Dose: 81 mg Documented by: Bicalutamide (Casodex) 50 mg PO DAILY [facility] Stop: 04/13/19 08:59 Last Admin: 03/15/19 08:10 Dose: 50 mg Documented by: Carvedilol (Coreg) 6.25 mg PO BID [facility] Stop: 04/12/19 20:59 Last Admin: 03/15/19 08:14 Dose: 6.25 mg Documented by: Dextrose (Dextrose 50%) 25 - 50 ml IV UD PRN; Protocol PRN Reason: Hypoglycemia Protocol Stop: 04/12/19 14:38 Ferrous Sulfate (Feosol) 325 mg PO DAILY [facility] Stop: 04/13/19 08:59 Last Admin: 03/15/19 08:10 Dose: 325 mg Documented by: Furosemide (Lasix) 80 mg PO DAILYBB [facility] Stop: 04/13/19 06:29 Last Admin: 03/15/19 05:34 Dose: 80 mg Documented by: Glucagon (Glucagen) 1 mg SQ UD PRN; Protocol PRN Reason: Hypoglycemia Protocol Stop: 04/12/19 14:38 Glucose (Dex4 Glucose) 4 - 8 tabs PO UD PRN; Protocol PRN Reason: Hypoglycemia Protocol Stop: 04/12/19 14:38 Glucose (Glucose 40%) 15 - 30 gm PO UD PRN; Protocol PRN Reason: Hypoglycemia Protocol Stop: 04/12/19 14:38 Sodium Chloride (Nss) 250 mls @ 15 mls/hr IV .[id number] PRN PRN Reason: For Transfusion Stop: 04/12/19 18:23 Sodium Chloride (Nss) 250 mls @ 15 mls/hr IV .[id number] PRN PRN Reason: For Transfusion Stop: 04/13/19 10:30 Insulin Aspart (Novolog Flexpen) 0 units SC ACHS [facility] Stop: 04/12/19 20:59 Last Admin: 03/15/19 08:11 Dose: 6 units Documented by: Insulin Glargine (Lantus Solostar Pen) 0 - 25 units SC HS [facility] Stop: 04/12/19 20:59 Last Admin: 03/14/19 20:55 Dose: 12 units Documented by: Miscellaneous (Carbohydrates For Hypoglycemia) 15 - 30 gm PO UD PRN PRN Reason: Hypoglycemia Treatment Stop: 04/12/19 14:38 Multivitamins (Multivitamin Tab) 1 tab PO QAM [facility] Stop: 04/13/19 08:59 Last Admin: 03/15/19 08:10 Dose: 1 tab Documented by: Polyethylene Glycol (Miralax Powder Packet) 17 gm PO DAILY PRN PRN Reason: Constipation Stop: 04/12/19 14:26 Rosuvastatin Calcium (Crestor) 5 mg PO DAILY [facility] Stop: 04/13/19 08:59 Last Admin: 03/15/19 08:10 Dose: 5 mg Documented by: Spironolactone (Aldactone) 12.5 mg PO DAILY [facility] Stop: 04/13/19 08:59 Last Admin: 03/15/19 08:10 Dose: 12.5 mg Documented by: (1) CHF (congestive heart failure) Heart failure chronicity: unspecified Heart failure type: unspecified Qualified Code(s): I50.9 - Heart failure, unspecified
[2019-03-15 12:05] VITALS: BP 121/55
--- NOTE | 2019-03-15 18:59 | Discharge Summary ---
Date of Service March 15, 2019 Admission HPI Per Admitting Provider This is an 83-year-old male who has known significant past medical history of CAD, aortic stenosis status post TAVR, chronic systolic heart failure with EF 40 to 45%, paroxysmal atrial fibrillation history of watchman procedure 11/2018, CKD stage IV, T2DM, HTN, HLD, COPD oxygen dependent, ADALI, anemia of chronic disease who presents to [facility] ED secondary to worsening anemia presenting at OSH. Of significance patient initially hospitalized 02/19-02/24 secondary to weakness and anemia. Presenting hemoglobin was 5.9 and required transfusion of 4 units PRBC maintaining an hgb around 9. He was seen and evaluated by GI at that time which recommended outpatient EGD and colonoscopy, aspirin was restarted. He further was evaluated by hematology in the peripheral smear. Anemia work-up revealed ferritin 1870, iron 59, TIBC 172. Peripheral smear remarkable for normocytic anemia and thrombocytopenia. Myelodysplasia could not be definitely be excluded. Platelet counts remained between 50 and 80. During hospitalization had episode of A. fib with RVR. Had watchman procedure left atrial appendage closure device in November [address] [facility]. Eliquis and Plavix discontinued in light of GI bleeding. ASA was restarted due to watchman device per cardiology (supposed to be on asa and Plavix x 1 yr due to watchman device but in light of GIB Plavix d/c). He was placed in IV amiodarone and transitioned to oral amiodarone for rhythm control. Pt discharged on 02/24 and unfortunately was re-hospitalized 02/25/19 to 03/01/2019 secondary to shortness of breath. Dx with acute on chronic S-CHF. Recent echocardiogram 02/2019 unchanged from prior study in 08/2018 with mildly reduced LV systolic EF 45 to 50%., akinesis of the mid to distal inferior septum, distal inferior wall, apical segment. A bio prosthetic aortic valve noted. Received IV diuresis initially; however discontinued due to increased renal fxn. Dx with UTI tx with ceftriaxone and transitioned to Keflex. Hgb remained stable during r eadmission, 8.5 at discharge. On 03/03 he had outpatient EGD/Colonoscopy. Colonoscopy significant for 4 polyps which were removed, diverticulosis and nonbleeding internal hemorrhoids. EGD revealed normal esophagus, nonbleeding erosive gastropathy. Biopsies pending. Recommendations were for capsule endoscopy. He now presents to OSH due to pt have episode of hypoglycemia this morning with BSG in 30s. Staff also informed patient of hgb drawn 03/09 to be 7.0. Due to decrease in hgb, hypoglycemia and SOB pt recommended to seek ED. At [facility] patient was noted to have H&H of 6.7 and 22.1, platelet count 150 otherwise CBC relatively unremarkable. His glucose was 269 on arrival. BUN and creatinine elevated at 50 and 2.21, calcium 6.8, sodium 141, potassium 5.2, chloride 102, alk phos 475. His troponin was WNL and EKG revealed normal sinus rhythm. Urinalysis unremarkable. He received 1 unit PRBC. It was recommended patient be transferred to [facility] secondary to patient preference as well as worsened anemia requiring transfusion. He was scheduled for capsule endoscopy as outpatient tomorrow. Currently patient is sitting up in bed and states, "I feel really good." He offers no acute concerns or complaints at this time. He denies any fever, chills, sweats, lightheadedness, dizziness, syncope, chest pain, shortness breath at rest, palpitations, hemoptysis, nausea, vomiting, diarrhea, dysuria, increased urgency or frequency with urination, melena, hematochezia. He denies any significant weight gain and/or loss. Denies peripheral edema. His appetite has been normal. States he had significantly low blood sugar this morning in the 30s secondary to being n.p.o. or capsule endoscopy this to be tomorrow. "I need to figure out why my blood counts are so low so my son stopped being so worried." Patient lives at home with his spouse and 2 children. He ambulate without assist device. Admission Exam Per Admitting Provider Physical Exam: Constitutional: WD/WN, elderly, obese, M, vitals as above, NAD, sitting up in bed, pleasant, conversing easily but does get dyspenic with conversation Head: Normocephalic, Atraumatic Eyes: PERRL, conjunctivae normal, anicteric sclerae ENMT: external ear and nose normal, oropharynx normal Neck: trachea midline, no thyromegaly normal visual inspection Respiratory: normal respiratory effort, lungs clear to auscultation, no wheeze, rales, rhonchi. Normal insp/exp effort, no accessory muscle use Cardiovascular: RRR, 2/6 LUIS noted RUSB, trace pretibial edema, no erythema, warmth, negative homans sign, Vessels: no JVD or carotid bruit Chest: normal inspection of chest Abdomen: normal bowel sounds, soft, nontender, no hepatosplenomegaly Musculoskeletal: no cyanosis or clubbing, extremities motor strength 5/5 Skin: no rashes, warm normal turgor Neurologic: PERRL, EOMI, accommodation nl, no face palsy, no dysarthria CN's II-XI intact bilaterally and moves all extremities Psychiatric: A+Ox3, euthymic affect Lymphatic: no cervical or axillary lymphadenopathy : deferred Principal Diagnosis Symptomatic anemia, improved with 2 units of blood transfusion, chronic GI bleed-EGD's have been unremarkable and will have capsule endoscopy as an o utpatient, paroxysmal atrial fibrillation, congestive heart failure, history of watchman procedure and TAVR Discharge Exam Constitutional well developed and well nourished; no acute distress and not ill appearing Eyes PERRL, conjunctivae normal, anicteric sclerae ENMT external ear and nose normal, oropharynx normal Neck trachea midline, no thyromegaly Respiratory normal respiratory effort and + respiratory distress (Minimal respiratory distress at rest but the patient denies) Auscultation: lungs clear to auscultation bilaterally Cardiovascular Rate/Rhythm: regular rate and regular rhythm Heart Sounds: + murmur (2/6 over precordium) Gastrointestinal (Abdomen) Inspection/Auscultation: abdomen normal to inspection and normal bowel sounds Percussion/Palpation: abdomen soft Musculoskeletal Extremities: strength 5/5 throughout Neurologic moves all extremities; no focal motor deficits Psychiatric A+Ox3, euthymic affect Lymphatic no cervical or axillary lymphadenopathy Discharge Data Allergies Allergy/AdvReac Type Severity Reaction Status Date / Time iodine Allergy Intermediate "I GET Verified 03/01/19 15:03 HOT." Consultations 03/13/19 14:29 Consult Case Management - Discharge Planning Routine Hospital Course (1) Anemia: This is an 83-year-old male who has known significant past medical history of CAD, aortic stenosis status post TAVR, chronic systolic heart failure with EF 40 to 45%, paroxysmal atrial fibrillation history of watchman procedure 11/2018, CKD stage IV, T2DM, HTN, HLD, COPD oxygen dependent, ADALI, anemia of chronic disease who presents to [facility] ED secondary to worsening anemia presenting at OSH. Likely secondary to chronic GI blood loss Recent negative EGD and colonoscopy with removal of few polyps but without any acute bleeding He is going to have capsule endoscopy as an outpatient for further evaluation Presented to [facility] due to drop in hemoglobin noted on outpatient lab 03/09 at 7.0 and symptomatic hypoglycemia this morning with blood sugar in the 30s, Hgb noted to be 6.7 Received 1 unit PRBC and transferred for continuation of care Hemoglobin 7.7 this morning on 03/14 No evidence of GI bleeding which seems to be chronic We will give another unit of blood transfusion Discussed with the family members Likely discharge tomorrow provided no acute blood loss from the GI tract Hemoglobin is 8.7 today following a total of 2 units of blood transfusion during this episode 1 unit in [place] and 1 unit in this hospital Denies any symptoms wants to get out of the Discharge home today (2) CHF (congestive heart failure): Patient is euvolemic on exam Daily standing weight Strict I's and O's Heart healthy, low-sodium diet Continue Coreg, Lasix, Aldactone Last echocardiogram 02/2019 was unchanged from prior study in 08/2018 with mildly reduced LV systolic EF 45 to 50%, akinesis of the mid to distal inferior septum, distal inferior wall and apical segment. Bioprosthetic aortic valve noted. Denies any cardiac symptoms We will continue with diuretics as advised (3) PAF (paroxysmal atrial fibrillation): Rate and rhythm controlled on Coreg and amiodarone He is S/P watchman device procedure 11/2018 [facility] Previously on Eliquis but has not been discontinued secondary to anemia Continue ASA for now Strongly advised to keep appointment with his corporate representative (4) Presence of Watchman left atrial appendage closure device: (5) Diabetes mellitus, type 2: A1C 6.2 02/20/19 may be a bit aggressive given age and co morbidities Pt insulin dependent would keep A1C above 7 to prevent hypoglycemia pt with hypoglycemic episode this a.m. BSG in [address] Place on Lantus/novolog per protocol, reduce insulin and titrate accordingly (6) Status post transcatheter aortic valve replacement (TAVR) using bioprosthesis: s/p TAVR 2/2 Aortic stenosis 12/01/18 at [place] Evaluated by corporate representative during his recent past 2 admissions in the hospital Remains stable (7) CAD (coronary artery disease): currently denies CP/SOB continue ASA, statin, coreg (8) Chronic renal disease, stage IV: baseline Cr 2.0-2.2 bun/cr 56/2.13 today Monitor BMP K is 5.2 today. He is not on any potassium supplementation or alexander/arb low K diet (9) Hypertension: Blood pressure stable continue Coreg, Aldactone (10) Hyperlipidemia: continue statin (11) ADALI (obstructive sleep apnea): CPAP at bedtime (12) COPD (chronic obstructive pulmonary disease): No acute exacerbation Patient is not on any inhaled steroid Encourage incentive spirometry DuoNeb treatment as needed (13) Prostate cancer: Continue Casodex (14) DVT prophylaxis: SCD/TEDS no chemical prophylaxis given anemia Has had a long discussion with the family members including the , [id number] and the son Answered all of their questions If he has been feeling a lot better tomorrow will be discharged home He will reschedule for capsular endoscopy as an outpatient and PCP appointment Was advised to have a follow-up with corporate representative within 2 to 3 weeks Discharge home today Total Time Total Time Spent Total Time Spent (In Minutes): 35 MINUTES Total Time Includes: Examination of the Patient, Discharge Planning, Medication Reconciliation and Communication With Other Providers Discharge Plan Discharge Items Patient Disposition: Home - Self-Care Reason For Visit: SYMPTOMATIC ANEMIA Discharge Diagnosis: Symptomatic anemia, improved with 2 units of blood transfusion, chronic GI bleed-EGD's have been unremarkable and will have capsule endoscopy as an outpatient, paroxysmal atrial fibrillation, congestive heart failure, history of watchman procedure and TAVR Condition on Discharge: Good Activity: Resume your previous activity Non-emergency contact: Primary Care Provider Call non-emergency contact if: you have any medication questions and your symptoms worsen Follow-up/Referrals: Roberto Mclaughlin DO [Primary Care Provider] - 03/18/19 1:05 pm (Video Capsule Enteroscopy on 03/31 @7:45 AM at [facility]) Diet: Carb Consistent or DM2, Heart Healthy and Low Sodium (2gm) Addtl Attending Provider Instructions: Please take precaution to avoid falls. Please make an appointment with your corporate representative within 2 to 3 weeks Pending Studies at Discharge: No Stand-Alone Forms: My [facility] Medications and DC Order Prescriptions: Continued aspirin [Aspir-Low] 81 mg Tablet,Delayed Release (Dr/Ec) 81 mg PO QAM RF: 0 ferrous sulfate 325 mg (65 mg iron) Tablet 325 mg PO DAILY RF: 0 Tresiba FlexTouch U-100 100 unit/mL (3 mL) Insulin Pen 40 unit SUBCUT HS RF: 0 amiodarone 200 mg tablet 200 mg PO BID RF: 0 spironolactone 25 mg Tablet 12.5 mg PO DAILY 30 Days Qty: 15 RF: 0 furosemide [Lasix] 40 mg tablet 80 mg PO DAILYBB RF: 0 bicalutamide [Casodex] 50 mg tablet 50 mg PO DAILY RF: 0 carvedilol [Coreg] 6.25 mg tablet 6.25 mg PO BID RF: 0 ipratropium-albuterol 0.5 mg-3 mg(2.5 mg base)/3 mL Solution For Nebulization 3 ml INHALATION Q6 PRN (Reason: Shortness Of Breath Or Wheezing) RF: 0 Novolog Flexpen U-100 Insulin 100 unit/mL (3 mL) insulin pen 20 unit subcut QDB RF: 0 Novolog Flexpen U-100 Insulin 100 unit/mL (3 mL) insulin pen 24 units subcut DAILYBL RF: 0 Novolog Flexpen U-100 Insulin 100 unit/mL (3 mL) insulin pen 17 unit subcut DAILYBD RF: 0 rosuvastatin [Crestor] 5 mg tablet 5 mg PO DAILY RF: 0 multivitamin Tablet 1 tab PO QAM RF: 0 Discharge Orders: Discharge Order (Routine); Ordered 03/15/19 Ordered By: Jomar Nichole/Other Patient Handouts: Anemia, Anemia and Kidney Disease Admission Data Admit Date/Time: 03/13/19 17:47 Attending Provider: Jomar Mijares Admit Provider: Ayan Obrien Primary Care Provider: Roberto Mclaughlin Other Providers: Ayan Obrien Other Interventions: Discharge Summary Assessment (RN) Last Done: 03/15/19 12:03 DC Date/Time DO NOT enter until pt leaves facility: 03/15/19 12:29
== END 2019-03-15 12:29 | disposition home health service (06) | DRG 378 ==
LOC: 2S 17:47 → SUATTDRO 17:47